=== PATIENT | male | born 1965 | race Caucasian/White ===

== ENCOUNTER 2024-05-24 14:57 | Outpatient (CLI) | payer OTHER, SELFPAY ==
--- NOTE | ~2024-05-24 | XR_ITS ---
XR abdomen/kub 1V Ordering provider: Ivette García PA-C History: . CALCIUM KIDNEY STONE . Comparison: None. FINDINGS: BOWEL: Nonobstructive bowel gas pattern. ORGANOMEGALY: None. SIGNIFICANT PATHOLOGIC CALCIFICATIONS: Calcifications in the right and left kidneys suggestive of sto corine. OTHER: No free air is seen under the diaphragm. Degenerative changes of the spine. IMPRESSION: NO ACUTE ABDOMINAL FINDINGS. Bilateral renal stones. Reviewed, dictated and finalized at location A.
== END 2024-05-24 14:58 | disposition home or self-care (01) ==
LOC: ANHIMG 15:03
PROVIDERS: Visit Provider Physician Assistant
DX: N20.0 Calculus of kidney (principal)
CPT/HCPCS: 74018

== ENCOUNTER 2024-06-28 00:14 | Day surgery (SDC) | payer OTHER, SELFPAY ==
--- NOTE | 2024-06-19 07:42 | PM.HPGS ---
History of Present Illness History of Present Illness Consent: Risks, benefits, and alternatives have been discussed and questions answered. Patient agrees to proceed with procedure. Chief complaint: right kidney stone Narrative: Vazquez Coles is a 59 year old male with a history of multiple recurrent stones. He 1st saw our nurse practitioner, Ivette Woodard, in November [address] scan at [facility] showed 2 stones in his left ureter and a 7 mm 10 mm stone in his right kidney. He opted to try to pass a left ureteral stones and did not return until May. Follow-up KUB showed an absence of identifiable stones in his left ureter but a 10 mm and 7 mm stone in his right kidney. After discussion options he is elected for right ESWL. Patient is aware of the risks including, but not limited to, adverse cardiopulmonary events, need for additional procedures, hematuria and perinephric hematoma Review of Systems Review of Systems: All systems reviewed & are unremarkable except as noted in HPI and below Assessment and Plan Assessment and plan (1) Right renal stone: Code(s): N20.0 - Calculus of kidney Status: Acute Assessment and Plan: Right ESWL
[2024-06-20 10:54] VITALS: BMI 30.8
--- NOTE | 2024-06-20 10:55 | PC.NURSE ---
Report to the Outpatient Waiting Room, entrance under the green pavilion located off [facility], at time _0600_ on date _[id number]_. Planned Procedure Time: _0730_. Time changes happen often and if your time is changed the preop area will call you the afternoon before. - You and your visitor will be asked to self-screen and do not enter if you have any COVID symptoms. - A mask is optional within the hospital at this time. Patients may have clear liquids (water, carbonated beverages, clear teas, apple juice) until 3 hours prior to surgery with a maximum of 20 ounces. - No food from midnight until time of surgery Take the following medications with a SIP of water the morning of surgery: ___Advair and nebulizer or albuterol inhaler if needed. DO NOT STOP ANY OF YOUR OTHER PRESCRIPTION MEDICATIONS PRIOR TO SURGERY ?EXCEPT THE FOLLOWING Medications to discontinue per physician Hold Meloxicam per Dr Figueroa. Date to take last dose Please no make-up, nail tongan, hairspray, perfume, deodorant, or body powder the day of surgery. No jewelry (including any body piercings) or valuables the day of surgery, leave them at home. Please take a shower or bath the night before, or the morning of, surgery with an antibacterial soap. Wear comfortable, loose fitting clothing. - Jewelry must be removed prior to entering the operating room. Rings and piercings that are not removed may be cut off. - The hospital will not accept responsibility for valuables. - Please leave all valuables, including medications, at home the day of surgery. If you are going home after surgery, a licensed set key driver must drive you home. - NO public transportation without another adult if you receive anesthesia. - We recommend that an adult stay with you for 24 hours following discharge. - We also recommend that you do not drive, make important decision, drink alcoholic beverages, or take any drugs that were not prescribed by your health care provider for at least 24 hours after your discharge time. Follow any additional instructions given to you from your surgeon. If you or anyone in your household have experienced Covid symptoms in the past week, please notify your surgeon or the nurse liaison at the phone number below for possible testing. Telephone instructions given to __Lucaroby__and asked if any additional questions and then verbalized understanding. Patient advised to call surgeon office or pre surgery nurse liaison [phone] if any additional questions.
[2024-06-28] VITALS (9 sets, daily range): BP systolic 119–158; BP diastolic 67–92; PULSE 83–94; RESP 14–18; TEMP 36.3–36.7; O2SAT 96–100
--- NOTE | ~2024-06-28 | XR_ITS ---
Supine and upright views of the abdomen Clinical history: Lithotripsy COMPARISON: 05/24/2024 Findings: Bowel gas pattern is nonspecific. No evidence for obstruction or free air. Bilateral nephro lithiasis is similar to prior exam. There are 11 mm and 10 mm stones in the right kidney. There are m ultiple smaller stones in the left kidney. There is a 1 cm ovoid stone projecting over the left L4 tr ansverse process, likely a mid left ureteral stone. Osseous structures are intact. Impression: 1 cm mid left ureteral stone. Additional bilateral nephrolithiasis, as noted above, similar to prior exam. Reviewed, dictated and finalized at location M. Impression: 1 cm mid left ureteral stone. Additional bilateral nephrolithiasis, as noted above, similar to prior exam.
--- NOTE | 2024-06-28 05:54 | ECG_ITS ---
Test Date: 2024-06-28 07:09:44 Measurements Intervals [place] Rate: 82 P: 30 CT: 131 QRS: 59 QRSD: 101 T: 16 QT: 356 QTc: 417 Interpretive Statements SINUS RHYTHM NORMAL ELECTROCARDIOGRAM No previous ECG available for comparison Electronically Signed On 06-28-2024 14:58:40 CDT by Xavier Win M.D.
--- NOTE | 2024-06-28 06:18 | WPDHPUPDATE1 ---
History and Physical Update Update Date/Time: 06/28/24 06:18 History and Physical has been reviewed, including an updated exam of the patient. There are NO changes in the patient's condition. Risks, benefits, and alternatives have been discussed and questions answered. Patient agrees to proceed with procedure.
[2024-06-28 06:36] LABS: Add Urine Microscopic? YES; Appearance Urine Clear (Clear); Bacteria Urine None Seen /hpf; Bilirubin Urine Negative (Negative); Blood Urine 1+ (Negative); Color Urine Yellow (Yellow); Glucose Urine UA Negative (Negative); Ketones Urine Negative (Negative); Leukocyte Esterase Ur Trace LEU/UL (Negative); Nitrate Urine Negative (Negative); Non Pathogenic Casts 0-2; Protein Urine Negative (Negative); Specific Grav Ur 1.013 (1.001-1.035); Squamous Epithelial Cell Urine None Seen /hpf (Few); Urobilinogen Urine 0.2 mg/dL (<2.0); pH Urine 5.5 (5.0-9.0)
[2024-06-28 07:17] LABS: Partial Thromboplastin Time 34.4 Seconds (22.3-36.8)
--- NOTE | 2024-06-28 07:19 | WPDANESEPPF ---
Anes - Initial Pre Proc Eval Procedure: Operation Date: 06/28/24 07:30 Proposed Procedures p Right Extracorporeal Shock Wave Lithotripsy - Holden Figueroa MD Date/Time: 06/28/24 07:19 Surgeon: Holden Figueroa MD Pre Op Diagnosis: right kidney stone Patient Data Age: 59 Gender: M Height: 1.65 m Weight: 83.8 kg Last Vital Signs Temp 36.7 C 06/28/24 07:10 Pulse 90 06/28/24 07:10 Resp 18 06/28/24 07:10 BP 158/92 H 06/28/24 07:10 Pulse Ox 99 06/28/24 07:10 O2 Del Method Room Air 06/28/24 07:10 Allergies Allergy/AdvReac Type Severity Reaction Status Date / Time Iodinated Contrast Media Allergy Severe Anaphylactic Verified 06/28/24 07:08 Shock Sulfa (Sulfonamide Allergy Severe Hives Verified 06/28/24 07:08 Antibiotics) tetanus and diphtheria Allergy Severe Swelling Verified 06/28/24 07:08 toxoids Home Medications Medication Instructions Recorded Confirmed Type albuterol sulfate 90 mcg/actuation 2 inh inhalation [id number] PRN 06/20/24 06/28/24 History aerosol inhaler Dyspnea fluticasone 250 mcg-salmeterol 50 1 inh inhalation BID 06/20/24 06/20/24 History mcg/dose blistr powdr for inhalation hydrocodone 5 mg-acetaminophen 325 1 tablet PO Q4H PRN Pain 06/20/24 06/28/24 History mg tablet levofloxacin 500 mg tablet 500 mg PO DAILY 06/20/24 06/20/24 History meloxicam 7.5 mg tablet 7.5 mg PO DAILY PRN Pain 06/20/24 06/28/24 History montelukast 10 mg tablet 10 mg PO HS 06/20/24 06/20/24 History tamsulosin 0.4 mg capsule 0.4 mg PO HS 06/20/24 06/20/24 History Laboratory Tests 06/28/24 06:22 PT 13.0 Seconds (11.1-14.7) INR 1.0 APTT 34.4 Seconds (22.3-36.8) Urine Color Yellow (Yellow) Urine Appearance Clear (Clear) Urine pH 5.5 (5.0-9.0) Ur Specific Slater 1.013 (1.001-1.035) Urine Protein Negative mg/dL (Negative) Urine Glucose (UA) Negative mg/dL (Negative) Urine Ketones Negative mg/dL (Negative) Ur Blood (Man) 1+ H (Negative) Urine Nitrate Negative (Negative) Urine Bilirubin Negative (Negative) Urine Urobilinogen 0.2 mg/dL (<2.0) Leukocyte Esterase Rfl Trace H BUBBA/UL (Negative) Urine RBC 6-10 H /hpf (0-2) Urine WBC 6-10 H /hpf (0-3) Ur Squamous Epith Cells None seen /hpf (Few) Urine Bacteria None seen /hpf Urine Casts 0-2 Patient hx anesthesia problems: none Family hx anesthesia problems: none Results Review: All pre-operative results and documents have been reviewed as part of the pre-operative evaluation. [facility] Social History Social History Smoking packs per day: 1 Smoking cigarettes per day: 20.0 Years smoked: 40 Smoking pack-years: 40.00 Smoking status: Former smoker Tobacco type: cigarettes Smoking end date: 06/17/24 Alcohol intake: current Living arrangements: with family Spiritual care concerns: No Anes - Eval Final PreProcedure Day of Procedure 06/28/24 07:19 Patient weight: overweight Heart: regular rate and rhythm Lungs: decreased breath sounds Airway: Mallampati scale class II Neurological: alert and oriented Last oral intake: >/= 8 hours ASA classification: III Emergent: no Anesthetic plan: proceed Anesthesia type and monitoring: general GIVS and standard monitoring Results Review: All pre-operative results and documents have been reviewed as part of the pre-operative evaluation. Informed Consent: The patient's anesthetic plan and its attendant risks and benefits were discussed with the patient/family/POA. Questions were solicited and answers provided to the satisfaction of the patient/family/POA.
--- NOTE | 2024-06-28 08:13 | W.PM.PROC2 ---
Procedure Note - Detailed Date of Procedure 06/28/24 Pre-op Diagnosis Left ureteral and kidney stones Post-op Diagnosis Same Procedure Performed Left ESWL Surgeon Holden Figueroa MD Anesthesia General Description of Procedure The patient was brought to the operative suite where he was placed in the supine position on the Dornier lithotripsy table. The focal point of the lithotripter was placed first at a 7-8mm left mid-uretera calculus. A total of 2500 shocks were delivered at a power setting of 4. At that point there was very good fragmentation. We then treated 3 small stones in left kidney -> delivering 500 shocks to each. There appeared to be good fragmentation of the stone. The patient tolerated the procedure well and was taken to the recovery room in good condition. Drains No Packing No Pathology Yes Complications No immediate complications
[2024-06-28] MEDS: LACTATED RINGERS 1,000 ML 30 ML IV CONT ×2 (08:30)
[2024-06-28] MEDS: ceFAZolin 2 GM/D5W 50 ML 2 GM/50 ML BAG IVPB (08:30)
[2024-06-28] MEDS: fentaNYL CITRATE INJ (*CRX) 100 MCG/2 ML VIAL 25 MCG IV PUSH ×3 (09:06→09:11)
[2024-06-28] MEDS: oxyCODONE HCL (*CRX) 5 MG TAB IR PO (09:52)
== END 2024-06-28 10:11 | disposition home or self-care (01) ==
PROVIDERS: Visit Provider Urology
PROC: (CPT 50590; principal; 2024-06-28 07:30)
DX: N20.2 Calculus of kidney with calculus of ureter (principal); Z79.51 Long term (current) use of inhaled steroids; Z87.891 Personal history of nicotine dependence
CPT/HCPCS: 50590; 36415; 74018; 81001; 85610; 85730; 87086; 93005; A9270; J0690; J1100; J2250; J2371; J2405; J2704; J3010; J7120

== ENCOUNTER 2025-08-15 00:58 | Day surgery (SDC) | payer OTHER, SELFPAY ==
[2025-08-08 08:30] VITALS: BMI 29.9
--- NOTE | 2025-08-08 08:33 | PC.NURSE ---
[facility] has started construction of its new state of the art ER which will open Spring 2026. With this, we anticipate parking may be a challenge for some our surgical patients and families. Parking spaces are limited but are available for all Surgical, obstetrics, and ER patients sharing this lot. If you arrive and find you are having a hard time finding a parking space, please note that we understand the challenges, please drive around the hospital and park near Hospital Entrance 1. When you enter this entrance, you can ask a volunteer to direct or take you back to the surgical waiting area to check in. We appreciate everyone?s understanding of these expected challenges while we build for your future. Report to the Outpatient Waiting Room, entrance under the green pavilion located off [address], at time _0830_ on date _[id number]_. Planned Procedure Time: _1030_.? Time changes happen often and if your time is changed the preop area will call you the afternoon before. - You and your visitor will be asked to self-screen and do not enter if you have any COVID symptoms. Please call surgeon if you need to reschedule. - A mask is optional within the hospital at this time. Patients may have clear liquids (water, carbonated beverages, clear teas, apple juice) until 3 hours prior to surgery with a maximum of 20 ounces. - No food from midnight until time of surgery and no smoking, or chewing tobacco (or any form of nicotine). No chewing gum, candy or mints. Take only the following medications with a SIP of water on the morning of surgery: ____Inhalers and if needed nebulizer. DO NOT STOP ANY OF YOUR OTHER PRESCRIPTION MEDICATIONS PRIOR TO SURGERY EXCEPT THE FOLLOWING Hold all vitamins and supplements for 3 days per anesthesiologist. Medications to discontinue per physician ____Patient stopped Meloxicam [id number] Date to take last dose Please no make-up, nail new zealander, hairspray, perfume, deodorant, or body powder the day of surgery.? No jewelry (including any body piercings) or valuables the day of surgery, leave them at home.? Please take a shower or bath the night before, or the morning of, surgery with an antibacterial soap.? Wear comfortable, loose fitting clothing.? - Jewelry must be removed prior to entering the operating room.? Rings and piercings that are not removed may be cut off. - The hospital will not accept responsibility for valuables.? - Please leave all valuables, including medications, at home the day of surgery. If you are going home after surgery, a licensed company tanker truck driver must drive you home.? - NO public transportation without another adult if you receive anesthesia. - We recommend that an adult stay with you for 24 hours following discharge. - We also recommend that you do not drive, make important decision, drink alcoholic beverages, or take any drugs that were not prescribed by your health care provider for at least 24 hours after your discharge time. Follow any additional instructions given to you from your surgeon. Telephone instructions given to __Tim___and asked if any additional questions and then verbalized understanding. Patient advised to call surgeon office or pre surgery nurse liaison [phone] if any additional questions.
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
[2025-08-15] VITALS (8 sets, daily range): BP systolic 138–186; BP diastolic 71–113; PULSE 82–100; RESP 14–18; TEMP 36.4–36.7; O2SAT 97–100
--- NOTE | ~2025-08-15 | XR_ITS ---
Abdominal radiograph(s) INDICATION: ESWL COMPARISON: 06/28/2024 TECHNIQUE: 2 views AP abdomen FINDINGS: 2 right-sided renal stones persist, both roughly 9-10 mm. Several small stones persist left kidney. No ureteral calculi identified. Scattered colonic stool. Small bowel loops not well seen. No acute bony abnormality. IMPRESSION: 1. Bilateral nephrolithiasis as before. 2. No ureteral stones identified. Reviewed, dictated and finalized at location R.
--- OUTSIDE RECORDS SUMMARY | 2025-08-15 01:00 | XMS_ITS | Encounter Summary ---
Author Organization [employer] Address [address] [place] [address] Care Team Providers Care Tv Host Name Role Phone Vazquez Mcleod MD Primary Care Provider [phone] Encounter Details Date Type Department Care Team (Late st Contact Info) Description 03/11/1999 Outpatient Historical [facility] Medicine 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[employer] Gender Identity Not on file Sexual Orientation Not on file documented as of this encounter Plan of Treatment Not on file documented as of this encounter Visit Diagnoses Not on filedocumented in this encounter Additional Health Concerns Infection Onset Date Last Indicated Resolved Time R/O Respiratory 12/18/2023 12/18/2023 12/18/2023 1 0:55 PM MASTER [employer] documented as of this encounter Care Teams Tv Host Relationship Specialty Start [place] [address] [place] [address] PCP - General 07/21/00 03/16/20 documented as of this encounter
--- OUTSIDE RECORDS SUMMARY | 2025-08-15 01:00 | XMS_ITS | Encounter Summary ---
Author Organization [employer] Address 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 Gender Identity Not on file Sexual Orientation Not on file documented as of this encounter Plan of Treatment Not on file documented as of this encounter Visit Diagnoses Diagnosis Chest pain, unspecified- Primary documented in this encounter Additional Health Concerns Infection Onset Date Last Indicated Resolved Time R/O Respiratory 12/18/2023 12/18/2023 12/18/2023 1 0:55 PM SECTION LEADER AND MACHINE SETTER documented as of this encounter Care Teams Police And Fire Dispatcher Relationship Specialty Start [place] [address] [place] [address] PCP - General 07/21/00 03/16/20 documented as of this encounter
--- OUTSIDE RECORDS SUMMARY | 2025-08-15 01:00 | XMS_ITS | Clinical Summary ---
Author Organization [facility] Address [facility] [place] [address] Care Team Providers Care Cyber Instructor Name Role Phone Unavailable Primary Care Provider Unavailabl e Social History Tobacco Use Types Packs/Day Years Used Date Smoking Tobacco: Never Assessed Sex and Gender Information Value Date Recorded Sex Assigned at Not on file Legal Sex Male 4:33 PM CDT Gender Identity Not on file Sexual Orientation Not on file Plan of Treatment Health Maintenance Due Date Last Done Comments Colorectal Cancer Screening Colonoscopy (10 Years) 1966 Annual Physical 1969 Hepatitis C 1984 DTaP, Tdap and Td Vaccines ( 1 - Tdap) 1985 Pneumococcal Vaccine: 50+ Ye ars (1 of 1 - PCV) 2016 Zoster Vaccines (1 of 2) 2016 COVID-19 Vaccine ( - 2023-2 5 season) 2025 Meningococcal B Vaccine Aged Out No l onger eligible based on patient's age to complete this topic Meningococcal Vaccine Aged Out No iesha shmuel eligible based on patient's age to complete this topic RSV Immunizations Under 20 Months Aged Out No longer eligible based on patient's age to complete this topic [place] [address] [place] [address]
--- OUTSIDE RECORDS SUMMARY | 2025-08-15 01:00 | XMS_ITS | Encounter Summary ---
Author Organization Known Address [address] [place] [address] Care Team Providers Care Public Services Assistant Name Role Phone Vazquez Mcleod MD Primary Care Provider [phone] Encounter Details Date Type Department Care Team (Late st Contact Info) Description 03/04/1999 Outpatient Historical [facility] Medicine 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 Gender Identity Not on file Sexual Orientation Not on file documented as of this encounter Plan of Treatment Not on file documented as of this encounter Visit Diagnoses Not on filedocumented in this encounter Additional Health Concerns Infection Onset Date Last Indicated Resolved Time R/O Respiratory 12/18/2023 12/18/2023 12/18/2023 1 0:55 PM PLATING FOREMAN documented as of this encounter Care Teams Public Services Assistant Relationship Specialty Start [place] [address] [place] [address] PCP - General 07/21/00 03/16/20 documented as of this encounter
--- OUTSIDE RECORDS SUMMARY | 2025-08-15 01:00 | XMS_ITS | Clinical Summary ---
Author Organization [facility] Address [address] [place] [address] Phone Care Team Providers Care Chef Passenger Vessel Name Role Phone Unavailable Primary Care Provider Unavailabl e Allergies Active Allergy Reactions Criticality Noted Date Comments Cefaclor Hives,Rash High 04/26/2010 Iodinated Contrast Media Anaphylaxis,Maylin rtness of Breath/Wheezing High 04/26/2010 Sulfa (Sulfonamide Antibiotics) Hives High 04/26/2010 Sulfamethoxazole-Trimethopr im Rash Low 04/27/2014 Tetanus Toxoid Swelling Low 04/27/2014 Tetanus Vaccines And Toxoid Swelling Low 04/26/20 10 Medications albuterol (PROVENTIL,VENT CARMENCITA) 90 mcg/Actuation Inhalation Aero Take by inhalation every 6 hours as needed. Active Albuterol Sulfate 1.25 mg/3 mL Inhalation Nebu Take 1.25 mg by inhalation every 4 hours as needed. 0 Active diphenhydrAMINE (BENADRYL) 25 mg Oral tablet Take 25 mg by mouth every 6 hours as needed. Active albuterol-iprat ropium (COMBIVENT) 103-18 mcg/Actuation Inhalation Aero Take 2 Puffs by inhalation 4 times daily. 1 Inhaler 2 0 Active fluticasone propion-salmete roL (ADVAIR DISKUS,WIXELA INHUB) 500-50 mcg/dose disk inhaler Take 1 Puff by inhalation 2 times daily. Active montelukast (SINGULAIR) 10 mg tablet Take 10 mg by mouth daily at bedtime. Active famotidine (PEPCID) 40 mg tablet Take 40 mg by mouth daily. At bedtime Active tamsulosin (FLOMAX) 0.4 mg capsule Take 0.4 mg by mouth daily. Active Active Problems Problem Noted Date Diagnosed Date Vertigo 12/20/2023 Acute exacerbation of chroni c obstructive pulmonary disease (COPD) 04/27/2010 Hypoxemia 04/27/2010 Asthma 04/27/2010 Tobacco abuse 04/27/2010 Hypokalemia 04/27/2010 Leukocytosis 04/27/2010 Subcutaneous emphysema 04/27/2010 Family History Medical History Relation Name Comments Hypertension Mother Relation Name Status Comments Father Alive Mother Alive Sister Alive Social History Tobacco Use Types Packs/Day Years Used Date Smoking Tobacco: Heavy Smoker Cigarettes 0.5 25 Alcohol Use Standard Drinks/Week Comments Yes 0 (1 standard drink = 0.6 oz pur e alcohol) occ. Feeling Safe Answer Date Recorded Are you in a relationship wi th someone who hurts you emotionally and/or physically? No 12/18/2023 Food Insecurity Answer Date Recorded Social/Environmental Concerns No concerns Transportation Needs Answer Date Record ed Social/Environmental Concerns No concerns Housing Stability Answer Date Recorded Social/Environmental Concerns No concerns Utility Needs Answer Date Recorded Social/Environmental Concerns No concerns Sex and Gender Information Value Date Recorded Sex Assigned at Not on file Legal Sex Male 12:36 AM SYSTEMS COORDINATOR Gender Identity Not on file Sexual Orientation Not on file Last Filed Vital Signs Vital Sign Reading Time Taken Comments Blood Pressure 149/86 12/20/2023 12:07 PM SYSTEMS COORDINATOR Pulse 91 12/20/2023 12:07 PM SYSTEMS COORDINATOR Temperature 36.6 C (97.9 F) 12/20/2023 12:07 PM SYSTEMS COORDINATOR Respiratory Rate 18 12/20/2023 12:07 PM SYSTEMS COORDINATOR Oxygen Saturation 99% 12/20/2023 12:07 PM SYSTEMS COORDINATOR Inhaled Oxygen Concentration - - Weight 83 kg (183 lb) 12/18/2023 8:21 PM SYSTEMS COORDINATOR Height 165.1 cm (5' 5) 12/18/2023 8:21 PM SYSTEMS COORDINATOR Body Mass Index 30.45 12/18/2023 8:21 PM SYSTEMS COORDINATOR Plan of Treatment Health Maintenance Due Date Last Done Comments DTAP/TDAP/TD VACCINES (1 - Tdap) 1985 HEPATITIS B VACCINES (1 of 3 - 19+ 3-dose series) 03/20 COLORECTAL SCREENING 2011 Colorectal Cancer Screening 2011 FIT-DNA Q 3 years 2011 FIT/FOBT Q 1 year 2011 Flex Sig/CT Colonography Q 5 years 2011 ZOSTER VACCINE (1 of 2) 2016 INFLUENZA VACCINE (#1) 2025 09/09/[address] [facility] [place] [id number] [employer] Express Advance Directives For more information, please contact: [phone] * Full Code (Latest Code Status on File) Date Activated Date Inactivated Comments 12/20/2023 8:19 AM 12/20/2023 3:34 PM * Full Code Date Activated Date Inactivated Comments 04/27/2010 3:13 AM 05/03/2010 3:39 PM * Full Code Date Activated Date Inactivated Comments 04/26/2010 11:50 PM 04/27/2010 3:13 AM
--- OUTSIDE RECORDS SUMMARY | 2025-08-15 01:00 | XMS_ITS | Encounter Summary ---
Author Organization [employer] Address [address] [place] [address] Care Team Providers Care Sign Shop Supervisor Name Role Phone Vazquez Mcleod MD Primary Care Provider [phone] Encounter Details Date Type Department Care Team (Late st Contact Info) Description 12/15/[address] [facility] Medicine [address] [place] [phone] Anastacio Gutierrez MD NO ADDRESS ON FILE Social History Tobacco Use Types Packs/Day Years Used Date Smoking Tobacco: Never Assessed Sex and Gender Information Value Date Recorded Sex Assigned at Not on file Legal Sex Male 12:36 AM WORKERS' COMPENSATION MEDIATOR Gender Identity Not on file Sexual Orientation Not on file documented as of this encounter Plan of Treatment Not on file documented as of this encounter Visit Diagnoses Not on filedocumented in this encounter Additional Health Concerns Infection Onset Date Last Indicated Resolved Time R/O Respiratory 12/18/2023 12/18/2023 12/18/2023 1 0:55 PM WORKERS' COMPENSATION MEDIATOR documented as of this encounter Care Teams Sign Shop Supervisor Relationship Specialty [place] [address] [place] [phone] PCP - General 07/21/00 03/16/20 documented as of this encounter
--- OUTSIDE RECORDS SUMMARY | 2025-08-15 01:00 | XMS_ITS | Encounter Summary ---
Author Organization [employer] Address [address] [place] [address] Care Team Providers Care Mold Insert Changer Name Role Phone Vazquez Mcleod MD Primary Care Provider Encounter Details Date Type Department Care Team (Late st Contact Info) Description 10/06/1999 Outpatient Historical [facility] Social History Tobacco Use Types Packs/Day Years Used Date Smoking Tobacco: Never Assessed Sex and Gender Information Value Date Recorded Sex Assigned at Not on file Legal Sex Male 12:36 AM COMMUNITY HEALTH EDUCATION COORDINATOR Gender Identity Not on file Sexual Orientation Not on file documented as of this encounter Plan of Treatment Not on file documented as of this encounter Visit Diagnoses Not on filedocumented in this encounter Additional Health Concerns Infection Onset Date Last Indicated Resolved Time R/O Respiratory 12/18/2023 12/18/2023 12/18/2023 1 0:55 PM COMMUNITY HEALTH EDUCATION COORDINATOR documented as of this encounter Care Teams Mold Insert Changer Relationship Specialty [place] [address] [place] [address] PCP - General 07/21/00 03/16/20 documented as of this encounter
--- OUTSIDE RECORDS SUMMARY | 2025-08-15 01:00 | XMS_ITS | Encounter Summary ---
Author Organization [facility] Address [address] [place] [address] Care Team Providers Care Superintendent Geophysical Laboratory Name Role Phone Ligiaeugenia Tawny KNAPP-PAPER CONE MACHINE OPERATOR Primary Care Provider + Akil Figueroa MD Unavailable Encounter Details Date Type Department Care Team (Late st Contact Info) Description 06/28/2024 Op/Procedure Report External [facility] Health Information [address] [place] [address] Document, Scanned Social History Tobacco Use Types Packs/Day Years Used Date Smoking Tobacco: Every Day Cigarettes 0.3 39.7 Started: 1985 Smokeless Tobacco: Never Alcohol Use Standard Drinks/Week Comments Yes 2 (1 standard drink = 0.6 oz pur e alcohol) rarely AUDIT-C Answer Date Recorded Q1: How often do you have a drink containing alcohol? Never 05/07/2024 Q2: How many drinks containi ng alcohol do you have on a typical day when you are drinking? Patient does not drink Q3: How often do you have si x or more drinks on one occasion? Never 05/07/2024 PHQ-2 Answer Date Recorded Patient Health Questionnaire-2 Score 0 05/17/2024 Sex and Gender Information Value Date Recorded Sex Assigned at Male 10/21/2024 11:57 AM ADVERTISING OPERATIONS MANAGER Legal Sex Male 5:38 AM ADVERTISING OPERATIONS MANAGER Gender Identity Male 10/21/2024 11:57 AM ADVERTISING OPERATIONS MANAGER Sexual Orientation Straight 10/21/2024 11 :57 AM ADVERTISING OPERATIONS MANAGER documented as of this encounter Functional Status * Is person deaf or have serious hearing difficulty? Answer Date of Assessment Author No 04/08/2020 4:06 PM Yamil Kirkland RN * Is person blind or have serious difficulty seeing? Answer Date of Assessment Author No 04/08/2020 4:06 PM Yamil Kirkland RN * Does person have serious difficulty walking/climbing stairs? Answer Date of Assessment Author No 04/08/2020 4:06 PM Yamil Kirkland RN * Does person have difficulty dressing/bathing? Answer Date of Assessment Author No 04/08/2020 4:06 PM Yamil Kirkland RN * Does person have difficulty doing errands alone? Answer Date of Assessment Author No 04/08/2020 4:06 PM Yamil Kirkland RN documented as of this encounter Mental Status * Does person have difficulty concentrating/remembering/making decisions? Answer Entry Date Author No 04/08/2020 4:06 PM Yamil Kirkland RN documented in this encounter Plan of Treatment Upcoming Encounters Date Type Department Care Team (Late st Contact Info) Description 09/19/2025 8:45 AM CDT Office Visit [address] [address] Tawny Cooley APRN-CNP [address] [place] [phone] 01/16/2026 2:45 PM ADVERTISING OPERATIONS MANAGER Office Visit [address] [address] Tawny Cooley APRN-CNP [address] [place] [phone] documented as of this encounter Visit Diagnoses Not on filedocumented in this encounter Additional Health Concerns Infection Onset Date Last Indicated Resolved Time COVID-19 Under Investigation 12/04/2024 12/04/2024 12/04/2024 2:14 PM ADVERTISING OPERATIONS MANAGER documented as of this encounter Care Teams Superintendent Geophysical Laboratory Relationship Specialty Start Date End Date Tawny Cooley APRN-CNP PCP - General Nurse Practitioner Family 04/24/20 Akil Figueroa MD [address] [facility] [address] [facility] [address] [place] [address] Urology 07/23/24 documented as of this encounter
--- OUTSIDE RECORDS SUMMARY | 2025-08-15 01:00 | XMS_ITS | Encounter Summary ---
Author Organization [facility] Address [address] [place] [address] Care Team Providers Care District Court Justice Name Role Phone Unavailable Primary Care Provider Unavailabl e Encounter Details Date Type Department Care Team (Late st Contact Info) Description 04/27/2019 Abstract [facility] CONVERSION [address] [place] [address] , Generic Conversion, Social History Tobacco Use Types Packs/Day Years [...]
--- OUTSIDE RECORDS SUMMARY | 2025-08-15 01:00 | XMS_ITS | Encounter Summary ---
Author Organization [employer] Address [address] [place] [address] Care Team Providers Care Freight And Passenger Agent Name Role Phone Vazquez Mcleod MD Primary Care Provider [phone] Encounter Details Date Type Department Care Team (Late st Contact Info) Description 06/03/1999 Outpatient Historical [facility] Medicine [address] [place] [phone] [place] [address] [place] [address] Social History Tobacco Use Types Packs/Day Years Used Date Smoking Tobacco: Never Assessed Sex and Gender Information Value Date Recorded Sex Assigned at Not on file Legal Sex Male 12:36 AM BONUS CLERK Gender Identity Not on file Sexual Orientation Not on file documented as of this encounter Plan of Treatment Not on file documented as of this encounter Visit Diagnoses Not on filedocumented in this encounter Additional Health Concerns Infection Onset Date Last Indicated Resolved Time R/O Respiratory 12/18/2023 12/18/2023 12/18/2023 1 0:55 PM BONUS CLERK documented as of this encounter Care Teams Freight And Passenger Agent Relationship Specialty [place] [address] [place] [address] PCP - General 07/21/00 03/16/20 documented as of this encounter
--- OUTSIDE RECORDS SUMMARY | 2025-08-15 01:00 | XMS_ITS | Encounter Summary ---
Author Organization [employer] Address [address] [place] [address] Care Team Providers Care Kidney Trimmer Name Role Phone Vazquez Mcleod MD Primary Care Provider Encounter Details Date Type Department Care Team (Late st Contact Info) Description 10/06/1999 Outpatient Historical [facility] Medicine [address] [place] [phone] Anastacio Gutierrez MD NO ADDRESS ON FILE Social History Tobacco Use Types Packs/Day Years Used Date Smoking Tobacco: Never Assessed Sex and Gender Information Value Date Recorded Sex Assigned at Not on file Legal Sex Male 12:36 AM BILINGUAL CUSTOMER SERVICE SPECIALIST Gender Identity Not on file Sexual Orientation Not on file documented as of this encounter Plan of Treatment Not on file documented as of this encounter Visit Diagnoses Not on filedocumented in this encounter Additional Health Concerns Infection Onset Date Last Indicated Resolved Time R/O Respiratory 12/18/2023 12/18/2023 12/18/2023 1 0:55 PM BILINGUAL CUSTOMER SERVICE SPECIALIST documented as of this encounter Care Teams Kidney Trimmer Relationship Specialty [place] [address] [place] [phone] PCP - General 07/21/00 03/16/20 documented as of this encounter
--- OUTSIDE RECORDS SUMMARY | 2025-08-15 01:01 | XMS_ITS | Encounter Summary ---
Author Organization [employer] Address [address] [place] [address] Care Team Providers Care Director Long Term Care Name Role Phone Vazquez Mcleod MD Primary Care Provider [phone] Encounter Details Date Type Department Care Team (Late st Contact Info) Description 04/11/2000 Outpatient Historical [facility] Medicine [address] [place] [phone] [place] [address] [place] [address] Social History Tobacco Use Types Packs/Day Years Used Date Smoking Tobacco: Never Assessed Sex and Gender Information Value Date Recorded Sex Assigned at Not on file Legal Sex Male 12:36 AM OBJECT ORIENTED DEVELOPER Gender Identity Not on file Sexual Orientation Not on file documented as of this encounter Plan of Treatment Not on file documented as of this encounter Visit Diagnoses Not on filedocumented in this encounter Additional Health Concerns Infection Onset Date Last Indicated Resolved Time R/O Respiratory 12/18/2023 12/18/2023 12/18/2023 1 0:55 PM OBJECT ORIENTED DEVELOPER documented as of this encounter Care Teams Director Long Term Care Relationship Specialty [place] [address] [place] [address] PCP - General 07/21/00 03/16/20 documented as of this encounter
--- OUTSIDE RECORDS SUMMARY | 2025-08-15 01:01 | XMS_ITS | Encounter Summary ---
Author Organization [employer] Address [address] [place] [address] Care Team Providers Care Suppression Crew Leader Name Role Phone Vazquez Mcleod MD Primary Care Provider [phone] Encounter Details Date Type Department Care Team (Late st Contact Info) Description 03/21/2000 Outpatient Historical [facility] Medicine [address] [place] [phone] [place] [address] [place] [address] Social History Tobacco Use Types Packs/Day Years Used Date Smoking Tobacco: Never Assessed Sex and Gender Information Value Date Recorded Sex Assigned at Not on file Legal Sex Male 12:36 AM YARN MAN Gender Identity Not on file Sexual Orientation Not on file documented as of this encounter Plan of Treatment Not on file documented as of this encounter Visit Diagnoses Not on filedocumented in this encounter Additional Health Concerns Infection Onset Date Last Indicated Resolved Time R/O Respiratory 12/18/2023 12/18/2023 12/18/2023 1 0:55 PM YARN MAN documented as of this encounter Care Teams Suppression Crew Leader Relationship Specialty [place] [address] [place] [address] PCP - General 07/21/00 03/16/20 documented as of this encounter
--- OUTSIDE RECORDS SUMMARY | 2025-08-15 01:01 | XMS_ITS | Encounter Summary ---
Author Organization [employer] Address [address] [place] [address] Care Team Providers Care Manager Regulatory Name Role Phone Vazquez Mcleod MD Primary Care Provider [phone] Encounter Details Date Type Department Care Team (Late st Contact Info) Description 12/30/1999 Outpatient Historical [facility] Medicine [address] [place] [phone] [place] [address] [place] [address] Social History Tobacco Use Types Packs/Day Years Used Date Smoking Tobacco: Never Assessed Sex and Gender Information Value Date Recorded Sex Assigned at Not on file Legal Sex Male 12:36 AM SENIOR TECHNICAL BUSINESS ANALYST Gender Identity Not on file Sexual Orientation Not on file documented as of this encounter Plan of Treatment Not on file documented as of this encounter Visit Diagnoses Not on filedocumented in this encounter Additional Health Concerns Infection Onset Date Last Indicated Resolved Time R/O Respiratory 12/18/2023 12/18/2023 12/18/2023 1 0:55 PM SENIOR TECHNICAL BUSINESS ANALYST documented as of this encounter Care Teams Manager Regulatory Relationship Specialty Start [place] [address] [place] [address] PCP - General 07/21/00 03/16/20 documented as of this encounter
--- OUTSIDE RECORDS SUMMARY | 2025-08-15 01:01 | XMS_ITS | Encounter Summary ---
Author Organization [employer] Address [address] [place] [address] Care Team Providers Care Promotional Marketing Analyst Name Role Phone Vazquez Mcleod MD Primary Care Provider Encounter Details Date Type Department Care Team (Late st Contact Info) Description 06/13/2001 Emergency [facility] Matti Hernández MD [facility] [place] [address] Er, Authorized P NO ADDRESS ON FILE Urethritis, unspecified (Primary Dx) Social History Tobacco Use Types Packs/Day Years Used Date Smoking Tobacco: Never Assessed Sex and Gender Information Value Date Recorded Sex Assigned at Not on file Legal Sex Male 12:36 AM LEAN MANUFACTURING COORDINATOR Gender Identity Not on file Sexual Orientation Not on file documented as of this encounter Plan of Treatment Not on file documented as of this encounter Visit Diagnoses Diagnosis Urethritis, unspecified- Primary documented in this encounter Additional Health Concerns Infection Onset Date Last Indicated Resolved Time R/O Respiratory 12/18/2023 12/18/2023 12/18/2023 1 0:55 PM LEAN MANUFACTURING COORDINATOR documented as of this encounter Care Teams Promotional Marketing Analyst Relationship Specialty [place] [address] [facility] [address] [place] [phone] PCP - General 07/21/00 03/16/20 documented as of this encounter
--- OUTSIDE RECORDS SUMMARY | 2025-08-15 01:01 | XMS_ITS | Encounter Summary ---
Author Organization [facility] Address [address] [place] [address] Care Team Providers Care Recovery Collector Name Role Phone Ligiaeugenia Tawny KNAPP-HARDNESS INSPECTOR Primary Care Provider + Akil Figueroa MD Unavailable Encounter Details Date Type Department Care Team ([facility] st Contact Info) Description 08/19/2022 Op/Procedure Report External [facility] [address] [place] [phone] Document, Scanned Social History Tobacco Use Types Packs/Day Years Used Date Smoking Tobacco: Every Day Cigarettes 0.5 39.7 Started: 1985 Smokeless Tobacco: Never Alcohol Use Standard Drinks/Week Comments Not Currently 1.7 (1 standard drink = 0.6 oz p ure alcohol) on weekends AUDIT-C Answer Date Recorded Q1: How often do you have a drink containing alc ohol? Never 11/15/2021 Q2: How many drinks containi ng alcohol do you have on a typical day when you are drinking? Patient declined 11/15/2021 Q3: How often do you have si x or more drinks on one occasion? Never 11/15/2021 PHQ-2 Answer Date Recorded PHQ2 TOTAL SCORE 0 08/22/2022 Sex and Gender Information Value Date Recorded Sex Assigned at Male 10/21/2024 11:57 AM SOLAR MANAGER Legal Sex Male 5:38 AM SOLAR MANAGER Gender Identity Male 10/21/2024 11:57 AM SOLAR MANAGER Sexual Orientation Straight 10/21/2024 11 :57 AM SOLAR MANAGER COVID-19 Exposure Response Date Recorded In the last 10 days, have yo u been in contact with someone who was confirmed or suspected to have Coronavirus/COVID-19? No / Unsure 08/22/2022 2:07 PM CDT documented as of this encounter Functional Status * Is person deaf or have serious hearing difficulty? Answer Date of Assessment Author No 04/08/2020 4:06 PM CDT Yamil Franks RN * Is person blind or have serious difficulty seeing? Answer Date of Assessment Author No 04/08/2020 4:06 PM CDT Yamil Franks RN * Does person have serious difficulty walking/climbing stairs? Answer Date of Assessment Author No 04/08/2020 4:06 PM CDT Yamil Franks RN * Does person have difficulty dressing/bathing? Answer Date of Assessment Author No 04/08/2020 4:06 PM SAVANAHT Yamil Franks RN * Does person have difficulty doing [...] Description 09/19/2025 8:45 AM CDT Office Visit [address] [phone] Tawny Cooley APRN-CNP [address] [place] [phone] 01/16/2026 2:45 PM SOLAR MANAGER Office Visit [address] [phone] Tawny Cooley APRN-CNP [address] [place] [phone] documented as of this encounter Visit Diagnoses Not on filedocumented in this encounter Additional Health Concerns Infection Onset Date Last Indicated Resolved Time COVID-19 Under Investigation 12/04/2024 12/04/2024 12/04/2024 2:14 PM SOLAR MANAGER documented as of this encounter Care Teams Recovery Collector Relationship Specialty Start Date End Date Tawny Cooley APRN-NEENA PCP - General Nurse Practitioner Family 04/24/20 Akil Figueroa MD [address] [facility] [address] [facility] [address] [place] [address] Urology 07/23/24 documented as of this encounter
--- OUTSIDE RECORDS SUMMARY | 2025-08-15 01:01 | XMS_ITS | Encounter Summary ---
Author Organization [employer] Address [address] [place] [address] Care Team Providers Care Elevator Adjuster Name Role Phone Vazquez Mcleod MD Primary Care Provider [phone] Encounter Details Date Type Department Care Team (Late st Contact Info) Description 03/16/[address] [facility] Medicine [address] [place] [phone] [place] [address] [place] [address] Social History Tobacco Use Types Packs/Day Years Used Date Smoking Tobacco: Never Assessed Sex and Gender Information Value Date Recorded Sex Assigned at Not on file Legal Sex Male 12:36 AM MATERIAL HANDLER LOADER Gender Identity Not on file Sexual Orientation Not on file documented as of this encounter Plan of Treatment Not on file documented as of this encounter Visit Diagnoses Not on filedocumented in this encounter Additional Health Concerns Infection Onset Date Last Indicated Resolved Time R/O Respiratory 12/18/2023 12/18/2023 12/18/2023 1 0:55 PM MATERIAL HANDLER LOADER documented as of this encounter Care Teams Elevator Adjuster Relationship Specialty [place] [address] [place] [address] PCP - General 07/21/00 03/16/20 documented as of this encounter
--- OUTSIDE RECORDS SUMMARY | 2025-08-15 01:01 | XMS_ITS | Encounter Summary ---
Author Organization [facility] Address [address] [place] [address] Care Team Providers Care Seat Maker Name Role Phone Ligiaeugenia Tawny KNAPP-REGIONAL DIRECTOR OF ADMISSIONS Primary Care Provider + Akil Figueroa MD Unavailable Encounter Details Date Type Department Care Team ([facility] st Contact Info) Description 08/19/2022 Op/Procedure Report External [facility] [address] [place] [phone] Document, Scanned Social History Tobacco Use Types [...] Sex Assigned at Male 10/21/2024 11:57 AM BELLHOP CAPTAIN Legal Sex Male 5:38 AM BELLHOP CAPTAIN Gender Identity Male 10/21/2024 11:57 AM BELLHOP CAPTAIN Sexual Orientation Straight 10/21/2024 11 :57 AM BELLHOP CAPTAIN COVID-19 Exposure Response Date Recorded In the [...] Description 09/19/2025 8:45 AM CDT Office Visit [address] [phone] Tawny Cooley APRN-CNP [address] [place] [phone] 01/16/2026 2:45 PM BELLHOP CAPTAIN Office Visit [address] [phone] Tawny Cooley APRN-CNP [address] [place] [phone] documented as of this encounter Visit Diagnoses Not on filedocumented in this encounter Additional Health Concerns Infection Onset Date Last Indicated Resolved Time COVID-19 Under Investigation 12/04/2024 12/04/2024 12/04/2024 2:14 PM BELLHOP CAPTAIN documented as of this encounter Care Teams Seat Maker Relationship Specialty Start Date End Date Tawny Cooley APRN-NEENA PCP - General Nurse Practitioner Family 04/24/20 Akil Figueroa MD [address] [facility] [address] [facility] [address] [place] [address] Urology 07/23/24 documented as of this encounter
--- OUTSIDE RECORDS SUMMARY | 2025-08-15 01:01 | XMS_ITS | Clinical Summary ---
Author Organization [facility] Address [address] [place] [address] Care Team Providers Care [employer] Rep Name Role Phone Ligiaeugenia Tawny KNAPP-STRIP MILL OPERATOR Primary Care Provider + Akil Figueroa MD Unavailable Source Comments [facility],non-owned Affiliates and Associated Physician Practices is amultiple site organization consisting of ambulatory clinics and hospital sitesin [place], [place], [place] and [place]. This disclosure is being madepursuant to the Care Everywhere program and may not contain all information available regarding this patient. Last updated 18.[facility] Allergies Active Allergy Reactions Criticality Noted Date Comments Cefaclor Rash,Urticaria High 04/26/2010 Contrast-Iodinated Agents For Ct/Other Skin Reactions,Anaphyl axis,Shortness of Breath High 04/26/2010 Sulfa Drugs Rash,Urticaria High 04/26/2010 Sulfamethoxazole W-Trimethoprim Rash Medium 04/27/2014 Tetanus Antitoxin Swelling Low 04/26/2010 Tetanus Toxoid Swelling Low 04/27/2014 Ketorolac Other 05/12/2023 Patient reports heart palpitations Medications * Be aware that medications may not be up to date on this document. Alwaysverify current medications with the patient. NebulizerIndicat ions:Mild intermittent asthma, unspecified whether complicated (HCC) Use as directed Nebulizer and supplies 1 Each 03/18/20 22 Active cetirizine (ZyrTEC) 10 MG tabletIndication s:Congestion of Upper Airway (Inactive) Take 1 (one) tablet by mouth at bedtime Reasons: Congestion of Upper Airway 90 tablet 4 09/04/20 22 Active Additional Information Patient not taking.Reason: Patient adjusted, Reported on 07/18/2025 tamsulosin (Flomax) 0.4 MG capsule Take 1 (one) capsule by mouth once daily At the same time every day after a meal. Active Acetaminophen (TYLENOL PO) Active sildenafil (Viagra) 50 MG tabletIndication s:Erectile Dysfunction Take 1 (one) tablet by mouth once daily as needed (before sex for a better erection) Reasons: Erectile Dysfunction 30 tablet 1 05/17/20 24 Active Additional Information Patient not taking.Reason: Patient adjusted, Reported on 07/18/2025 albuterol HFA (Proventil; Ventolin; Proair) 108 (90 Base) MCG/ACT inhalerIndicatio ns:Mild intermittent asthma, unspecified whether complicated (HCC) Inhale 2 (two) puffs by mouth every 4 hours as needed 54 g 07/18/20 25 Active albuterol-ipratr opium (Duo-Neb) 0.5-2.5 (3) MG/3ML nebulizer solutionIndicati ons:Asthma Inhale 3 mL by mouth every 6 hours as needed for Shortness of Breath or Wheezing Reasons: Asthma 360 mL 2 07/18/20 25 Active EPINEPHrine (Epipen) 0.3 MG/0.3ML auto-injector penIndications:A naphylaxis, initial encounter Inject 0.3 mL into muscle once as needed for Anaphylaxis 0.6 mL 1 07/18/20 25 Active fluticasone-salm eterol (Advair Diskus) 250-50 MCG/ACT inhalerIndicatio ns:Mild intermittent asthma, unspecified whether complicated (HCC) INHALE 1 DOSE BY MOUTH TWICE DAILY - IN THE MORNING AND EVENING APPROXIMATELY 12 HOURS APART 3 Each 2 07/18/20 25 Active meloxicam (Mobic) 7.5 MG tabletIndication s:Osteoarthritis Take 1 (one) tablet by mouth once daily Reasons: Joint Damage causing Pain and Loss of Function 90 tablet 1 07/18/20 25 Active montelukast (Singulair) 10 MG tabletIndication s:Asthma Take 1 (one) tablet by mouth once daily Reasons: Asthma 90 tablet 1 07/18/20 25 Active triamcinolone acetonide (Kenalog) 0.1 % creamIndications :Other eczema Apply to affected area 2 times daily 60 g 5 07/18/20 25 Active ciprofloxacin (Cipro) 500 MG tabletIndication s:Urinary tract infection with hematuria, site unspecified Take 1 (one) tablet by mouth 2 times daily 14 tablet 07/18/20 25 Active Spacer/Aero-Hold ing Chambers JAKE Active EPINEPHrine (Epipen) 0.3 MG/0.3ML auto-injector penIndications:A naphylaxis, initial encounter Inject 0.3 mL into muscle once as needed for Anaphylaxis 0.6 mL 1 04/10/20 23 025 Discontinu ed(Reorder ) IBUPROFEN PO Discontinu ed(List Clean-Up) albuterol-ipratr opium (Duo-Neb) 0.5-2.5 (3) MG/3ML nebulizer solutionIndicati ons:Asthma Inhale 3 mL by mouth every 6 hours as needed for Shortness of Breath or Wheezing Reasons: Asthma 360 mL 2 05/17/20 24 025 Discontinu ed(Reorder ) fluticasone-salm eterol (Advair Diskus) 250-50 MCG/ACT inhalerIndicatio ns:Mild intermittent asthma, unspecified whether complicated (HCC) INHALE 1 DOSE BY MOUTH TWICE DAILY - IN THE MORNING AND EVENING APPROXIMATELY 12 HOURS APART 3 Each 2 05/17/20 24 025 Discontinu ed(Reorder ) meloxicam (Mobic) 7.5 MG tabletIndication s:Osteoarthritis Take 1 (one) tablet by mouth once daily Reasons: Joint Damage causing Pain and Loss of Function 90 tablet 1 05/17/20 24 025 Discontinu ed(Reorder ) triamcinolone acetonide (Kenalog) 0.1 % cream Apply to affected area 2 times daily 60 g 5 05/17/20 24 025 Discontinu ed(Reorder ) ondansetron, disintegrating, (Zofran ODT) 4 MG tablet Take 1 (one) tablet by mouth every 6 hours as needed for Nausea/Vomiting Allow tablet to dissolve on the tongue 12 tablet 06/19/20 24 025 Discontinu ed(Tx Complete) cyclobenzaprine (Flexeril) 10 MG tabletIndication s:Muscle tension pain Take 1 tablet by mouth three times daily as needed for muscle spasm 60 tablet 10/28/20 24 025 Discontinu ed(Tx Complete) methylPREDNISolo ne (Medrol Dosepak) 4 MG tabletIndication s:Lower resp. tract infection Take by mouth as directed Take as directed by mouth per package instructions. 21 tablet 12/04/19 25 025 Discontinu ed(Tx Complete) azithromycin (Zithromax) 250 MG tabletIndication s:Lower resp. tract infection Take 2 tabs today, then 1 tab daily for next 4 days 6 tablet 12/04/19 25 025 Discontinu ed(Tx Complete) benzonatate (Tessalon Perles) 100 MG capsuleIndicatio ns:Lower resp. tract infection Take 1 (one) capsule by mouth 3 times daily as needed for Cough 30 capsule 12/04/19 25 025 Discontinu ed(Tx Complete) famotidine (Pepcid) 40 MG tabletIndication s:Gastroesophage al reflux disease without esophagitis TAKE 1 TABLET BY MOUTH ONCE DAILY AT BEDTIME 90 tablet 02/09/20 25 025 Discontinu ed(Tx Complete) montelukast (Singulair) 10 MG tabletIndication s:Mild intermittent asthma, unspecified whether complicated (HCC) Take 1 tablet by mouth once daily 90 tablet 05/12/20 25 025 Discontinu ed(Reorder ) albuterol HFA (Proventil; Ventolin; Proair) 108 (90 Base) MCG/ACT inhalerIndicatio ns:Mild intermittent asthma, unspecified whether complicated (HCC) Inhale 2 (two) puffs by mouth every 4 hours as needed 54 g 05/19/20 25 025 Discontinu ed(Reorder ) predniSONE (Deltasone) 50 MG tabletIndication s:Right elbow pain,Numbness and tingling Take 1 (one) tablet by mouth once daily for 5 days 5 tablet 07/18/20 25 025 Active Problems Problem Noted Date Diagnosed Date Acute cough 12/04/2024 Right shoulder pain 10/21/2024 Pneumothorax 08/23/2022 Warts, genital 06/23/2022 Overview (06/23/2022): X 6 on penis Essential hypertension 04/06/2020 Chest pain 04/06/2020 Asthma 04/27/2010 Hypokalemia 04/27/2010 Hypoxemia 04/27/2010 Leukocytosis 04/27/2010 Subcutaneous emphysema 04/27/2010 Tobacco abuse 04/27/2010 Preop examination Resolved Problems Problem Noted Date Diagnosed Date Resolved Date Acute exacerbation of chroni c obstructive pulmonary disease (COPD) 04/27/2010 02/10/2023 Encounters Date Type Department Care Team Description 08/09/2025 9:07 AM CDT - 08/09/2025 11:59 PM CDT Hospital Encounter [facility] - Cardiac Rehab [address] [place] [phone] Unknown, Provider Hospitalist Discharge Disposition: Home or Self Care 08/09/2025 9:03 AM CDT - 08/09/2025 9:06 AM CDT Hospital Encounter [facility] - Laboratory [address] [place] [phone] Leonard Mccallum MD Hoffmann, Sandra S, MD Unknown, Provider Discharge Disposition: Home or Self Care 07/30/2025 8:44 AM CDT - 07/30/2025 11:59 PM CDT Hospital Encounter [facility]-MRI [address] [place] [phone] Tawny Cooley APRN-CNP Discharge Disposition: Home or Self Care 07/30/2025 Orders Only [address] [phone] Tawny Cooley APRN-CNP Partial tear of common extensor tendon of right elbow ; Tendinopathy of elbow, right 07/30/2025 Results Follow-Up [address] [phone] Tawny Cooley APRN-CNP Results 07/24/[address] [phone] Tawny Cooley APRN-CNP Durable Medical Equipment 07/21/2025 Results Follow-Up [address] [place] [phone] Tawny Cooley APRN-CNP 07/18/2025 4:46 PM CDT - 07/18/2025 11:59 PM CDT Hospital Encounter [facility] - Laboratory [address] [place] [phone] Tawny Cooley APRN-CNP Discharge Disposition: Home or Self Care 07/18/2025 3:15 PM CDT Office Visit [address] [phone] Tawny Cooley APRN-CNP Mild intermittent asthma, unspecified whether complicated (HCC) (Primary Dx); Anaphylaxis, initial encounter; Osteoarthritis of sacroiliac joint; Osteoarthritis of both hips, unspecified osteoarthritis type; Essential hypertension; Right elbow pain; Numbness and tingling; Other eczema; Dysuria; Class 1 obesity without serious comorbidity with body mass index (BMI) of 30.0 to 30.9 in adult, unspecified obesity type; Screening for diabetes mellitus; Pain and swelling of right elbow; Recurrent kidney stones; Urinary tract infection with hematuria, site unspecified 05/19/[address] [phone] Tawny Cooley APRN-CNP Refill Request from Last 3 Months Immunizations Immunization Administration Dates Next Due Glyde primary monoval ent 12+ yr 0.3mL Purple cap 11/28/2021,05/29/2021,05/08/2021 INFLUENZA VACCINE, QUADR. (F LUZONE; FLULAVAL; FLUARIX; AFLURIA QUADRIVALENT; 6MO+), 0.5 ML (IIV4) 09/09/2021 Tetanus 05/07/2024 Family History Medical History Relation Name Comments Alzheimer's Disease Maternal Grandfather Parkinson's Disease Maternal Grandfather Alcohol abuse Maternal Grandmother Diabetes; unknown type Maternal Grandmother Asthma Mother Alcohol abuse Paternal Grandmother Relation Name Status Comments Maternal Grandfather Maternal Grandmother Mother Paternal Grandmother Social History Tobacco Use Types Packs/Day Years Used Date Smoking Tobacco: Every Day Cigarettes 0.3 39.7 Started: 1985 Smokeless Tobacco: Never Tobacco Cessation:Ready to Q uit: No; Counseling Given: No Comments:Smoke and vape very little Alcohol Use Standard Drinks/Week Comments Yes 2 [...] Date Recorded Patient Health Questionnaire-2 Score 0 07/18/2025 Sex and Gender Information Value Date Recorded Sex Assigned at Male 10/21/2024 11:57 AM SYSTEM SUPPORT ANALYST Legal Sex Male 5:38 AM SYSTEM SUPPORT ANALYST Gender Identity Male 10/21/2024 11:57 AM SYSTEM SUPPORT ANALYST Sexual Orientation Straight 10/21/2024 11 :57 AM SYSTEM SUPPORT ANALYST Last Filed Vital Signs Vital Sign Reading Time Taken Comments Blood Pressure 130/88 07/18/2025 3:27 PM CDT Pulse 89 07/18/2025 3:27 PM CDT Temperature 36.4 C (97.5 F) 07/18/2025 3:27 PM CDT Respiratory Rate 18 07/18/2025 3:27 PM CDT Oxygen Saturation 98% 07/18/2025 3:27 PM CDT Inhaled Oxygen Concentration 21% 08/13/2016 9 :35 PM CDT Weight 83.7 kg (184 lb 9.6 oz) 07/18/2025 3:27 P M CDT Height 165.1 cm (5' 5) 07/18/2025 3:27 PM CDT Body Mass Index 30.72 07/18/2025 3:27 PM CDT Plan of Treatment Upcoming Encounters Date Type Department Care Team ([facility] st Contact Info) Description 09/19/2025 8:45 AM CDT Office Visit [facility] [address] [place] [phone] Tawny Cooley APRN-NEENA [address] [place] [phone] 01/16/2026 2:45 PM SYSTEM SUPPORT ANALYST Office Visit [facility]- Family Medicine [address] [place] [phone] Tawny Cooley APRN-STRIP MILL OPERATOR [address] [place] [phone] Health Maintenance Due Date Last Done Comments COLOGUARD (AGES 45-75) - COLON CA SCREENING 1966 CT COLONOGRAPHY - COLON CA SCREENING 1966 FIT - COLON CA SCREENING 1966 FLEX SIG - COLON CA SCREENING 1966 PNEUMOCOCCAL VACCINE 50+ (1 of 2 - PCV) 1985 COVID-19 VACCINE (4 - 2024- season) 2025 11/28/2021, 05/29/2021, 05/08/2021 INFLUENZA VACCINE (#1) 2025 09/09/2021 ZOSTER VACCINE (1 of 2) 05/15/2026 Post poned from 2016 (Insurance Coverage) SCREENING FOR DIABETES 08/09/2028 , 08/09/2025, 06/19/2024, Additional history exists COLON MONITORING 04/03/2030 04/03/2020 COLONOSCOPY - COLON CA SCREENING 04/03/2030 04/03/2020 Colorectal Cancer Screening 04/03/2030 LIPID TESTING 08/09/2030 08/09/2025, 04/20, 03/31/2020, Additional history exists DTAP/TDAP/TD VACCINES Discontinued 05/07/2024 DEPRESSION SCREENING Completed 12/04/2024, 05/07/2024, 02/10/2023, Additional history exists HEPATITIS B VACCINE Discontinued HEPATITIS C SCREENING Discontinued HIB VACCINE Aged Out No longer eligi ble based on patient's age to complete this topic HIV SCREENING Discontinued HPV VACCINE Aged Out No longer eligi ble based on patient's age to complete this topic MENINGOCOCCAL (Group B) VACCINE SHARED DECISION-MAKING Aged Out No longer eligible based on patient's age to complete this topic MENINGOCOCCAL GROUPS A/C/Y/W VACCINE Aged Out No longer eligible based on patient's age to complete this topic Procedures Procedure Name Priority Date/Time Associated Diagnosis Comments LIPID PROFILE Routine 08/09/2025 10:11 AM CDT Essential hypertension VITAMIN B12 Routine 08/09/2025 10:11 AM CDT Numbness and tingling TSH Routine 08/09/2025 10:11 AM CDT Essential hypertension VITAMIN D 25-HYDROXY Routine 08/09/2025 10:11 AM CDT Class 1 obesity without serious comorbidity with body mass index (BMI) of 30.0 to 30.9 in adult, unspecified obesity type HEMOGLOBIN A1C Routine 08/09/2025 10:11 AM CDT Screening for diabetes mellitus COMPREHENSIVE METABOLIC PANEL Routine 08/09/2025 10:11 AM CDT Mild intermittent asthma, unspecified whether complicated (HCC) Anaphylaxis, initial encounter Osteoarthritis of sacroiliac joint Osteoarthritis of both hips, unspecified osteoarthritis type Essential hypertension Right elbow pain Numbness and tingling Other eczema Dysuria CBC W AUTO DIFFERENTIAL Routine 08/09/2025 10:11 AM CDT Mild intermittent asthma, unspecified whether complicated (HCC) Anaphylaxis, initial encounter Osteoarthritis of sacroiliac joint Osteoarthritis of both hips, unspecified osteoarthritis type Essential hypertension Right elbow pain Numbness and tingling Other eczema Dysuria URINE CULT RST RFLXED Routine 08/09/2025 10:11 AM CDT Uric acid nephrolithiasis CULTURE URINE Routine 08/09/2025 10:11 AM CDT Uric acid nephrolithiasis PT PTT PANEL Routine 08/09/2025 10:08 AM CDT Uric acid nephrolithiasis EKG 12-LEAD Routine 08/09/2025 9:24 AM CDT Preop examination Smoker MRI ELBOW RIGHT WO CONTRAST Routine 07/30/2025 9:26 AM CDT Right elbow pain Numbness and tingling Pain and swelling of right elbow URINALYSIS DIPSTICK - POINT OF CARE (AMB) [facility] Routine 07/18/2025 4:30 PM CDT Dysuria URINE CULT RST RFLXED Routine 07/18/2025 4:15 PM CDT Urinary tract infection with hematuria, site unspecified CULTURE URINE Routine 07/18/2025 4:15 PM CDT Urinary tract infection with hematuria, site unspecified from Last 3 Months Results * URINE CULT RST RFLXED (08/09/2025 10:11 AM CDT) Only the most recent of2 resultswithin the time period is included. Pathologist [facility] Result 1 No growth 08/12/2025 4:06 AM CDT [facility] ([facility]) Urine URINE SPECIMEN OBTAINED BY CLEAN CATCH PROCEDURE / Unknown Collection / Unknown 08/09/2025 10:11 AM CDT 08/09/2025 10:11 AM CDT Narrative [facility] ([facility]) - 08/12/2025 4:06 AM CDT Performed at: [address] [place] [id number] Shoe Cementer: Geovany Johnston PhD, Phone: [phone] us Akil Figueroa MD LAB - MICROBIOLOGY ORDERABLES Fi nal Result [facility] [address] [place] [address] * (ABNORMAL) HEMOGLOBIN A1C (08/09/2025 10:11 AM CDT) Hemoglobin A1c 5.9(H) 0.0 - 5.7 % 08/09/2025 11:38 AM CDT [facility] Estimated Average Glucose 122.63 mg/dL 08/09/2025 11:38 AM CDT [facility] Blood BLOOD SPECIMEN / Unknown Lab Venipuncture / Unknown 08/09/2025 10:11 AM CDT 08/09/2025 10:11 AM CDT Narrative [facility]) - 08/09/2025 11:38 AM CDT [employer] Suggested Interpretation: 5.7-6.4% Hemoglobin A1c = Prediabetes >6.5% Hemoglobin A1c = Consistent with Diabetes [employer] TAKE AWAY WORKER-STRIP MILL OPERATOR LAB - CHEMISTRY ORDERABL ES Final Result Performing Organization Address [facility]/ZIP Co de Phone Number [facility]) [address] [place] [address] * (ABNORMAL) VITAMIN D 25-HYDROXY (08/09/2025 10:11 AM CDT) Vitamin D, 25 Hydroxy 28(L) 30 - 100 ng/mL 08/09/2025 12:19 PM CDT [facility]) Blood BLOOD SPECIMEN / Unknown Lab Venipuncture / Unknown 08/09/2025 10:11 AM CDT 08/09/2025 10:11 AM CDT [employer] TAKE AWAY WORKER-[facility] LAB - CHEMISTRY ORDERABL ES Final Result Performing Organization Address [facility]/ZIP Co de Phone Number [facility]) [address] [place] [phone] * CULTURE URINE (08/09/2025 10:11 AM CDT) Only the most recent of2 resultswithin the time period is included. Urine Culture Routine Final report 08/12/2025 4:06 AM CDT [facility] ([facility]) Urine URINE SPECIMEN OBTAINED BY CLEAN CATCH PROCEDURE / Unknown Collection / Unknown 08/09/2025 10:11 AM CDT 08/09/2025 10:11 AM CDT Narrative [facility] ([facility]) - 08/12/2025 4:06 AM CDT Performed at: [address] [id number] Shoe Cementer: Geovany Johnston PhD, Phone: [phone] Akil Figueroa MD LAB - MICROBIOLOGY ORDERABLES Fi nal Result [facility] ([facility]) [address] [place] [address] * (ABNORMAL) CBC WITH DIFFERENTIAL (08/09/2025 10:[address] [facility]) WBC 7.5 4.0 - 10.0 K/uL 08/09/2025 11:17 AM T [facility] RBC 5.8(H) 4.2 - 5.7 M/ul 08/09/2025 11:17 AM T [facility] Hemoglobin 16.1 13.0 - 18.0 g/dL 08/09/2025 11:17 AM T [facility] Hematocrit 49.2 38.0 - 51.0 % 08/09/2025 11:17 AM T [facility]) MCV 84.5 82.0 - 98.0 fL 08/09/2025 11:17 AM T [facility] MCH 27.7 27.0 - 34.0 pg 08/09/2025 11:17 AM T [facility] MCHC 32.7 32.0 - 35.0 g/dL 08/09/2025 11:17 AM T [facility] RDW-CV 14.4 11.4 - 14.6 % 08/09/2025 11:17 AM T [facility] Platelet Count 353 120 - 410 K/uL 08/09/2025 11:17 AM T [facility] MPV 9.0 5.2 - 12.8 fL 08/09/2025 11:17 AM T [facility] Neutrophils % 60.5 25.0 - 78.0 % 08/09/2025 11:17 AM T [facility] Lymphocytes % 27.1 10.0 - 50.0 % 08/09/2025 11:17 AM T [facility] Monocytes % 7.8 0.0 - 11.0 % 08/09/2025 11:17 AM CDT [facility] Eosinophils % 4.0(H) 0.0 - 3.0 % 08/09/2025 11:17 AM CDT [facility] Basophils % 0.5 0.0 - 1.5 % 08/09/2025 11:17 AM CDT [facility] Neutrophil Absolute 4.5 2.0 - 6.9 K/uL 08/09/2025 11:17 AM CDT [facility] Lymphocyte Absolute 2.0 0.6 - 4.6 K/uL 08/09/2025 11:17 AM CDT [facility] Monocyte Absolute 0.6 0.0 - 0.9 K/uL 08/09/2025 11:17 AM CDT [facility] Eosinophil Absolute 0.3 0.0 - 0.7 K/uL 08/09/2025 11:17 AM T [facility] Basophil Absolute 0.0 0.0 - 0.2 K/uL 08/09/2025 11:17 AM T [facility] Immature Granulocytes % 0.1 0.0 - 0.5 % 08/09/2025 11:17 AM T [facility] Immature Granulocytes Absolute 0.01 0.00 - 0.03 K/UL 08/09/2025 11:17 AM T [facility] Blood BLOOD SPECIMEN / Unknown Lab Venipuncture / Unknown 08/09/2025 10:11 AM CDT 08/09/2025 10:11 AM CDT Tawny Cooley TAKE AWAY WORKER-STRIP MILL OPERATOR LAB - HEMATOLOGY ORDERAB LES Final Result [facility] [address] [place] [address] * (ABNORMAL) COMPREHENSIVE METABOLIC PANEL (08/09/2025 10:11 AM CDT) Sodium 141 137 - 145 mmol/L 08/09/2025 12:20 PM [facility] Potassium 4.2 3.6 - 5.0 mmol/L 08/09/2025 12:20 PM [facility] Chloride 106 98 - 107 mmol/L 08/09/2025 12:20 PM [facility] Carbon Dioxide 26 21 - 31 mmol/L 08/09/2025 12:20 PM [facility] Glucose 105(H) 75 - 100 mg/dL 08/09/2025 12:20 PM [facility] BUN 15 7 - 17 mg/dL 08/09/2025 12:20 PM [facility] Creatinine 1.00 0.66 - 1.25 mg/dL 08/09/2025 12:20 PM [facility] eGFR 76 >=60 ml/min/1.7 3*2 08/09/2025 12:20 PM [facility] Comment: Chronic kidney disease is defined as either the presence of kidney disease or a GFR of less than 60 ml/min/1.732 for 3 or more months and can be diagnosed without knowledge of its cause (NKF). Reference range in ml/min/1.732 For healthy adults > 60 Chronic Kidney Disease 15-60. GFR is not recommended for patients greater than 70 years. Reference ranges not available for patients under 18 yrs. Test will not be performed. BUN/Creatinine Ratio 15.2 6.0 - 26.0 08/09/2025 12:20 PM [facility] Calcium 9.8 8.4 - 10.7 mg/dL 08/09/2025 12:20 PM [facility] Protein Total 7.7 6.3 - 8.2 g/dL 08/09/2025 12:20 PM [facility] Albumin 4.4 3.9 - 5.0 g/dL 08/09/2025 12:20 PM [facility] Albumin/Globulin Ratio 1.3 1.1 - 2.2 g/dL 08/09/2025 12:20 PM CDT [facility] Bilirubin Total 0.5 0.2 - 1.3 mg/dL 08/09/2025 12:20 PM CDT [facility] Alkaline Phosphatase 107 38 - 126 U/L 08/09/2025 12:20 PM CDT [facility] AST 25 14 - 50 U/L 08/09/2025 12:20 PM CDT [facility] ALT 39 9 - 52 U/L 08/09/2025 12:20 PM CDT [facility] Blood BLOOD SPECIMEN / Unknown Lab Venipuncture / Unknown 08/09/2025 10:11 AM CDT 08/09/2025 10:11 AM CDT [employer] LAB - CHEMISTRY ORDERABL ES Final Result Performing Organization Address City/[facility]/ZIP Co de Phone Number [facility] [address] [place] [address] * VITAMIN B12 (08/09/2025 10:11 AM CDT) Pathologist [facility] Vitamin B12 396 232 - 1245 pg/mL 08/11/2025 12:07 PM CDT [facility] ([facility]) Blood BLOOD SPECIMEN / Unknown Lab Venipuncture / Unknown 08/09/2025 10:11 AM CDT 08/09/2025 10:11 AM CDT Narrative [facility] ([facility]) - 08/11/2025 12:07 PM CDT Performed at: - [facility] [id number] Shoe Cementer: Geovany Johnston PhD, Phone: [phone] [employer]-STRIP MILL OPERATOR LAB - CHEMISTRY ORDERABL ES Final Result [facility] ([facility]) [address] [place] [address] * TSH (08/09/2025 10:11 AM CDT) Pathologist [facility] TSH 0.989 0.465 - 4.680 mIU/mL 08/09/2025 12:20 PM CDT [facility] ([facility]) Blood BLOOD SPECIMEN / Unknown Lab Venipuncture / Unknown 08/09/2025 10:11 AM CDT 08/09/2025 10:11 AM CDT [employer] TAKE AWAY WORKER-STRIP MILL OPERATOR LAB - CHEMISTRY ORDERABL ES Final Result Performing Organization Address [facility] Co de Phone Number [facility] ([facility]) [address] [place] [address] * (ABNORMAL) LIPID PROFILE (08/09/2025 10:11 AM CDT) [facility] Cholesterol 215(H) 110 - 200 mg/dL 08/09/2025 12:20 PM CDT [facility] ([facility]) Triglycerides 144 40 - 150 mg/dL 08/09/2025 12:20 PM CDT [facility] ([facility]) HDL 39(L) 40 - 60 mg/dL 08/09/2025 12:20 PM CDT [facility] ([facility]) LDL Direct 135(H) 0 - 99 mg/dL 08/09/2025 12:20 PM CDT [facility] ([facility]) VLDL 29 0 - 40 mg/dL 08/09/2025 12:20 PM CDT [facility] ([facility]) CHOL/HDL RATIO 6.00(H) 0.00 - 4.98 08/09/2025 12:20 PM CDT [facility] ([facility]) Blood BLOOD SPECIMEN / Unknown Lab Venipuncture / Unknown 08/09/2025 10:11 AM CDT 08/09/2025 10:11 AM CDT [employer] TAKE AWAY WORKER-STRIP MILL OPERATOR LAB - CHEMISTRY ORDERABL ES Final Result Performing Organization Address [facility]/ZIP Co de Phone Number [facility] ([facility]) [address] [place] [address] * (ABNORMAL) PT PTT PANEL (08/09/2025 10:08 AM CDT) PT 10.1 9.2 - 11.0 sec 08/09/2025 11:39 AM CDT [facility] ([facility]) INR 0.97(L) 2 - 4 08/09/2025 11:39 AM CDT [facility] ([facility]) PTT 28.7 20.6 - 31.1 sec 08/09/2025 11:39 AM CDT [facility] ([facility]) Blood BLOOD SPECIMEN / Unknown Lab Venipuncture / Unknown 08/09/2025 10:08 AM CDT 08/09/2025 10:11 AM CDT [facility] ([facility]) - 08/09/2025 11:39 AM CDT Therapeutic Ranges: Prophylaxis, treatment of DVT, PE......... 2.0-3.0 Tissue Heart Valves ..................................... 2.0-3.0 Acute NV ...................................... 2.5-3.5 Valvular Heart Disease ..........................2.5-3.5 Atrial Fibrillation ............................2.5-3.5 Mechanical Heart Vlave .............2.5-3.5 For more Informations see CHEST Vol 119/1 Supp (2000) us Akil Figueroa MD LAB - COAGULATION ORDERABLES Fin al Result [facility] ([facility]) [address] [place] [address] * EKG 12-Lead (08/09/2025 9:24 AM CDT) us Ashu Brihgt MD ECG ORDERABLES Final Result [facility] * MRI Elbow Right Wo Contrast (07/30/2025 9:26 AM CDT) Anatomical Region Laterality Modality Upper Extremity Magnetic Resonan ce 07/30/2025 2:18 PM CDT Impressions 07/30/2025 2:38 PM CDT IMPRESSION: 1.Moderate right common extensor origin tendinopathy with a high-grade partial-thickness tear. 2.Mild right common flexor origin tendinopathy with a low-grade partial-thickness tear. > Interpreting Provider: Jude Lopez DO on 07/30/2025 2:38 PM Narrative 07/30/2025 2:38 PM CDT PROCEDURE: MRI ELBOW RIGHT WO CONTRAST, DATE/TIME OF EXAM: 07/30/2025 9:27 AM, LOCATION [facility] INDICATION: M25.521: Right elbow pain COMPARISON: None. TECHNIQUE: Multiplanar, multisequence MR examination of the right elbow was obtained without contrast. FINDINGS: The ulnar collateral, lateral ulnar collateral, annular, and radial collateral ligaments are normal. There is moderate common extensor origin tendinopathy with a low-grade partial-thickness tear. There is mild common flexor origin tendinopathy with a low-grade partial-thickness tear.. There is mild tricompartmental chondrosis. There is a physiologic amount of fluid within the elbow joint. No loose bodies are identified. The bone marrow signal is normal. The biceps and brachialis tendons and musculature are normal. There is no bicipitoradial bursitis. The muscular and tendinous insertions of the triceps are normal. There is no olecranon bursitis. The ulnar nerve is normal in course and morphology. The median and radial nerves are normal in course and morphology. Procedure Note Jude Lopez DO - 07/30/2025 PROCEDURE: MRI ELBOW RIGHT WO CONTRAST, DATE/TIME OF EXAM: 59:27 AM, LOCATION [facility] INDICATION: M25.521: Right elbow pain COMPARISON: None. TECHNIQUE: Multiplanar, multisequence MR examination of the right elbow was obtained without contrast. FINDINGS: The ulnar collateral, lateral ulnar collateral, annular, and radial collateral ligaments are normal. There is moderate common extensor origin tendinopathy with a low-grade partial-thickness tear. There is mild common flexor origin tendinopathy with a low-grade partial-thickness tear.. There is mild tricompartmental chondrosis. There is a physiologic amountof fluid within the elbow joint. No loose bodies are identified. The bone marrow signal is normal. The biceps and brachialis tendons and musculature are normal. There isno bicipitoradial bursitis. The muscular and tendinous insertions of the triceps are normal. There is no olecranon bursitis. The ulnar nerve is normal in course and morphology. The median andradial nerves are normal in course and morphology. IMPRESSION: 1.Moderate right common extensor origin tendinopathy with a high-grade partial-thickness tear. 2.Mild right common flexor origin tendinopathy with a low-grade partial-thickness tear. > Interpreting Provider: Jude Lopez DO on 07/30/2025 2:38 PM Tawny Cooley TAKE AWAY WORKER-STRIP MILL OPERATOR MR ORDERABLES Final Re sult * (ABNORMAL) URINALYSIS DIPSTICK - POINT OF CARE (AMB) [facility] (07/18/2025 4:30 PM CDT) Color UA Yellow Yellow, Natalia [facility] Clarity UA Clear Clear, Hazy [facility] Specific [place] UA 1.020 1.000, 1.005, 1.010, 1.015, 1.020, 1.025 [facility] pH UA 7.0 5.0, 5.5, 6.0, 6.5, 7.0, 7.5, 8.0, 8.5, 9.0 [facility] Protein UA Trace Negative, Trace [facility] Glucose UA Negative Negative [facility] Ketone UA Negative Negative [facility] Bilirubin UA Small(A) Negative [facility] Blood UA Moderate(A) Negative [facility] Leukocyte Esterase UA Small(A) Negative [facility] Nitrite UA Negative Negative [facility] Urobilinogen UA Negative 0.2 EU/dL, 1.0 EU/dL, Negative [facility] Urine URINE / Unknown 07/18/2025 4 :30 PM CDT Tawny Cooley TAKE AWAY WORKER-STRIP MILL OPERATOR LAB - POINT OF CARE TRACY JENOMAYRA Final Result [facility] [address] [place] [address], [facility] from Last 3 Months Insurance [facility] [facility] [employer] Advance Directives * Full Code (Latest Code Status on File) Date Activated Date Inactivated Comments 04/06/2020 9:13 PM 04/08/2020 5:33 PM Care Teams University Partnership Rep Relationship Specialty Start Date End Date Tawny Cooley APRN-STRIP MILL OPERATOR PCP - General Nurse Practitioner Family 04/24/20 Akil Figueroa MD [address] [facility] [address] [facility] [address] [place] [address] Urology 07/23/24
--- OUTSIDE RECORDS SUMMARY | 2025-08-15 01:01 | XMS_ITS | Encounter Summary ---
Author Organization [employer] Address [address] [place] [address] Care Team Providers Care Clinical Services Manager Name Role Phone Vazquez Mcleod MD Primary Care Provider [phone] Encounter Details Date Type Department Care Team (Late st Contact Info) Description 03/07/2000 Outpatient Historical [facility] Medicine [address] [place] [phone] [place] [address] [place] [address] Social History Tobacco Use Types Packs/Day Years Used Date Smoking Tobacco: Never Assessed Sex and Gender Information Value Date Recorded Sex Assigned at Not on file Legal Sex Male 12:36 AM COMMISSARY ASSISTANT Gender Identity Not on file Sexual Orientation Not on file documented as of this encounter Plan of Treatment Not on file documented as of this encounter Visit Diagnoses Not on filedocumented in this encounter Additional Health Concerns Infection Onset Date Last Indicated Resolved Time R/O Respiratory 12/18/2023 12/18/2023 12/18/2023 1 0:55 PM COMMISSARY ASSISTANT documented as of this encounter Care Teams Clinical Services Manager Relationship Specialty Start [place] [address] [place] [address] PCP - General 07/21/00 03/16/20 documented as of this encounter
--- OUTSIDE RECORDS SUMMARY | 2025-08-15 01:01 | XMS_ITS | Encounter Summary ---
Author Organization [employer] Address [address] [place] [address] Care Team Providers Care Automatic Pattern Edger Name Role Phone Vazquez Mcleod MD Primary Care Provider [phone] Encounter Details Date Type Department Care Team (Late st Contact Info) Description 07/18/2000 Outpatient Historical [facility] Medicine [address] [place] [phone] [place] [address] [place] [address] Social History Tobacco Use Types Packs/Day Years Used Date Smoking Tobacco: Never Assessed Sex and Gender Information Value Date Recorded Sex Assigned at Not on file Legal Sex Male 12:36 AM CD TECHNICIAN Gender Identity Not on file Sexual Orientation Not on file documented as of this encounter Plan of Treatment Not on file documented as of this encounter Visit Diagnoses Not on filedocumented in this encounter Additional Health Concerns Infection Onset Date Last Indicated Resolved Time R/O Respiratory 12/18/2023 12/18/2023 12/18/2023 1 0:55 PM CD TECHNICIAN documented as of this encounter Care Teams Automatic Pattern Edger Relationship Specialty Start [place] [address] [place] [address] PCP - General 07/21/00 03/16/20 documented as of this encounter
--- OUTSIDE RECORDS SUMMARY | 2025-08-15 01:01 | XMS_ITS | Encounter Summary ---
Author Organization [employer] Address [address] [place] [address] Care Team Providers Care Director Of Retail Merchandising Name Role Phone Vazquez Mcleod MD Primary Care Provider [phone] Encounter Details Date Type Department Care Team (Late st Contact Info) Description 05/16/2000 Outpatient Historical [facility] Medicine [address] [place] [phone] [place] [address] [place] [address] Social History Tobacco Use Types Packs/Day Years Used Date Smoking Tobacco: Never Assessed Sex and Gender Information Value Date Recorded Sex Assigned at Not on file Legal Sex Male 12:36 AM MENHADEN VESSEL PILOT Gender Identity Not on file Sexual Orientation Not on file documented as of this encounter Plan of Treatment Not on file documented as of this encounter Visit Diagnoses Not on filedocumented in this encounter Additional Health Concerns Infection Onset Date Last Indicated Resolved Time R/O Respiratory 12/18/2023 12/18/2023 12/18/2023 1 0:55 PM MENHADEN VESSEL PILOT documented as of this encounter Care Teams Director Of Retail Merchandising Relationship Specialty [place] [address] [place] [address] PCP - General 07/21/00 03/16/20 documented as of this encounter
--- OUTSIDE RECORDS SUMMARY | 2025-08-15 01:01 | XMS_ITS | Encounter Summary ---
Author Organization [facility] Address [address] [place] [address] Care Team Providers Care Center Machine Operator Name Role Phone Vazquez Mcleod MD Primary Care Provider Encounter Details Date Type Department Care Team (Latest Contact Info) Description 04/12/2001 Outpatient Historical [facility]A Hauser, Xavier Fall MD [address] [place] [address] Calculus of kidney (Primary Dx) Social History Tobacco Use Types Packs/Day Years Used Date Smoking Tobacco: Never Assessed Sex and Gender Information Value Date Recorded Sex Assigned at Not on file Legal Sex Male 12:36 AM DIRECTOR GOVERNMENT Gender Identity Not on file Sexual Orientation Not on file documented as of this encounter Plan of Treatment Not on file documented as of this encounter Visit Diagnoses Diagnosis Calculus of kidney- Primary documented in this encounter Additional Health Concerns Infection Onset Date Last Indicated Resolved Time R/O Respiratory 12/18/2023 12/18/2023 12/18/2023 1 0:55 PM DIRECTOR GOVERNMENT documented as of this encounter Care Teams Center Machine Operator Relationship Specialty Start [place] [address] [facility] [address] [place] [address] PCP - General 07/21/00 03/16/20 documented as of this encounter
--- OUTSIDE RECORDS SUMMARY | 2025-08-15 01:01 | XMS_ITS | Encounter Summary ---
Author Organization [email or web address] Address [address] [place] [address] Care Team Providers Care Floor Scraper Name Role Phone Vazquez Mcleod MD Primary Care Provider [phone] Encounter Details Date Type Department Care Team (Late st Contact Info) Description 02/10/2000 Outpatient Historical [facility] Medicine [address] [place] [phone] [place] [address] [place] [address] Social History Tobacco Use Types Packs/Day Years Used Date Smoking Tobacco: Never Assessed Sex and Gender Information Value Date Recorded Sex Assigned at Not on file Legal Sex Male 12:36 AM ORNAMENTAL IRON WORKER APPRENTICE Gender Identity Not on file Sexual Orientation Not on file documented as of this encounter Plan of Treatment Not on file documented as of this encounter Visit Diagnoses Not on filedocumented in this encounter Additional Health Concerns Infection Onset Date Last Indicated Resolved Time R/O Respiratory 12/18/2023 12/18/2023 12/18/2023 1 0:55 PM ORNAMENTAL IRON WORKER APPRENTICE documented as of this encounter Care Teams Floor Scraper Relationship Specialty Start [place] [address] [place] [address] PCP - General 07/21/00 03/16/20 documented as of this encounter
--- OUTSIDE RECORDS SUMMARY | 2025-08-15 01:01 | XMS_ITS | Encounter Summary ---
Author Organization [employer] Address [address] [place] [address] Care Team Providers Care Power Transformer Inspector Name Role Phone Vazquez Mcleod MD Primary Care Provider [phone] Encounter Details Date Type Department Care Team (Late st Contact Info) Description 05/31/2000 Outpatient Historical [facility] Medicine [address] [place] [phone] [place] [address] [place] [address] Social History Tobacco Use Types Packs/Day Years Used Date Smoking Tobacco: Never Assessed Sex and Gender Information Value Date Recorded Sex Assigned at Not on file Legal Sex Male 12:36 AM TECHNOLOGY DEVELOPMENT INTERN Gender Identity Not on file Sexual Orientation Not on file documented as of this encounter Plan of Treatment Not on file documented as of this encounter Visit Diagnoses Not on filedocumented in this encounter Additional Health Concerns Infection Onset Date Last Indicated Resolved Time R/O Respiratory 12/18/2023 12/18/2023 12/18/2023 1 0:55 PM TECHNOLOGY DEVELOPMENT INTERN documented as of this encounter Care Teams Power Transformer Inspector Relationship Specialty [place] [address] [place] [address] PCP - General 07/21/00 03/16/20 documented as of this encounter
--- OUTSIDE RECORDS SUMMARY | 2025-08-15 01:01 | XMS_ITS | Encounter Summary ---
Author Organization [facility] Address [address] [place] [address] Care Team Providers Care Manager Financial Name Role Phone Tawny Cooley Primary Care Provider + Akil Figueroa MD Unavailable Reason for Visit * Reason Onset Date Comments Results 07/30/2025 Encounter Details Date Type Department Care Team ([facility] Contact Info) Description 07/30/2025 Results Follow-Up [facility] Medicine [address] [place] [address] Tawny Cooley APRN-CNP [address] [place] [address] Results Social History Tobacco Use Types Packs/Day Years Used Date Smoking Tobacco: Every Day Cigarettes 0.3 39.7 Started: 1984 Smokeless Tobacco: Never Comments:Smoke and vape very little Alcohol Use [...] Sex Assigned at Male 10/21/2024 11:57 AM INSPECTOR EXPERIMENTAL ASSEMBLY Legal Sex Male 5:38 AM INSPECTOR EXPERIMENTAL ASSEMBLY Gender Identity Male 10/21/2024 11:57 AM INSPECTOR EXPERIMENTAL ASSEMBLY Sexual Orientation Straight 10/21/2024 11 :57 AM INSPECTOR EXPERIMENTAL ASSEMBLY documented as of this encounter Functional Status [...] Yamil Kirkland RN documented in this encounter Progress Notes * Tawny Cooley APRN-CNP - 07/31/2025 10:33 PM CDT May take him off work this week. Ok to wrie note. He can use a standard compression brace to see ifthis helps. If he would like a steroid injection the will be with ortho as it will likely be to thejoint. documented in this encounter Miscellaneous Notes * Telephone Encounter - Ilana Robles - 07/30/2025 4:23 PM CDT Luca has called the clinic today. He is calling in regards to the my chart message from Tawny today. Luca is asking if Tawny could take him off work the rest of this week. Luca would like to know why type of brace he should get. Luca would like to discuss the possibility of the steroid injection. # [phone] for Luca documented in this encounter Plan of Treatment Upcoming Encounters Date Type Department Care Team (Late st Contact Info) Description 09/19/2025 8:45 AM CDT Office Visit [address] [phone] Tawny Cooley OFFSET PLATEMAKER-ELECTRICAL INSTALLATION SUPERVISOR [address] [place] [address] 01/16/2026 2:45 PM INSPECTOR EXPERIMENTAL ASSEMBLY Office Visit [address] [address] Tawny Cooley APRN-ELECTRICAL INSTALLATION SUPERVISOR [address] [place] [phone] documented as of this encounter Visit Diagnoses Not on filedocumented in this encounter Care Teams Manager Financial Relationship Specialty Start Date End Date Tawny Cooley APRN-ELECTRICAL INSTALLATION SUPERVISOR PCP - General Nurse Practitioner Family 04/24/20 Akil Figueroa MD [address] [facility] [address] [facility] [address] [place] [address] Urology 07/23/24 documented as of this encounter
--- OUTSIDE RECORDS SUMMARY | 2025-08-15 01:01 | XMS_ITS | Encounter Summary ---
Author Organization [facility] Address [address] [place] [address] Care Team Providers Care Manager Travel Name Role Phone Tawny Cooley APRN-STUD SETTER Primary Care Provider + Akil Figueroa MD Unavailable Encounter Details Date Type Department Care Team ([facility] st Contact Info) Description 07/21/2025 Results Follow-Up [facility] Medicine [address] [place] [address] Tawny Cooley APRN-CNP [address] [place] [address] Social History Tobacco Use Types Packs/Day Years [...] Sex Assigned at Male 10/21/2024 11:57 AM EXECUTIVE ADMIN Legal Sex Male 5:38 AM EXECUTIVE ADMIN Gender Identity Male 10/21/2024 11:57 AM EXECUTIVE ADMIN Sexual Orientation Straight 10/21/2024 11 :57 AM EXECUTIVE ADMIN documented as of this encounter Functional Status * Is person deaf or have serious hearing difficulty? Answer Date of Assessment Author No 04/08/2020 4:06 PM Yamil Kirkland RN * Is person blind or have serious difficulty seeing? Answer Date of Assessment Author No 04/08/2020 4:06 PM Chasity Kirkland RN * Does person have serious [...] Description 09/19/2025 8:45 AM CDT Office Visit [address] [phone] Tawny Cooley APRN-CNP [address] [place] [phone] 01/16/2026 2:45 PM EXECUTIVE ADMIN Office Visit [address] [phone] Tawny Cooley APRN-CNP [address] [place] [phone] documented as of this encounter Visit Diagnoses Not on filedocumented in this encounter Care Teams Manager Travel Relationship Specialty Start Date End Date Tawny Cooley APRN-CNP PCP - General Nurse Practitioner Family 04/24/20 Akil Figueroa MD [address] [facility] [address] [facility] 200 [place] [address] Urology 07/23/24 documented as of this encounter
--- OUTSIDE RECORDS SUMMARY | 2025-08-15 01:01 | XMS_ITS | Encounter Summary ---
Author Organization [facility] Address [address] [place] [address] Care Team Providers Care Hanger Off Name Role Phone Tawny Cooley APRN-BROKE BEATER MACHINE OPERATOR Primary Care Provider + Akil Figueroa MD Unavailable Reason for Visit * Reason Onset Date Comments Durable Medical Equipment 07/24/2025 Encounter Details Date Type Department Care Team ([facility] st Contact Info) Description 07/24/2025 Telephone [facility] [address] [place] [address] Tawny Cooley APRN-CNP [address] [place] [address] Durable Medical Equipment Social History Tobacco Use Types Packs/Day Years [...] Sex Assigned at Male 10/21/2024 11:57 AM FURNITURE SHAMPOOER Legal Sex Male 5:38 AM FURNITURE SHAMPOOER Gender Identity Male 10/21/2024 11:57 AM FURNITURE SHAMPOOER Sexual Orientation Straight 10/21/2024 11 :57 AM FURNITURE SHAMPOOER documented as of this encounter Functional Status [...] 04/08/2020 4:06 PM SAVANAHT Yamil Franks RN documented as of this encounter Mental Status * Does person have difficulty concentrating/remembering/making decisions? Answer Entry Date Author No 04/08/2020 4:06 PM Yamil Kirkland RN documented in this encounter Miscellaneous Notes * Telephone Encounter - Delores Andres RN - 07/25/2025 5:10 PM CDT See previous message, please advise * Telephone Encounter - Gerri Martins - 07/24/2025 3:58 PM CDT Patient was told by his pharmacy that his PCP needs to place an order for a inhaler spacer. The onehe has has a crack in it. He would like to get this from [facility] in [place] or [facility] in [place] if unable to get from [facility]. documented in this encounter Plan of Treatment Upcoming Encounters Date Type Department Care Team (Late st Contact Info) Description 09/19/2025 8:45 AM CDT Office Visit [place] [address] [place] [phone] Tawny Cooley APRN-BROKE BEATER MACHINE OPERATOR [address] [place] [phone] 01/16/2026 2:45 PM FURNITURE SHAMPOOER Office Visit [address] [phone] Tawny Cooley APRN-NEENA [address] [place] [address] documented as of this encounter Visit Diagnoses Not on filedocumented in this encounter Care Teams Hanger Off Relationship Specialty Start Date End Date Tawny Cooley APRN-CNP PCP - General Nurse Practitioner Family 04/24/20 Akil Figueroa MD [address] [facility] [address] [place] [address] Urology 07/23/24 documented as of this encounter
--- OUTSIDE RECORDS SUMMARY | 2025-08-15 01:01 | XMS_ITS | Encounter Summary ---
Author Organization [employer] Address [address] [place] [address] Care Team Providers Care Deliverer Food Name Role Phone Vazquez Mcleod MD Primary Care Provider [phone] Encounter Details Date Type Department Care Team (Late st Contact Info) Description 02/17/2000 Outpatient Historical [facility] Medicine [address] [place] [phone] [place] [address] [place] [address] Social History Tobacco Use Types Packs/Day Years Used Date Smoking Tobacco: Never Assessed Sex and Gender Information Value Date Recorded Sex Assigned at Not on file Legal Sex Male 12:36 AM OPTICAL DESIGN ENGINEER Gender Identity Not on file Sexual Orientation Not on file documented as of this encounter Plan of Treatment Not on file documented as of this encounter Visit Diagnoses Not on filedocumented in this encounter Additional Health Concerns Infection Onset Date Last Indicated Resolved Time R/O Respiratory 12/18/2023 12/18/2023 12/18/2023 1 0:55 PM OPTICAL DESIGN ENGINEER documented as of this encounter Care Teams Deliverer Food Relationship Specialty [place] [address] [place] [address] PCP - General 07/21/00 03/16/20 documented as of this encounter
--- OUTSIDE RECORDS SUMMARY | 2025-08-15 01:01 | XMS_ITS | Encounter Summary ---
Author Organization [facility] Address [address] [place] [address] Care Team Providers Care Resident Director Name Role Phone Vazquez Mcleod MD Primary Care Provider [phone] Encounter Details Date Type Department Care Team (Late st Contact Info) Description 05/25/2000 Outpatient Historical [facility] Medicine [address] [place] [phone] [place] [address] [place] [address] Social History Tobacco Use Types Packs/Day Years Used Date Smoking Tobacco: Never Assessed Sex and Gender Information Value Date Recorded Sex Assigned at Not on file Legal Sex Male 12:36 AM APPRAISER PERSONAL PROPERTY Gender Identity Not on file Sexual Orientation Not on file documented as of this encounter Plan of Treatment Not on file documented as of this encounter Visit Diagnoses Not on filedocumented in this encounter Additional Health Concerns Infection Onset Date Last Indicated Resolved Time R/O Respiratory 12/18/2023 12/18/2023 12/18/2023 1 0:55 PM APPRAISER PERSONAL PROPERTY documented as of this encounter Care Teams Resident Director Relationship Specialty Start [place] [address] [place] [address] PCP - General 07/21/00 03/16/20 documented as of this encounter
--- OUTSIDE RECORDS SUMMARY | 2025-08-15 01:01 | XMS_ITS | Encounter Summary ---
Author Organization [facility] Address [address] [place] [address] Care Team Providers Care Line Maintenance Supervisor Name Role Phone Vazquez Mcleod MD Primary Care Provider Encounter Details Date Type Department Care Team (Latest Contact Info) Description 03/08/2000 Outpatient Historical [facility],[place] [address] [place] [address] Calculus of kidney (Primary Dx) Social History Tobacco Use Types Packs/Day Years Used Date Smoking Tobacco: Never Assessed Sex and Gender Information Value Date Recorded Sex Assigned at Not on file Legal Sex Male 12:36 AM UNIVERSITY RELATIONS RECRUITER Gender Identity Not on file Sexual Orientation Not on file documented as of this encounter Plan of Treatment Not on file documented as of this encounter Visit Diagnoses Diagnosis Calculus of kidney- Primary documented in this encounter Additional Health Concerns Infection Onset Date Last Indicated Resolved Time R/O Respiratory 12/18/2023 12/18/2023 12/18/2023 1 0:55 PM UNIVERSITY RELATIONS RECRUITER documented as of this encounter Care Teams Line Maintenance Supervisor Relationship Specialty Start [place] [address] [place] [address] PCP - General 07/21/00 03/16/20 documented as of this encounter
--- OUTSIDE RECORDS SUMMARY | 2025-08-15 01:01 | XMS_ITS | Encounter Summary ---
Author Organization [employer] Address [address] [place] [address] Care Team Providers Care Legal Aid Name Role Phone Vazquez Mcleod MD Primary Care Provider Encounter Details Date Type Department Care Team (Late st Contact Info) Description 03/17/2000 Outpatient Historical [facility] [place] [address] [place] [address] Abdominal pain, unspecified site (Primary Dx) Social History Tobacco Use Types Packs/Day Years Used Date Smoking Tobacco: Never Assessed Sex and Gender Information Value Date Recorded Sex Assigned at Not on file Legal Sex Male 12:36 AM EMPLOYMENT RECRUITER Gender Identity Not on file Sexual Orientation Not on file documented as of this encounter Plan of Treatment Not on file documented as of this encounter Visit Diagnoses Diagnosis Abdominal pain, unspecified site- Primary documented in this encounter Additional Health Concerns Infection Onset Date Last Indicated Resolved Time R/O Respiratory 12/18/2023 12/18/2023 12/18/2023 1 0:55 PM EMPLOYMENT RECRUITER documented as of this encounter Care Teams Legal Aid Relationship Specialty [place] [address] [place] [address] PCP - General 07/21/00 03/16/20 documented as of this encounter
--- OUTSIDE RECORDS SUMMARY | 2025-08-15 01:01 | XMS_ITS | Encounter Summary ---
Author Organization [facility] Address [address] [place] [address] Care Team Providers Care Recreation Therapy Director Name Role Phone Vazquez Mcleod MD Primary Care Provider [phone] Encounter Details Date Type Department Care Team (Late st Contact Info) Description 02/09/2000 Emergency [facility] Joe Castro MD NO ADDRESS ON FILE Er, Authorized P NO ADDRESS ON FILE Unspecified asthma(493.90) (Primary Dx) Social History Tobacco Use Types Packs/Day Years Used Date Smoking Tobacco: Never Assessed Sex and Gender Information Value Date Recorded Sex Assigned at Not on file Legal Sex Male 12:36 AM METAL CLEANER Gender Identity Not on file Sexual Orientation Not on file documented as of this encounter Plan of Treatment Not on file documented as of this encounter Visit Diagnoses Diagnosis Unspecified asthma(493.90)- Primary Unspecified asthma documented in this encounter Additional Health Concerns Infection Onset Date Last Indicated Resolved Time R/O Respiratory 12/18/2023 12/18/2023 12/18/2023 1 0:55 PM METAL CLEANER documented as of this encounter Care Teams Recreation Therapy Director Relationship Specialty [place] [address] [facility] [address] [place] [phone] PCP - General 07/21/00 03/16/20 documented as of this encounter
--- OUTSIDE RECORDS SUMMARY | 2025-08-15 01:01 | XMS_ITS | Encounter Summary ---
Author Organization [employer] Address [address] [place] [address] Care Team Providers Care Director Loan Name Role Phone Vazquez Mcleod MD Primary Care Provider [phone] Encounter Details Date Type Department Care Team (Late st Contact Info) Description 04/06/2001 Outpatient Historical [facility] Medicine [address] [place] [phone] [place] [address] [place] [address] Social History Tobacco Use Types Packs/Day Years Used Date Smoking Tobacco: Never Assessed Sex and Gender Information Value Date Recorded Sex Assigned at Not on file Legal Sex Male 12:36 AM RN BARIATRIC Gender Identity Not on file Sexual Orientation Not on file documented as of this encounter Plan of Treatment Not on file documented as of this encounter Visit Diagnoses Not on filedocumented in this encounter Additional Health Concerns Infection Onset Date Last Indicated Resolved Time R/O Respiratory 12/18/2023 12/18/2023 12/18/2023 1 0:55 PM RN BARIATRIC documented as of this encounter Care Teams Director Loan Relationship Specialty [place] [address] [place] [address] PCP - General 07/21/00 03/16/20 documented as of this encounter
--- OUTSIDE RECORDS SUMMARY | 2025-08-15 01:01 | XMS_ITS | Encounter Summary ---
Author Organization [employer] Address [address] [place] [address] Care Team Providers Care Assistant Food Service Manager Name Role Phone Vazquez Mcleod MD Primary Care Provider Encounter Details Date Type Department Care Team (Late st Contact Info) Description 09/26/2000 Emergency [facility] Monica Arana MD [address] [place] [address] [place] [address] Er, Authorized P NO ADDRESS ON FILE Renal colic (Primary Dx) Social History Tobacco Use Types Packs/Day Years Used Date Smoking Tobacco: Never Assessed Sex and Gender Information Value Date Recorded Sex Assigned at Not on file Legal Sex Male 12:36 AM UTILITY LINEMAN Gender Identity Not on file Sexual Orientation Not on file documented as of this encounter Plan of Treatment Not on file documented as of this encounter Visit Diagnoses Diagnosis Renal colic- Primary documented in this encounter Additional Health Concerns Infection Onset Date Last Indicated Resolved Time R/O Respiratory 12/18/2023 12/18/2023 12/18/2023 1 0:55 PM UTILITY LINEMAN documented as of this encounter Care Teams Assistant Food Service Manager Relationship Specialty [place] [address] [place] [address] PCP - General 07/21/00 03/16/20 documented as of this encounter
--- OUTSIDE RECORDS SUMMARY | 2025-08-15 01:01 | XMS_ITS | Encounter Summary ---
Author Organization [employer] Address [address] [place] [address] Care Team Providers Care Veterinary Practice Manager Name Role Phone Vazquez Mcleod MD Primary Care Provider Encounter Details Date Type Department Care Team (Late st Contact Info) Description 07/21/2000 Outpatient Historical [facility] MRI DEPT Helio Lopez MD [address] PED ALLERGY/IMMUNO/PULM O [place], [place] [id number] Unspecified sinusitis (chronic) (Primary Dx) Social History Tobacco Use Types Packs/Day Years Used Date Smoking Tobacco: Never Assessed Sex and Gender Information Value Date Recorded Sex Assigned at Not on file Legal Sex Male 12:36 AM NAVY AIRSPACE OFFICER Gender Identity Not on file Sexual Orientation Not on file documented as of this encounter Plan of Treatment Not on file documented as of this encounter Visit Diagnoses Diagnosis Unspecified sinusitis (chronic)- Primary documented in this encounter Additional Health Concerns Infection Onset Date Last Indicated Resolved Time R/O Respiratory 12/18/2023 12/18/2023 12/18/2023 1 0:55 PM NAVY AIRSPACE OFFICER documented as of this encounter Care Teams Veterinary Practice Manager Relationship Specialty Start [place] [address] [facility] [address] [place] [phone] PCP - General 07/21/00 03/16/20 documented as of this encounter
--- OUTSIDE RECORDS SUMMARY | 2025-08-15 01:01 | XMS_ITS | Encounter Summary ---
Author Organization [facility] Address [address] [place] [address] Care Team Providers Care Rehabilitation Services Aide Name Role Phone Ligiaeugenia Tawny KNAPP-BLADE OPERATOR Primary Care Provider + Akil Figueroa MD Unavailable Encounter Details Date Type Department Care Team ([facility] st Contact Info) Description 08/19/2022 Op/Procedure Report External [facility] [address] [place] [phone] Document, Scanned Social History Tobacco Use Types [...] Sex Assigned at Male 10/21/2024 11:57 AM AIR DEFENCE OFFICER Legal Sex Male 5:38 AM AIR DEFENCE OFFICER Gender Identity Male 10/21/2024 11:57 AM AIR DEFENCE OFFICER Sexual Orientation Straight 10/21/2024 11 :57 AM AIR DEFENCE OFFICER COVID-19 Exposure Response Date Recorded In the [...] Description 09/19/2025 8:45 AM CDT Office Visit [address] [phone] Tawny Cooley APRN-CNP [address] [place] [phone] 01/16/2026 2:45 PM AIR DEFENCE OFFICER Office Visit [address] [phone] Tawny Cooley APRN-CNP [address] [place] [phone] documented as of this encounter Visit Diagnoses Not on filedocumented in this encounter Additional Health Concerns Infection Onset Date Last Indicated Resolved Time COVID-19 Under Investigation 12/04/2024 12/04/2024 12/04/2024 2:14 PM AIR DEFENCE OFFICER documented as of this encounter Care Teams Rehabilitation Services Aide Relationship Specialty Start Date End Date Tawny Cooley APRN-NEENA PCP - General Nurse Practitioner Family 04/24/20 Akil Figueroa MD [address] [facility] [address] [facility] [address] [place] [address] Urology 07/23/24 documented as of this encounter
--- OUTSIDE RECORDS SUMMARY | 2025-08-15 01:01 | XMS_ITS | Encounter Summary ---
Author Organization [employer] Address [address] [place] [address] Care Team Providers Care Identification And Records Commander Name Role Phone Vazquez Mcleod MD Primary Care Provider [phone] Encounter Details Date Type Department Care Team (Late st Contact Info) Description 05/29/2000 Outpatient Historical [facility] Medicine [address] [place] [phone] [place] [address] [place] [address] Social History Tobacco Use Types Packs/Day Years Used Date Smoking Tobacco: Never Assessed Sex and Gender Information Value Date Recorded Sex Assigned at Not on file Legal Sex Male 12:36 AM GRADUATE STUDENT INSTRUCTOR Gender Identity Not on file Sexual Orientation Not on file documented as of this encounter Plan of Treatment Not on file documented as of this encounter Visit Diagnoses Not on filedocumented in this encounter Additional Health Concerns Infection Onset Date Last Indicated Resolved Time R/O Respiratory 12/18/2023 12/18/2023 12/18/2023 1 0:55 PM GRADUATE STUDENT INSTRUCTOR documented as of this encounter Care Teams Identification And Records Commander Relationship Specialty Start [place] [address] [place] [address] PCP - General 07/21/00 03/16/20 documented as of this encounter
--- NOTE | 2025-08-15 06:33 | WPDHPUPDATE1 ---
History and Physical Update Update Date/Time: 08/15/25 06:33 History and Physical has been reviewed, including an updated exam of the patient. There are NO changes in the patient's condition. Risks, benefits, and alternatives have been discussed and questions answered. Patient agrees to proceed with procedure.
--- NOTE | 2025-08-15 08:53 | WPDANESEPPF ---
Anes - Initial Pre Proc Eval Procedure: Operation Date: 08/15/25 10:30 Proposed Procedures p Right Extracorporeal Shock Wave Lithotripsy - Holden Figueroa MD s Cystoscopy with Right Ureteral Stent Placement - Holden Figueroa MD Date/Time: 08/15/25 08:53 Surgeon: Holden Figueroa MD Pre Op Diagnosis: Right renal stone Patient Data Age: 60 Gender: M Height: 1.65 m Weight: 81.8 kg Allergies Allergy/AdvReac Type Severity Reaction Status Date / Time Iodinated Contrast Media Allergy Severe Anaphylactic Verified 08/08/25 08:16 Shock Sulfa (Sulfonamide Allergy Severe Hives Verified 08/08/25 08:16 Antibiotics) tetanus and diphtheria Allergy Severe Swelling Verified 08/08/25 08:16 toxoids Home Medications ?Medication ?Instructions ?Recorded ?Confirmed ?Type albuterol sulfate 90 mcg/actuation 2 inh inhalation [id number] PRN 06/20/24 08/08/25 History aerosol inhaler Dyspnea fluticasone 250 mcg-salmeterol 50 1 inh inhalation BID 06/20/24 08/08/25 History mcg/dose blistr powdr for inhalation meloxicam 7.5 mg tablet 7.5 mg PO DAILY PRN Pain 06/20/24 08/08/25 History montelukast 10 mg tablet 10 mg PO HS 06/20/24 08/08/25 History tamsulosin 0.4 mg capsule 0.4 mg PO HS 06/20/24 08/08/25 History Patient hx anesthesia problems: none Family hx anesthesia problems: none Results Review: All pre-operative results and documents have been reviewed as part of the pre-operative evaluation. [facility] Past Medical History Medical History (Updated 08/15/25 @ 08:54 by Ashu Bright MD) COPD (chronic obstructive pulmonary disease) Obesity History of renal stone Surgical History Surgical History (Updated 08/15/25 @ 08:59 by Ashu Bright MD) H/O nasal septoplasty H/O lithotripsy Social History Social History Smoking packs per day: 1.5 Smoking cigarettes per day: 30.0 Years smoked: 40 Smoking pack-years: 60.00 Smoking status: Current every day smoker Tobacco type: cigarettes Smoking end date: 06/17/24 Additional smoking assessment comments: Down to 1/2 pack a day, trying to quit. Alcohol intake: current Living arrangements: with family Spiritual care concerns: No Anes - Eval Final PreProcedure Day of Procedure 08/15/25 08:53 Patient weight: obese Heart: regular rate and rhythm Lungs: clear to auscultation Airway: Mallampati scale class II Neurological: alert and oriented Last oral intake: >/= 8 hours ASA classification: III Emergent: no Anesthetic plan: proceed Anesthesia type and monitoring: general LMA and standard monitoring Results Review: All pre-operative results and documents have been reviewed as part of the pre-operative evaluation. Informed Consent: The patient's anesthetic plan and its attendant risks and benefits were discussed with the patient/family/POA. Questions were solicited and answers provided to the satisfaction of the patient/family/POA.
[2025-08-15] MEDS: LACTATED RINGERS 1,000 ML 30 ML IV CONT (09:15)
[2025-08-15] MEDS: ceFAZolin 2 GM in SODIUM CHLORIDE 0.9% IV 50 ML 100 ML IVPB (10:21)
--- NOTE | 2025-08-15 11:15 | W.PM.PROC2 ---
Procedure Note - Detailed Date of Procedure 08/15/25 Pre-op Diagnosis Right renal stones Post-op Diagnosis Same Procedure Performed cystoscopy, right ureteral stent placement, right ESWL Surgeon Holden Figueroa MD Anesthesia General Description of Procedure Patient brought the operative suite was prepped draped in routine sterile fashion while supine position after the uneventful induction of a general LMA anesthetic. Cystoscopy was undertaken with a 16 F flexible cystoscope. There was no urethral stricture with a 1.5 cm prostatic urethra. The bladder was endoscopically normal. A 0.035 in glidewire was advanced to his right renal pelvis and a 4.8 F which stent is appropriately position. Lithotripsy was 1st undertaken to his larger stone in the right upper pole. It is quite hard and we opted to using an entire 2500 shocks on that larger upper pole stone. There was a smaller 6-7 mm stone in the mid pole which we did not treat. Patient tolerated the procedure well was taken to the recovery room good condition.
[2025-08-15] MEDS: fentaNYL CITRATE INJ (*CRX) 100 MCG/2 ML VIAL 25 MCG IV PUSH ×2 (11:43→11:45)
[2025-08-15] MEDS: oxyCODONE HCL (*CRX) 5 MG TAB IR PO (12:39)
--- NOTE | 2025-08-15 12:56 | SUR.PHASEII ---
1250 DR[address] LOVE CALLED RE: PATIENT'S ELEVATED BP 170-186/101-113. HYDRALAZINE ORDERED AND GIVEN. WILL MONITOR X 20 MIN.
--- NOTE | 2025-08-15 13:09 | SUR.PHASEII ---
PATIENT IS URINATING FREQUENTLY SMALL AMOUNTS. C/O'S BURNING; URINE PINK; NO CLOTS.
--- NOTE | 2025-08-15 13:30 | SUR.PHASEII ---
BP 20 MINUTES AFTER HYDRALAZINE IS 156/89. DISCHARGED HOME AND ENCOURAGED TO CHECK IN WITH HIS PMD RE: BP.
== END 2025-08-15 13:30 | disposition home or self-care (01) ==
PROVIDERS: Visit Provider Urology
PROC: (CPT 50590; principal; 2025-08-15 10:30)
PROC: (CPT 52352; 2025-08-15 10:30)
DX: N20.0 Calculus of kidney (principal); J44.9 Chronic obstructive pulmonary disease, unspecified; F17.210 Nicotine dependence, cigarettes, uncomplicated; E66.9 Obesity, unspecified; Z68.30 Body mass index [BMI] 30.0-30.9, adult; Z79.51 Long term (current) use of inhaled steroids; Z98.890 Other specified postprocedural states
CPT/HCPCS: 52332; 50590; 74018; J0690; A9270; C1758; C1769; C2617; J0360; J1100; J2003; J2250; J2405; J2704; J3010; J7120

== ENCOUNTER 2025-08-18 10:46 | Emergency (ER) | payer OTHER, SELFPAY ==
--- NOTE | ~2025-08-18 | CT_ITS ---
CT ABDOMEN AND PELVIS WITHOUT CONTRAST Clinical History: flank pain, abd pain, dysuria Comparison: Recent x-rays Technique: Unenhanced axial images lung bases to symphysis pubis Coronal, sagittal reformats CT images acquired with automatic exposure control for dose reduction DLP: 265 mGy-cm Findings: Without intravenous contrast, sensitivity for detecting visceral parenchymal abnormalities decreased. Lung bases: Clear. Visualized heart and pericardium: Unremarkable. Liver: Unremarkable. Gallbladder: Unremarkable. Spleen: Unremarkable. Pancreas: Unremarkable. Adrenal glands: Unremarkable. Kidneys: Right [id number]-[id number]-S ureteral stent in place. Mild periureteral stranding. No hydronephrosis. A few stones, largest 13 mm. Partially exophytic hyperdense cyst. Left kidney- No hydronephrosis. Several stones. Partially exophytic cortical cyst. Distal esophagus/stomach: Unremarkable. Small bowel loops: Normal caliber and wall thickness. Colon: Diverticula. Normal caliber and wall thickness. Normal RLQ appendix. Nodes: No enlarged nodes. Peritoneum: No ascites. No free intraperitoneal air. Urinary bladder: Unremarkable. Prostate: Unremarkable. Bones: No acute bony abnormality. Soft tissues: Unremarkable. Unopacified abdominal aorta: No aneurysmal dilatation. IMPRESSION: 1. Right kidney double-J ureteral stent in place. No hydronephrosis. 2. Bilateral nephrolithiasis. Reviewed, dictated and finalized at location R.
--- NOTE | ~2025-08-18 | XR_ITS ---
Abdominal radiograph(s) INDICATION: Kidney stone COMPARISON: X-rays 3 days prior TECHNIQUE: 3 views supine AP abdomen FINDINGS: Right double-J ureteral stent in place. Bilateral renal stones remain. No ureteral stones identified. Scattered colonic stool. Small scattered small bowel gas. No acute bony abnormality. Lung bases clear. IMPRESSION: 1. Right double-J ureteral stent in place. 2. Bilateral renal stones persist. Reviewed, dictated and finalized at location R.
[2025-08-18 10:52] VITALS: BP 163/89; PULSE 88; RESP 20; TEMP 36.4; O2SAT 95
--- OUTSIDE RECORDS SUMMARY | 2025-08-18 11:25 | XMS_ITS | Encounter Summary ---
Author Organization [employer] Address [address] [place] [address] Care Team Providers Care High Lighter Name Role Phone Vazquez Mcleod MD Primary Care Provider [phone] Encounter Details Date Type Department Care Team (Late st Contact Info) Description 07/18/2000 Outpatient Historical [facility] Medicine [address] [place] [phone] [place] [address] [place] [address] Social History Tobacco Use Types Packs/Day Years Used Date Smoking Tobacco: Never Assessed Sex and Gender Information Value Date Recorded Sex Assigned at Not on file Legal Sex Male 12:36 AM BUTADIENE CONVERTOR OPERATOR Gender Identity Not on file Sexual Orientation Not on file documented as of this encounter Plan of Treatment Not on file documented as of this encounter Visit Diagnoses Not on filedocumented in this encounter Additional Health Concerns Infection Onset Date Last Indicated Resolved Time R/O Respiratory 12/18/2023 12/18/2023 12/18/2023 1 0:55 PM BUTADIENE CONVERTOR OPERATOR documented as of this encounter Care Teams High Lighter Relationship Specialty Start [place] [address] [place] [address] PCP - General 07/21/00 03/16/20 documented as of this encounter
--- OUTSIDE RECORDS SUMMARY | 2025-08-18 11:25 | XMS_ITS | Encounter Summary ---
Author Organization [employer] Address [address] [place] [address] Care Team Providers Care Heeler Machine Name Role Phone Vazquez Mcleod MD Primary Care Provider Encounter Details Date Type Department Care Team (Late st Contact Info) Description 07/21/2000 Outpatient Historical [facility] MRI DEPT Helio Lopez MD [address] DIV PED ALLERGY/IMMUNO/PULM O [place], [place] [id number] Unspecified sinusitis (chronic) (Primary Dx) Social History Tobacco Use Types Packs/Day Years Used Date Smoking Tobacco: Never Assessed Sex and Gender Information Value Date Recorded Sex Assigned at Not on file Legal Sex Male 12:36 AM LICENSED VOCATIONAL NURSE Gender Identity Not on file Sexual Orientation Not on file documented as of this encounter Plan of Treatment Not on file documented as of this encounter Visit Diagnoses Diagnosis Unspecified sinusitis (chronic)- Primary documented in this encounter Additional Health Concerns Infection Onset Date Last Indicated Resolved Time R/O Respiratory 12/18/2023 12/18/2023 12/18/2023 1 0:55 PM LICENSED VOCATIONAL NURSE documented as of this encounter Care Teams Heeler Machine Relationship Specialty [place] [address] [facility] [address] [place] [phone] PCP - General 07/21/00 03/16/20 documented as of this encounter
--- OUTSIDE RECORDS SUMMARY | 2025-08-18 11:25 | XMS_ITS | Encounter Summary ---
Author Organization [employer] Address [address] [place] [address] Care Team Providers Care Meals On Wheels Driver Name Role Phone Vazquez Mcleod MD Primary Care Provider [phone] Encounter Details Date Type Department Care Team (Late st Contact Info) Description 04/06/2001 Outpatient Historical [facility] Medicine [address] [place] [phone] [place] [address] [place] [address] Social History Tobacco Use Types Packs/Day Years Used Date Smoking Tobacco: Never Assessed Sex and Gender Information Value Date Recorded Sex Assigned at Not on file Legal Sex Male 12:36 AM PUNCH FINISHER Gender Identity Not on file Sexual Orientation Not on file documented as of this encounter Plan of Treatment Not on file documented as of this encounter Visit Diagnoses Not on filedocumented in this encounter Additional Health Concerns Infection Onset Date Last Indicated Resolved Time R/O Respiratory 12/18/2023 12/18/2023 12/18/2023 1 0:55 PM PUNCH FINISHER documented as of this encounter Care Teams Meals On Wheels Driver Relationship Specialty Start [place] [address] [place] [address] PCP - General 07/21/00 03/16/20 documented as of this encounter
--- OUTSIDE RECORDS SUMMARY | 2025-08-18 11:25 | XMS_ITS | Encounter Summary ---
Author Organization [employer] Address [address] [place] [address] Care Team Providers Care Case Manager Name Role Phone Vazquez Mcleod MD Primary Care Provider [phone] Encounter Details Date Type Department Care Team (Late st Contact Info) Description 06/03/1999 Outpatient Historical [facility] Medicine [address] [place] [phone] [place] [address] [place] [address] Social History Tobacco Use Types Packs/Day Years Used Date Smoking Tobacco: Never Assessed Sex and Gender Information Value Date Recorded Sex Assigned at Not on file Legal Sex Male 12:36 AM TAX ADVISOR Gender Identity Not on file Sexual Orientation Not on file documented as of this encounter Plan of Treatment Not on file documented as of this encounter Visit Diagnoses Not on filedocumented in this encounter Additional Health Concerns Infection Onset Date Last Indicated Resolved Time R/O Respiratory 12/18/2023 12/18/2023 12/18/2023 1 0:55 PM TAX ADVISOR documented as of this encounter Care Teams Case Manager Relationship Specialty Start [place] [address] [place] [address] PCP - General 07/21/00 03/16/20 documented as of this encounter
--- OUTSIDE RECORDS SUMMARY | 2025-08-18 11:25 | XMS_ITS | Encounter Summary ---
Author Organization [employer] Address [address] [place] [address] Care Team Providers Care Deposit Refund Clerk Name Role Phone Vazquez Mcleod MD Primary Care Provider Encounter Details Date Type Department Care Team (Late st Contact Info) Description 06/13/2001 Emergency [facility] Matti Hernández MD [facility] [place] [address] Er, Authorized P NO ADDRESS ON FILE Urethritis, unspecified (Primary Dx) Social History Tobacco Use Types Packs/Day Years Used Date Smoking Tobacco: Never Assessed Sex and Gender Information Value Date Recorded Sex Assigned at Not on file Legal Sex Male 12:36 AM INJECTION WAX MOLDER Gender Identity Not on file Sexual Orientation Not on file documented as of this encounter Plan of Treatment Not on file documented as of this encounter Visit Diagnoses Diagnosis Urethritis, unspecified- Primary documented in this encounter Additional Health Concerns Infection Onset Date Last Indicated Resolved Time R/O Respiratory 12/18/2023 12/18/2023 12/18/2023 1 0:55 PM INJECTION WAX MOLDER documented as of this encounter Care Teams Deposit Refund Clerk Relationship Specialty [place] [address] [place] [address] PCP - General 07/21/00 03/16/20 documented as of this encounter
--- OUTSIDE RECORDS SUMMARY | 2025-08-18 11:25 | XMS_ITS | Encounter Summary ---
Author Organization [employer] Address [address] [place] [address] Care Team Providers Care Photography Teacher Name Role Phone Vazquez Mcleod MD Primary Care Provider [phone] Encounter Details Date Type Department Care Team (Late st Contact Info) Description 12/15/[address] [facility] Medicine [address] [place] [address] Anastacio Gutierrez MD NO ADDRESS ON FILE Social History Tobacco Use Types Packs/Day Years Used Date Smoking Tobacco: Never Assessed Sex and Gender Information Value Date Recorded Sex Assigned at Not on file Legal Sex Male 12:36 AM ONCOLOGY NURSE NAVIGATOR Gender Identity Not on file Sexual Orientation Not on file documented as of this encounter Plan of Treatment Not on file documented as of this encounter Visit Diagnoses Not on filedocumented in this encounter Additional Health Concerns Infection Onset Date Last Indicated Resolved Time R/O Respiratory 12/18/2023 12/18/2023 12/18/2023 1 0:55 PM ONCOLOGY NURSE NAVIGATOR documented as of this encounter Care Teams Photography Teacher Relationship Specialty Start [place] [address] [place] [phone] PCP - General 07/21/00 03/16/20 documented as of this encounter
--- OUTSIDE RECORDS SUMMARY | 2025-08-18 11:25 | XMS_ITS | Encounter Summary ---
Author Organization [employer] Address [address] [place] [address] Care Team Providers Care Home Health Rn Name Role Phone Vazquez Mcleod MD Primary Care Provider [phone] Encounter Details Date Type Department Care Team (Late st Contact Info) Description 02/10/[address] [facility] Medicine [address] [place] [phone] [place] [address] [place] [address] Social History Tobacco Use Types Packs/Day Years Used Date Smoking Tobacco: Never Assessed Sex and Gender Information Value Date Recorded Sex Assigned at Not on file Legal Sex Male 12:36 AM HEART DOCTOR Gender Identity Not on file Sexual Orientation Not on file documented as of this encounter Plan of Treatment Not on file documented as of this encounter Visit Diagnoses Not on filedocumented in this encounter Additional Health Concerns Infection Onset Date Last Indicated Resolved Time R/O Respiratory 12/18/2023 12/18/2023 12/18/2023 1 0:55 PM HEART DOCTOR documented as of this encounter Care Teams Home Health Rn Relationship Specialty Start [place] [address] [place] [address] PCP - General 07/21/00 03/16/20 documented as of this encounter
--- OUTSIDE RECORDS SUMMARY | 2025-08-18 11:25 | XMS_ITS | Encounter Summary ---
Author Organization [employer] Address [address] [place] [address] Care Team Providers Care Real Estate Investor Name Role Phone Vazquez Mcleod MD Primary Care Provider [phone] Encounter Details Date Type Department Care Team (Late st Contact Info) Description 10/06/1999 Outpatient Historical [facility] Medicine [address] [place] [phone] Anastacio Gutierrez MD NO ADDRESS ON FILE Social History Tobacco Use Types Packs/Day Years Used Date Smoking Tobacco: Never Assessed Sex and Gender Information Value Date Recorded Sex Assigned at Not on file Legal Sex Male 12:36 AM BUSINESS SYSTEM CONSULTANT Gender Identity Not on file Sexual Orientation Not on file documented as of this encounter Plan of Treatment Not on file documented as of this encounter Visit Diagnoses Not on filedocumented in this encounter Additional Health Concerns Infection Onset Date Last Indicated Resolved Time R/O Respiratory 12/18/2023 12/18/2023 12/18/2023 1 0:55 PM BUSINESS SYSTEM CONSULTANT documented as of this encounter Care Teams Real Estate Investor Relationship Specialty Start [place] [address] [place] [phone] PCP - General 07/21/00 03/16/20 documented as of this encounter
--- OUTSIDE RECORDS SUMMARY | 2025-08-18 11:25 | XMS_ITS | Clinical Summary ---
Author Organization [facility] Address [address] [place] [address] Phone Care Team Providers Care Commodity Director Name Role Phone Unavailable Primary Care Provider [...] file Legal Sex Male 12:36 AM BUSINESS EXECUTIVE Gender Identity Not on file Sexual Orientation Not on file Last Filed Vital Signs Vital Sign Reading Time Taken Comments Blood Pressure 149/86 12/20/2023 12:07 PM BUSINESS EXECUTIVE Pulse 91 12/20/2023 12:07 PM BUSINESS EXECUTIVE Temperature 36.6 C (97.9 F) 12/20/2023 12:07 PM BUSINESS EXECUTIVE Respiratory Rate 18 12/20/2023 12:07 PM BUSINESS EXECUTIVE Oxygen Saturation 99% 12/20/2023 12:07 PM BUSINESS EXECUTIVE Inhaled Oxygen Concentration - - Weight 83 kg (183 lb) 12/18/2023 8:21 PM BUSINESS EXECUTIVE Height 165.1 cm (5' 5) 12/18/2023 8:21 PM BUSINESS EXECUTIVE Body Mass Index 30.45 12/18/2023 8:21 PM BUSINESS EXECUTIVE Plan of Treatment Health Maintenance Due Date Last Done Comments DTAP/TDAP/TD VACCINES (1 - Tdap) 1985 HEPATITIS B VACCINES (1 of 3 - 19+ 3-dose series) 03/20 COLORECTAL SCREENING 2011 Colorectal Cancer Screening 2011 FIT-DNA Q 3 years 2011 FIT/FOBT Q 1 year 2011 Flex Sig/CT Colonography Q 5 years 2011 ZOSTER VACCINE (1 of 2) 2016 INFLUENZA VACCINE (#1) 2025 09/09/2021 Insurance [employer] [facility] [employer] [address] [address] [employer] Express Advance Directives For more information, please contact: [phone] * Full Code (Latest Code Status on File) Date Activated Date Inactivated Comments 12/20/2023 8:19 AM 12/20/2023 3:34 PM * Full Code Date Activated Date Inactivated Comments 04/27/2010 3:13 AM 05/03/2010 3:39 PM * Full Code Date Activated Date Inactivated Comments 04/26/2010 11:50 PM 04/27/2010 3:13 AM
--- OUTSIDE RECORDS SUMMARY | 2025-08-18 11:25 | XMS_ITS | Encounter Summary ---
Author Organization [employer] Address [address] [place] [address] Care Team Providers Care Medication Aid Name Role Phone Vazquez Mcleod MD Primary Care Provider [phone] Encounter Details Date Type Department Care Team (Late st Contact Info) Description 05/31/2000 Outpatient Historical [facility] Medicine 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
--- OUTSIDE RECORDS SUMMARY | 2025-08-18 11:25 | XMS_ITS | Encounter Summary ---
Author Organization [employer] Address 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 Gender Identity Not on file Sexual Orientation Not on file documented as of this encounter Plan of Treatment Not on file documented as of this encounter Visit Diagnoses Diagnosis Chest pain, unspecified- Primary documented in this encounter Additional Health Concerns Infection Onset Date Last Indicated Resolved Time R/O Respiratory 12/18/2023 12/18/2023 12/18/2023 1 0:55 PM METER ATTENDANT documented as of this encounter Care Teams Beamer Operator Relationship Specialty Start [place] [address] [place] [address] PCP - General 07/21/00 03/16/20 documented as of this encounter
--- OUTSIDE RECORDS SUMMARY | 2025-08-18 11:25 | XMS_ITS | Encounter Summary ---
Author Organization [facility] Address [address] [place] [address] Care Team Providers Care Belt Sewer Name Role Phone Unavailable Primary Care Provider Unavailabl e Encounter Details Date Type Department Care Team (Late st Contact Info) Description 04/27/2019 Abstract [facility] CONVERSION [address] [place] [address] , Generic Conversion, Social History Tobacco Use [...]
--- OUTSIDE RECORDS SUMMARY | 2025-08-18 11:25 | XMS_ITS | Clinical Summary ---
Author Organization [facility] Address [facility] [place] [address] Care Team Providers Care General Counselor Name Role Phone Unavailable Primary Care Provider [...] patient's age to complete this topic Insurance [place] [address]
--- OUTSIDE RECORDS SUMMARY | 2025-08-18 11:25 | XMS_ITS | Encounter Summary ---
Author Organization [facility] Address 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 Gender Identity Not on file Sexual Orientation Not on file documented as of this encounter Plan of Treatment Not on file documented as of this encounter Visit Diagnoses Diagnosis Calculus of kidney- Primary documented in this encounter Additional Health Concerns Infection Onset Date Last Indicated Resolved Time R/O Respiratory 12/18/2023 12/18/2023 12/18/2023 1 0:55 PM ELECTRIC PILE DRIVER OPERATOR documented as of this encounter Care Teams Market Intelligence Consultant Relationship Specialty [place] [address] [facility] [address] [place] [address] PCP - General 07/21/00 03/16/20 documented as of this encounter
--- OUTSIDE RECORDS SUMMARY | 2025-08-18 11:25 | XMS_ITS | Encounter Summary ---
Author Organization [employer] Address [address] [place] [address] Care Team Providers Care Day Treatment Clinician/Art Therapist Name Role Phone Vazquez Mcleod MD Primary Care Provider [phone] Encounter Details Date Type Department Care Team (Late st Contact Info) Description 03/04/1999 Outpatient Historical [facility] Medicine 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 Gender Identity Not on file Sexual Orientation Not on file documented as of this encounter Plan of Treatment Not on file documented as of this encounter Visit Diagnoses Not on filedocumented in this encounter Additional Health Concerns Infection Onset Date Last Indicated Resolved Time R/O Respiratory 12/18/2023 12/18/2023 12/18/2023 1 0:55 PM WIRE DRAWING MACHINE TENDER documented as of this encounter Care Teams Day Treatment Clinician/Art Therapist Relationship Specialty [place] [address] [place] [address] PCP - General 07/21/00 03/16/20 documented as of this encounter
--- OUTSIDE RECORDS SUMMARY | 2025-08-18 11:25 | XMS_ITS | Encounter Summary ---
Author Organization [employer] Address [address] [place] [address] Care Team Providers Care Rn Transitional Name Role Phone Vazquez Mcleod MD Primary Care Provider [phone] Encounter Details Date Type Department Care Team [...] on file Legal Sex Male 12:36 AM DELIVERY RN Gender Identity Not on file Sexual Orientation Not on file documented as of this encounter Plan of Treatment Not on file documented as of this encounter Visit Diagnoses Diagnosis Unspecified asthma(493.90)- Primary Unspecified asthma documented in this encounter Additional Health Concerns Infection Onset Date Last Indicated Resolved Time R/O Respiratory 12/18/2023 12/18/2023 12/18/2023 1 0:55 PM DELIVERY RN documented as of this encounter Care Teams Rn Transitional Relationship Specialty [place] [address] [facility] [address] [place] [address] PCP - General 07/21/00 03/16/20 documented as of this encounter
--- OUTSIDE RECORDS SUMMARY | 2025-08-18 11:25 | XMS_ITS | Encounter Summary ---
Author Organization [employer] Address [address] [place] [address] Care Team Providers Care Lace Roller Name Role Phone Vazquez Mcleod MD Primary Care Provider Encounter Details Date Type Department Care Team (Late st Contact Info) Description 03/11/1999 Outpatient Historical [facility] Medicine [address] [place] [address] [place] [address] [place] [address] Social History Tobacco Use Types Packs/Day Years Used Date Smoking Tobacco: Never Assessed Sex and Gender Information Value Date Recorded Sex Assigned at Not on file Legal Sex Male 12:36 AM DIRECTOR TELEMETRY Gender Identity Not on file Sexual Orientation Not on file documented as of this encounter Plan of Treatment Not on file documented as of this encounter Visit Diagnoses Not on filedocumented in this encounter Additional Health Concerns Infection Onset Date Last Indicated Resolved Time R/O Respiratory 12/18/2023 12/18/2023 12/18/2023 1 0:55 PM DIRECTOR TELEMETRY documented as of this encounter Care Teams Lace Roller Relationship Specialty Start [place] [address] [place] [address] PCP - General 07/21/00 03/16/20 documented as of this encounter
--- OUTSIDE RECORDS SUMMARY | 2025-08-18 11:25 | XMS_ITS | Encounter Summary ---
Author Organization [employer] Address [address] [place] [address] Care Team Providers Care Bottle Capper Name Role Phone Vazquez Mcleod MD Primary Care Provider [phone] Encounter Details Date Type Department Care Team (Late st Contact Info) Description 10/06/1999 Outpatient Historical [facility],NON-PATIENT Social History Tobacco Use Types Packs/Day Years Used Date Smoking Tobacco: Never Assessed Sex and Gender Information Value Date Recorded Sex Assigned at Not on file Legal Sex Male 12:36 AM DIE SETTER Gender Identity Not on file Sexual Orientation Not on file documented as of this encounter Plan of Treatment Not on file documented as of this encounter Visit Diagnoses Not on filedocumented in this encounter Additional Health Concerns Infection Onset Date Last Indicated Resolved Time R/O Respiratory 12/18/2023 12/18/2023 12/18/2023 1 0:55 PM DIE SETTER documented as of this encounter Care Teams Bottle Capper Relationship Specialty Start [place] [address] [place] [address] PCP - General 07/21/00 03/16/20 documented as of this encounter
--- OUTSIDE RECORDS SUMMARY | 2025-08-18 11:25 | XMS_ITS | Encounter Summary ---
Author Organization [employer] Address [address] [place] [address] Care Team Providers Care Display And Banner Designer Name Role Phone Vazquez Mcleod MD Primary Care Provider [phone] Encounter Details Date Type Department Care Team (Late st Contact Info) Description 12/30/1999 Outpatient Historical [facility] Medicine 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 TECHNICIAN Gender Identity Not on file Sexual Orientation Not on file documented as of this encounter Plan of Treatment Not on file documented as of this encounter Visit Diagnoses Not on filedocumented in this encounter Additional Health Concerns Infection Onset Date Last Indicated Resolved Time R/O Respiratory 12/18/2023 12/18/2023 12/18/2023 1 0:55 PM SURVEILLANCE TECHNICIAN documented as of this encounter Care Teams Display And Banner Designer Relationship Specialty Start [place] [address] [place] [address] PCP - General 07/21/00 03/16/20 documented as of this encounter
--- OUTSIDE RECORDS SUMMARY | 2025-08-18 11:25 | XMS_ITS | Encounter Summary ---
Author Organization [employer] Address [address] [place] [address] Care Team Providers Care Sap Business Intelligence Consultant Name Role Phone Vazquez Mcleod MD Primary Care Provider [phone] Encounter Details Date Type Department Care Team (Late st Contact Info) Description 09/26/2000 Emergency [facility] Monica Arana MD [address] [place] [address] [place] [address] Er, Authorized P NO ADDRESS ON FILE Renal colic (Primary Dx) Social History Tobacco Use Types Packs/Day Years Used Date Smoking Tobacco: Never Assessed Sex and Gender Information Value Date Recorded Sex Assigned at Not on file 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 Sex Male 12:36 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 Gender Identity Not on file Sexual Orientation Not on file documented as of this encounter Plan of Treatment Not on file documented as of this encounter Visit Diagnoses Diagnosis Renal colic- Primary documented in this encounter Additional Health Concerns Infection Onset Date Last Indicated Resolved Time R/O Respiratory 12/18/2023 12/18/2023 12/18/2023 1 0:55 PM MUFFLE OPERATOR documented as of this encounter Care Teams Sap Business Intelligence Consultant Relationship Specialty Start [place] [address] [place] [address] PCP - General 07/21/00 03/16/20 documented as of this encounter
--- OUTSIDE RECORDS SUMMARY | 2025-08-18 11:25 | XMS_ITS | Encounter Summary ---
Author Organization [facility] Address [address] [place] [address] Care Team Providers Care Web Content & Social Media Manager Name Role Phone Ligiaeugenia Tawny KNAPP-MANAGER RETENTION Primary Care Provider + Akil Figueroa MD Unavailable Encounter Details Date Type Department Care Team (Late st Contact Info) Description 06/28/2024 Op/Procedure Report External [facility] Health Information [address] [place] [phone] Document, Scanned Social History Tobacco Use Types Packs/Day Years Used Date Smoking Tobacco: Every Day Cigarettes 0.2 39.7 Started: 1984 Smokeless Tobacco: Never Alcohol [...] Sex Assigned at Male 10/21/2024 11:57 AM SUPERVISOR CEMETERY WORKERS Legal Sex Male 5:38 AM SUPERVISOR CEMETERY WORKERS Gender Identity Male 10/21/2024 11:57 AM SUPERVISOR CEMETERY WORKERS Sexual Orientation Straight 10/21/2024 11 :57 AM SUPERVISOR CEMETERY WORKERS documented as of this encounter Functional Status [...] Description 09/19/2025 8:45 AM CDT Office Visit [address] [address] Tawny Cooley APRN-CNP [address] [place] [phone] 01/16/2026 2:45 PM SUPERVISOR CEMETERY WORKERS Office Visit [address] [address] Tawny Cooley APRN-CNP [address] [place] [phone] documented as of this encounter Visit Diagnoses Not on filedocumented in this encounter Additional Health Concerns Infection Onset Date Last Indicated Resolved Time COVID-19 Under Investigation 12/04/2024 12/04/2024 12/04/2024 2:14 PM SUPERVISOR CEMETERY WORKERS documented as of this encounter Care Teams Web Content & Social Media Manager Relationship Specialty Start Date End Date Tawny Cooley APRN-CNP PCP - General Nurse Practitioner Family 04/24/20 Akil Figueroa MD [address] [facility] [address] [facility] [address] [place] [address] Urology 07/23/24 documented as of this encounter
--- OUTSIDE RECORDS SUMMARY | 2025-08-18 11:26 | XMS_ITS | Encounter Summary ---
Author Organization [facility] Address [address] [place] [address] Care Team Providers Care Supervisor Livestock Yard Name Role Phone Vazquez Mcleod MD Primary Care Provider [phone] Encounter Details Date Type Department Care Team (Late st Contact Info) Description 05/29/2000 Outpatient Historical [facility] Medicine [address] [place] [phone] [place] [address] [place] [address] Social History Tobacco Use Types Packs/Day Years Used Date Smoking Tobacco: Never Assessed Sex and Gender Information Value Date Recorded Sex Assigned at Not on file Legal Sex Male 12:36 AM GAGE DESIGNER Gender Identity Not on file Sexual Orientation Not on file documented as of this encounter Plan of Treatment Not on file documented as of this encounter Visit Diagnoses Not on filedocumented in this encounter Additional Health Concerns Infection Onset Date Last Indicated Resolved Time R/O Respiratory 12/18/2023 12/18/2023 12/18/2023 1 0:55 PM GAGE DESIGNER documented as of this encounter Care Teams Supervisor Livestock Yard Relationship Specialty Start [place] [address] [place] [address] PCP - General 07/21/00 03/16/20 documented as of this encounter
--- OUTSIDE RECORDS SUMMARY | 2025-08-18 11:26 | XMS_ITS | Clinical Summary ---
Author Organization [facility] Address [address] [place] [address] Care Team Providers Care Chin Strap Maker Name Role Phone Ligiaeugenia Tawny KNAPP-SURGICAL ASSISTANT Primary Care Provider + Akil Figueroa MD Unavailable Source Comments [facility],non-owned Affiliates and Associated Physician Practices is amultiple site organization consisting of ambulatory clinics and hospital sitesin [place], [place]. This disclosure is being madepursuant to the Care Everywhere program and may not contain all information available regarding this patient. Last updated 18.[facility] Allergies Active Allergy Reactions Criticality Noted Date [...] 25 Active Spacer/Aero-Hold ing Chambers JAKE Active predniSONE (Deltasone) 50 MG tabletIndication s:Right elbow [...] - 08/09/2025 11:59 PM CDT Hospital Encounter [facility] - Cardiac Rehab [address] [place] [address] Unknown, Provider Hospitalist Discharge Disposition: Home or Self Care 08/09/2025 9:03 AM CDT - 08/09/2025 9:06 AM CDT Hospital Encounter [facility] - Laboratory [address] [place] [address] Leonard Mccallum MD Hoffmann, Sandra S, MD Unknown, Provider Discharge Disposition: Home or Self Care 07/30/2025 8:44 AM CDT - 07/30/2025 11:59 PM CDT Hospital Encounter [facility]-MRI [address] [place] [address] Tawny Cooley, INSURANCE SALES PROFESSIONAL-SURGICAL ASSISTANT Discharge Disposition: Home or Self Care 07/30/2025 Orders Only [address] [phone] Tawny Cooley APRN-CNP Partial tear of common extensor tendon of right elbow ; Tendinopathy of elbow, right 07/30/2025 Results Follow-Up [address] [phone] Tawny Cooley APRN-CNP Results 07/24/[address] [phone] Tawny Cooley APRN-CNP Durable Medical Equipment 07/21/2025 Results Follow-Up [address] [phone] Tawny Cooley APRN-CNP 07/18/2025 4:46 PM CDT - 07/18/2025 11:59 PM CDT Hospital Encounter [facility] - Laboratory [address] [place] [phone] Tawny Cooley APRN-CNP Discharge Disposition: Home or Self Care 07/18/2025 3:15 PM CDT Office Visit [address] [phone] Tawny Cooley APRN-CNP Mild intermittent asthma, unspecified [...] infection with hematuria, site unspecified 05/19/[address] [phone] Tawny Cooley APRN-CNP Refill Request from Last 3 Months Immunizations Immunization Administration Dates Next Due Oyster primary monoval ent 12+ yr 0.3mL Purple [...] 0.2 39.7 Started: 1985 Smokeless Tobacco: Never Tobacco [...] Sex Assigned at Male 10/21/2024 11:57 AM PATROL SERGEANT SHERIFF'S OFFICE Legal Sex Male 5:38 AM PATROL SERGEANT SHERIFF'S OFFICE Gender Identity Male 10/21/2024 11:57 AM PATROL SERGEANT SHERIFF'S OFFICE Sexual Orientation Straight 10/21/2024 11 :57 AM PATROL SERGEANT SHERIFF'S OFFICE Last Filed Vital Signs Vital Sign Reading [...] Upcoming Encounters Date Type Department Care Team ([facility] st Contact Info) Description 09/19/2025 8:45 AM CDT Office Visit [address] [phone] Tawny Cooley, INSURANCE SALES PROFESSIONAL-SURGICAL ASSISTANT [address] [place] [phone] 01/16/2026 2:45 PM PATROL SERGEANT SHERIFF'S OFFICE Office Visit [address] [phone] Tawny Cooley, INSURANCE SALES PROFESSIONAL-SURGICAL ASSISTANT [address] [place] [phone] Health Maintenance Due Date Last Done Comments COLOGUARD (AGES 45-75) - COLON CA SCREENING 1966 CT COLONOGRAPHY - COLON CA SCREENING 1966 FIT - COLON CA SCREENING 1966 FLEX SIG - COLON CA SCREENING 1966 PNEUMOCOCCAL VACCINE 50+ (1 of 2 - PCV) 1985 COVID-19 VACCINE ( - season) 2025 11/28/2021, 05/29/2021, 05/08/2021 INFLUENZA VACCINE [...] URINALYSIS DIPSTICK - POINT OF CARE (AMB) [facility] Routine 07/18/2025 4:30 PM CDT Dysuria URINE CULT RST RFLXED Routine 07/18/2025 4:15 PM CDT Urinary tract infection with hematuria, site unspecified CULTURE URINE Routine 07/18/2025 4:15 PM CDT Urinary tract infection with hematuria, site unspecified from Last 3 Months Results * URINE CULT RST RFLXED (08/09/2025 10:11 AM CDT) Only the most recent of2 resultswithin the time period is included. Result 1 No growth 08/12/2025 4:06 AM CDT [facility] ([facility]) Urine URINE SPECIMEN OBTAINED BY CLEAN CATCH PROCEDURE / Unknown Collection / Unknown 08/09/2025 10:11 AM CDT 08/09/2025 10:11 AM CDT Narrative [facility] ([facility]) - 08/12/2025 4:06 AM CDT Performed at: [facility] [address] [id number] Molding Press Operator: Geovany Johnston PhD, Phone: [phone] us Akil Figueroa MD LAB - MICROBIOLOGY ORDERABLES Fi nal Result [facility] ([facility]) [address] [place] [address] * (ABNORMAL) HEMOGLOBIN A1C (08/09/2025 10:11 AM CDT) Hemoglobin A1c 5.9(H) 0.0 - 5.7 % 08/09/2025 11:38 AM CDT [facility] ([facility]) Estimated Average Glucose 122.63 mg/dL 08/09/2025 11:38 AM CDT [facility] ([facility]) Blood BLOOD SPECIMEN / Unknown Lab Venipuncture / Unknown 08/09/2025 10:11 AM CDT 08/09/2025 10:11 AM CDT Narrative [facility] ([facility]) - 08/09/2025 11:38 AM CDT [place] [employer] Suggested Interpretation: 5.7-6.4% Hemoglobin A1c = Prediabetes >6.5% Hemoglobin A1c = Consistent with Diabetes [employer] LAB - CHEMISTRY ORDERABL ES Final Result Performing Organization Address [facility] Co de Phone Number [facility] ([facility]) [address] [place] [address] * (ABNORMAL) VITAMIN D 25-HYDROXY (08/09/2025 10:11 AM CDT) Vitamin D, 25 Hydroxy 28(L) 30 - 100 ng/mL 08/09/2025 12:19 PM CDT [facility] ([facility]) Blood BLOOD SPECIMEN / Unknown Lab Venipuncture / Unknown 08/09/2025 10:11 AM CDT 08/09/2025 10:11 AM CDT [employer] INSURANCE SALES PROFESSIONAL-SURGICAL ASSISTANT LAB - CHEMISTRY ORDERABL ES Final Result Performing Organization Address [facility]/ZIP Co de Phone Number [facility] ([facility]) [address] [place] [address] * CULTURE URINE (08/09/2025 10:11 AM CDT) Only the most recent of2 resultswithin the time period is included. Pathologist [facility] Urine Culture Routine Final report 08/12/2025 4:06 AM CDT [facility] ([facility]) Urine URINE SPECIMEN OBTAINED BY CLEAN CATCH PROCEDURE / Unknown Collection / Unknown 08/09/2025 10:11 AM CDT 08/09/2025 10:11 AM CDT Narrative [facility] ([facility]) - 08/12/2025 4:06 AM CDT Performed at: 01 - [address] [id number] Molding Press Operator: Geovany Johnston PhD, Phone: [phone] Akil Figueroa MD LAB - MICROBIOLOGY ORDERABLES Fi nal Result [facility] [address] [place] [address] * (ABNORMAL) CBC WITH DIFFERENTIAL (08/09/2025 10:11 AM CDT) [facility] WBC 7.5 4.0 - 10.0 K/uL 08/09/2025 11:17 AM CDT [facility] ([facility]) RBC 5.8(H) 4.2 - 5.7 M/ul 08/09/2025 11:17 AM CDT [facility] ([facility]) Hemoglobin 16.1 13.0 - 18.0 g/dL 08/09/2025 11:17 AM CDT [facility] ([facility]) Hematocrit 49.2 38.0 - 51.0 % 08/09/2025 11:17 AM CDT [facility] ([facility]) MCV 84.5 82.0 - 98.0 fL 08/09/2025 11:17 AM CDT [facility] ([facility]) MCH 27.7 27.0 - 34.0 pg 08/09/2025 11:17 AM CDT [facility] ([facility]) MCHC 32.7 32.0 - 35.0 g/dL 08/09/2025 11:17 AM CDT [facility] ([facility]) RDW-CV 14.4 11.4 - 14.6 % 08/09/2025 11:17 AM T [facility] ([facility]) Platelet Count 353 120 - 410 K/uL 08/09/2025 11:17 AM T [facility] ([facility]) MPV 9.0 5.2 - 12.8 fL 08/09/2025 11:17 AM [facility] ([facility]) Neutrophils % 60.5 25.0 - 78.0 % 08/09/2025 11:17 AM T [facility] ([facility]) Lymphocytes % 27.1 10.0 - 50.0 % 08/09/2025 11:17 AM T [facility] ([facility]) Monocytes % 7.8 0.0 - 11.0 % 08/09/2025 11:17 AM [facility] ([facility]) Eosinophils % 4.0(H) 0.0 - 3.0 % 08/09/2025 11:17 AM [facility] ([facility]) Basophils % 0.5 0.0 - 1.5 % 08/09/2025 11:17 AM [facility] ([facility]) Neutrophil Absolute 4.5 2.0 - 6.9 K/uL 08/09/2025 11:17 AM T [facility] ([facility]) Lymphocyte Absolute 2.0 0.6 - 4.6 K/uL 08/09/2025 11:17 AM [facility] ([facility]) Monocyte Absolute 0.6 0.0 - 0.9 K/uL 08/09/2025 11:17 AM [facility] ([facility]) Eosinophil Absolute 0.3 0.0 - 0.7 K/uL 08/09/2025 11:17 AM [facility] ([facility]) Basophil Absolute 0.0 0.0 - 0.2 K/uL 08/09/2025 11:17 AM [facility] ([facility]) Immature Granulocytes % 0.1 0.0 - 0.5 % 08/09/2025 11:17 AM T [facility] ([facility]) Immature Granulocytes Absolute 0.01 0.00 - 0.03 K/UL 08/09/2025 11:17 AM CDT [facility] ([facility]) Blood BLOOD SPECIMEN / Unknown Lab Venipuncture / Unknown 08/09/2025 10:11 AM CDT 08/09/2025 10:11 AM CDT Tawny Cooley INSURANCE SALES PROFESSIONAL-SURGICAL ASSISTANT LAB - HEMATOLOGY ORDERAB LES Final Result [facility] ([facility]) [address] [place] [address] * (ABNORMAL) COMPREHENSIVE METABOLIC PANEL (08/09/2025 10:11 AM CDT) Sodium 141 137 - 145 mmol/L 08/09/2025 12:20 PM CDT [facility] ([facility]) Potassium 4.2 3.6 - 5.0 mmol/L 08/09/2025 12:20 PM T [facility] ([facility]) Chloride 106 98 - 107 mmol/L 08/09/2025 12:20 PM T [facility] ([facility]) Carbon Dioxide 26 21 - 31 mmol/L 08/09/2025 12:20 PM T [facility] ([facility]) Glucose 105(H) 75 - 100 mg/dL 08/09/2025 12:20 PM T [facility] ([facility]) BUN 15 7 - 17 mg/dL 08/09/2025 12:20 PM T [facility] ([facility]) Creatinine 1.00 0.66 - 1.25 mg/dL 08/09/2025 12:20 PM T [facility] ([facility]) eGFR 76 >=60 ml/min/1.7 3*2 08/09/2025 12:20 PM [facility] ([facility]) Comment: Chronic kidney disease is defined as [...] 15.2 6.0 - 26.0 08/09/2025 12:20 PM CDT [facility] ([facility]) Calcium 9.8 8.4 - 10.7 mg/dL 08/09/2025 12:20 PM CDT [facility] ([facility]) Protein Total 7.7 6.3 - 8.2 g/dL 08/09/2025 12:20 PM CDT [facility] ([facility]) Albumin 4.4 3.9 - 5.0 g/dL 08/09/2025 12:20 PM CDT [facility] ([facility]) Albumin/Globulin Ratio 1.3 1.1 - 2.2 g/dL 08/09/2025 12:20 PM CDT [facility] ([facility]) Bilirubin Total 0.5 0.2 - 1.3 mg/dL 08/09/2025 12:20 PM CDT [facility] ([facility]) Alkaline Phosphatase 107 38 - 126 U/L 08/09/2025 12:20 PM CDT [facility] ([facility]) AST 25 14 - 50 U/L 08/09/2025 12:20 PM CDT [facility] ([facility]) ALT 39 9 - 52 U/L 08/09/2025 12:20 PM CDT [facility] ([facility]) Blood BLOOD SPECIMEN / Unknown Lab Venipuncture / Unknown 08/09/2025 10:11 AM CDT 08/09/2025 10:11 AM CDT [facility] INSURANCE SALES PROFESSIONAL-SURGICAL ASSISTANT LAB - CHEMISTRY ORDERABL ES Final Result [facility] ([facility]) [address] [place] [address] * VITAMIN B12 (08/09/2025 10:11 AM CDT) Vitamin B12 396 232 - 1245 pg/mL 08/11/2025 12:07 PM CDT [facility] ([facility]) Blood BLOOD SPECIMEN / Unknown Lab Venipuncture / Unknown 08/09/2025 10:11 AM CDT 08/09/2025 10:11 AM CDT Narrative [facility] ([facility]) - 08/11/2025 12:07 PM CDT Performed at: 01 - [facility] [address] [place], [place] [id number] Molding Press Operator: Geovany Johnston PhD, Phone: [phone] [employer]-SURGICAL ASSISTANT LAB - CHEMISTRY ORDERABL ES Final Result Performing Organization Address City/[facility]/ZIP Co de Phone Number [facility] ([facility]) [address] [place] [address] * TSH (08/09/2025 10:11 AM CDT) [facility] TSH 0.989 0.465 - 4.680 mIU/mL 08/09/2025 12:20 PM CDT [facility] ([facility]) Blood BLOOD SPECIMEN / Unknown Lab Venipuncture / Unknown 08/09/2025 10:11 AM CDT 08/09/2025 10:11 AM CDT [employer] INSURANCE SALES PROFESSIONAL-SURGICAL ASSISTANT LAB - CHEMISTRY ORDERABL ES Final Result Performing Organization Address City/[facility]/ZIP Co de Phone Number [facility] ([facility]) [address] [place] [address] * (ABNORMAL) LIPID PROFILE (08/09/2025 10:11 AM CDT) Pathologist [facility] Cholesterol 215(H) 110 - 200 mg/dL 08/09/2025 12:20 PM CDT [facility] ([facility]) Triglycerides 144 40 - 150 mg/dL 08/09/2025 12:20 PM CDT [facility] ([facility]) HDL 39(L) 40 - 60 mg/dL 08/09/2025 12:20 PM CDT [facility] ([facility]) LDL Direct 135(H) 0 - 99 mg/dL 08/09/2025 12:20 PM CDT [facility] ([facility]) VLDL 29 0 - 40 mg/dL 08/09/2025 12:20 PM CDT [facility] ([facility]) CHOL/HDL RATIO 6.00(H) 0.00 - 4.98 08/09/2025 12:20 PM CDT [facility] ([facility]) Blood BLOOD SPECIMEN / Unknown Lab Venipuncture / Unknown 08/09/2025 10:11 AM CDT 08/09/2025 10:11 AM CDT Tawny Ligiaeugenia INSURANCE SALES PROFESSIONAL-SURGICAL ASSISTANT LAB - CHEMISTRY ORDERABL ES Final Result [facility] ([facility]) [address] [place] [address] * (ABNORMAL) PT PTT PANEL (08/09/2025 10:08 AM CDT) PT 10.1 9.2 - 11.0 sec 08/09/2025 11:39 AM CDT [facility] ([facility]) INR 0.97(L) 2 - 4 08/09/2025 11:39 AM CDT [facility] ([facility]) PTT 28.7 20.6 - 31.1 sec 08/09/2025 11:39 AM CDT [facility] ([facility]) Blood BLOOD SPECIMEN / Unknown Lab Venipuncture / Unknown 08/09/2025 10:08 AM CDT 08/09/2025 10:11 AM CDT [facility] ([facility]) - 08/09/2025 11:39 AM CDT Therapeutic Ranges: Prophylaxis, treatment of DVT, PE......... 2.0-3.0 Tissue Heart Valves ..................................... 2.0-3.0 Acute AK ...................................... 2.5-3.5 Valvular Heart Disease ..........................2.5-3.5 Atrial Fibrillation ............................2.5-3.5 Mechanical Heart Vlave .............2.5-3.5 For more Informations see CHEST Vol 119/1 Supp (2000) Akil Figueroa MD LAB - COAGULATION ORDERABLES Fin al Result [facility] ([facility]) [address] [place] [address] * EKG 12-Lead (08/09/2025 9:24 AM CDT) us Ashu Bright MD ECG ORDERABLES Final Result Performing Organization Address [facility]/ZIP Co de Phone Number [facility] * MRI Elbow Right Wo Contrast [...] DATE/TIME OF EXAM: 07/30/2025 9:27 AM, LOCATION [facility] INDICATION: M25.521: Right elbow pain COMPARISON: None. [...] ELBOW RIGHT WO CONTRAST, DATE/TIME OF EXAM: :27 AM, LOCATION [facility] INDICATION: M25.521: Right elbow pain COMPARISON: None. [...] DO on 07/30/2025 2:38 PM Tawny Cooley INSURANCE SALES PROFESSIONAL-SURGICAL ASSISTANT MR ORDERABLES Final Re sult * (ABNORMAL) URINALYSIS DIPSTICK - POINT OF CARE (AMB) [facility] (07/18/2025 4:30 PM CDT) Color UA Yellow Yellow, Natalia AFF [facility] Clarity UA Clear Clear, Hazy AFF [facility] Specific [place] UA 1.020 1.000, 1.005, 1.010, 1.015, 1.020, 1.025 [facility] pH UA 7.0 5.0, 5.5, 6.0, 6.5, 7.0, 7.5, 8.0, 8.5, 9.0 [facility] Protein UA Trace Negative, Trace AFF [facility] Glucose UA Negative Negative [facility] Ketone UA Negative Negative [facility]FF [facility] Bilirubin UA Small(A) Negative [facility] Blood UA Moderate(A) Negative [facility] Leukocyte Esterase UA Small(A) Negative [facility] Nitrite UA Negative Negative [facility] Urobilinogen UA Negative 0.2 EU/dL, 1.0 EU/dL, Negative [facility] Urine URINE / Unknown 07/18/2025 4 :30 PM CDT Tawny Ligiaeugenia INSURANCE SALES PROFESSIONAL-SURGICAL ASSISTANT LAB - POINT OF CARE TRACY NINO Final Result [facility] [address] [place] [address], [facility] from Last 3 Months Insurance [employer] Member Subscriber Plan / Payer (Ef fective for All Dates) Name:Vazquez Coles Relation to Subscriber:Self Name:Vazquez Coles Payer ID:Not on file Group ID:Not on file Type:Worker's Comp Address: [address] [employer] Advance Directives * Full Code (Latest Code Status on File) Date Activated Date Inactivated Comments 04/06/2020 9:13 PM 04/08/2020 5:33 PM Care Teams Chin Strap Maker Relationship Specialty Start Date End Date Tawny Cooley, INSURANCE SALES PROFESSIONAL-SURGICAL ASSISTANT PCP - General Nurse Practitioner Family 04/24/20 Akil Figueroa MD [address] [facility] [address] [facility] [address] [place] [address] Urology 07/23/24
--- OUTSIDE RECORDS SUMMARY | 2025-08-18 11:26 | XMS_ITS | Encounter Summary ---
Author Organization [address] Address [address] [place] [address] Care Team Providers Care Bottom Wheeler Name Role Phone Vazquez Mcleod MD Primary Care Provider [phone] Encounter Details Date Type Department Care Team (Late st Contact Info) Description 03/07/2000 Outpatient Historical [facility] Medicine [address] [place] [phone] [place] [address] [place] [address] Social History Tobacco Use Types Packs/Day Years Used Date Smoking Tobacco: Never Assessed Sex and Gender Information Value Date Recorded Sex Assigned at Not on file Legal Sex Male 12:36 AM RICE MILLING SUPERVISOR Gender Identity Not on file Sexual Orientation Not on file documented as of this encounter Plan of Treatment Not on file documented as of this encounter Visit Diagnoses Not on filedocumented in this encounter Additional Health Concerns Infection Onset Date Last Indicated Resolved Time R/O Respiratory 12/18/2023 12/18/2023 12/18/2023 1 0:55 PM RICE MILLING SUPERVISOR documented as of this encounter Care Teams Bottom Wheeler Relationship Specialty Start [place] [address] [place] [address] PCP - General 07/21/00 03/16/20 documented as of this encounter
--- OUTSIDE RECORDS SUMMARY | 2025-08-18 11:26 | XMS_ITS | Encounter Summary ---
Author Organization [facility] Address [address] [place] [address] Care Team Providers Care Engraved Roller Inspector Name Role Phone Ligiaeugenia Tawny KNAPP-CLIENT SUCCESS MANAGER Primary Care Provider + Akil Figueroa MD Unavailable Encounter Details Date Type Department Care Team ([facility] st Contact Info) Description 08/19/2022 Op/Procedure Report External [facility] [address] [place] [id number] Document, Scanned Social History Tobacco Use Types [...] Sex Assigned at Male 10/21/2024 11:57 AM COMPUTER TAPE LIBRARIAN Legal Sex Male 5:38 AM COMPUTER TAPE LIBRARIAN Gender Identity Male 10/21/2024 11:57 AM COMPUTER TAPE LIBRARIAN Sexual Orientation Straight 10/21/2024 11 :57 AM COMPUTER TAPE LIBRARIAN COVID-19 Exposure Response Date Recorded In the [...] Description 09/19/2025 8:45 AM CDT Office Visit [address] [phone] Tawny Cooley APRN-CNP [address] [place] [phone] 01/16/2026 2:45 PM COMPUTER TAPE LIBRARIAN Office Visit [address] [phone] Tawny Cooley APRN-CNP [address] [place] [phone] documented as of this encounter Visit Diagnoses Not on filedocumented in this encounter Additional Health Concerns Infection Onset Date Last Indicated Resolved Time COVID-19 Under Investigation 12/04/2024 12/04/2024 12/04/2024 2:14 PM COMPUTER TAPE LIBRARIAN documented as of this encounter Care Teams Engraved Roller Inspector Relationship Specialty Start Date End Date Tawny Cooley APRN-NEENA PCP - General Nurse Practitioner Family 04/24/20 Akil Figueroa MD [address] [facility] [address] [facility] [address] [place] [address] Urology 07/23/24 documented as of this encounter
--- OUTSIDE RECORDS SUMMARY | 2025-08-18 11:26 | XMS_ITS | Encounter Summary ---
Author Organization [facility] Address [address] [place] [address] Care Team Providers Care Electric Vehicle Electrician Name Role Phone Ligiaeugenia Tawny KNAPP-WAISTLINE JOINER Primary Care Provider + Akil Figueroa MD Unavailable Encounter Details Date Type Department Care Team ([facility] st Contact Info) Description 08/19/2022 Op/Procedure Report External [facility] [address] [place] [id number] Document, Scanned Social History Tobacco Use Types [...] Sex Assigned at Male 10/21/2024 11:57 AM CHAIR INSPECTOR AND LEVELER Legal Sex Male 5:38 AM CHAIR INSPECTOR AND LEVELER Gender Identity Male 10/21/2024 11:57 AM CHAIR INSPECTOR AND LEVELER Sexual Orientation Straight 10/21/2024 11 :57 AM CHAIR INSPECTOR AND LEVELER COVID-19 Exposure Response Date Recorded In the [...] Description 09/19/2025 8:45 AM CDT Office Visit [address] [phone] Tawny Cooley APRN-CNP [address] [place] [phone] 01/16/2026 2:45 PM CHAIR INSPECTOR AND LEVELER Office Visit [address] [phone] Tawny Cooley APRN-CNP [address] [place] [phone] documented as of this encounter Visit Diagnoses Not on filedocumented in this encounter Additional Health Concerns Infection Onset Date Last Indicated Resolved Time COVID-19 Under Investigation 12/04/2024 12/04/2024 12/04/2024 2:14 PM CHAIR INSPECTOR AND LEVELER documented as of this encounter Care Teams Electric Vehicle Electrician Relationship Specialty Start Date End Date Tawny Cooley APRN-NEENA PCP - General Nurse Practitioner Family 04/24/20 Akil Figueroa MD [address] [facility] [address] [facility] 200 [place] [address] Urology 07/23/24 documented as of this encounter
--- OUTSIDE RECORDS SUMMARY | 2025-08-18 11:26 | XMS_ITS | Encounter Summary ---
Author Organization [facility] Address [address] [place] [address] Care Team Providers Care Director University Name Role Phone Ligiaeugenia Tawny KNAPP-STREET LIGHT SERVICER Primary Care Provider + Akil Figueroa MD Unavailable Encounter Details Date Type Department Care Team ([facility] st Contact Info) Description 08/19/2022 Op/Procedure Report External [facility] [address] [place] [phone] Document, Scanned Social History Tobacco Use Types [...] Sex Assigned at Male 10/21/2024 11:57 AM MEAL GRINDER TENDER Legal Sex Male 5:38 AM MEAL GRINDER TENDER Gender Identity Male 10/21/2024 11:57 AM MEAL GRINDER TENDER Sexual Orientation Straight 10/21/2024 11 :57 AM MEAL GRINDER TENDER COVID-19 Exposure Response Date Recorded In the [...] Description 09/19/2025 8:45 AM CDT Office Visit [address] [phone] Tawny Cooley APRN-CNP [address] [place] [phone] 01/16/2026 2:45 PM MEAL GRINDER TENDER Office Visit [address] [phone] Tawny Cooley APRN-CNP [address] [place] [address] [phone] documented as of this encounter Visit Diagnoses Not on filedocumented in this encounter Additional Health Concerns Infection Onset Date Last Indicated Resolved Time COVID-19 Under Investigation 12/04/2024 12/04/2024 12/04/2024 2:14 PM MEAL GRINDER TENDER documented as of this encounter Care Teams Director University Relationship Specialty Start Date End Date Tawny Cooley APRN-NEENA PCP - General Nurse Practitioner Family 04/24/20 Akil [address] [facility] [address] [place] [address] Urology 07/23/24 documented as of this encounter
--- OUTSIDE RECORDS SUMMARY | 2025-08-18 11:26 | XMS_ITS | Encounter Summary ---
Author Organization [email or web address] Address [address] [place] [address] Care Team Providers Care Improvement Nurse Name Role Phone Vazquez Mcleod MD Primary Care Provider [phone] Encounter Details Date Type Department Care Team (Late st Contact Info) Description 03/21/2000 Outpatient Historical [facility] Medicine [address] [place] [phone] [place] [address] [place] [address] Social History Tobacco Use Types Packs/Day Years Used Date Smoking Tobacco: Never Assessed Sex and Gender Information Value Date Recorded Sex Assigned at Not on file Legal Sex Male 12:36 AM RN ACCESS Gender Identity Not on file Sexual Orientation Not on file documented as of this encounter Plan of Treatment Not on file documented as of this encounter Visit Diagnoses Not on filedocumented in this encounter Additional Health Concerns Infection Onset Date Last Indicated Resolved Time R/O Respiratory 12/18/2023 12/18/2023 12/18/2023 1 0:55 PM RN ACCESS documented as of this encounter Care Teams Improvement Nurse Relationship Specialty [place] [address] [place] [address] PCP - General 07/21/00 03/16/20 documented as of this encounter
--- OUTSIDE RECORDS SUMMARY | 2025-08-18 11:26 | XMS_ITS | Encounter Summary ---
Author Organization [employer] Address [address] [place] [address] Care Team Providers Care Judicial Reporter Name Role Phone Vazquez Mcleod MD Primary Care Provider [phone] Encounter Details Date Type Department Care Team (Late st Contact Info) Description 05/16/2000 Outpatient Historical [facility] Medicine [address] [place] [phone] [place] [address] [place] [address] Social History Tobacco Use Types Packs/Day Years Used Date Smoking Tobacco: Never Assessed Sex and Gender Information Value Date Recorded Sex Assigned at Not on file Legal Sex Male 12:36 AM SERVICE ATTENDANT Gender Identity Not on file Sexual Orientation Not on file documented as of this encounter Plan of Treatment Not on file documented as of this encounter Visit Diagnoses Not on filedocumented in this encounter Additional Health Concerns Infection Onset Date Last Indicated Resolved Time R/O Respiratory 12/18/2023 12/18/2023 12/18/2023 1 0:55 PM SERVICE ATTENDANT documented as of this encounter Care Teams Judicial Reporter Relationship Specialty Start [place] [address] [place] [address] PCP - General 07/21/00 03/16/20 documented as of this encounter
--- OUTSIDE RECORDS SUMMARY | 2025-08-18 11:26 | XMS_ITS | Encounter Summary ---
Author Organization [employer] Address [address] [place] [address] Care Team Providers Care Crab Picker Name Role Phone Vazquez Mcleod MD Primary Care Provider Encounter Details Date Type Department Care Team (Late st Contact Info) Description 03/17/2000 Outpatient Historical [facility] [place] [address] [place] [address] Abdominal pain, unspecified site (Primary Dx) Social History Tobacco Use Types Packs/Day Years Used Date Smoking Tobacco: Never Assessed Sex and Gender Information Value Date Recorded Sex Assigned at Not on file Legal Sex Male 12:36 AM YARN REWINDER Gender Identity Not on file Sexual Orientation Not on file documented as of this encounter Plan of Treatment Not on file documented as of this encounter Visit Diagnoses Diagnosis Abdominal pain, unspecified site- Primary documented in this encounter Additional Health Concerns Infection Onset Date Last Indicated Resolved Time R/O Respiratory 12/18/2023 12/18/2023 12/18/2023 1 0:55 PM YARN REWINDER documented as of this encounter Care Teams Crab Picker Relationship Specialty [place] [address] [place] [address] PCP - General 07/21/00 03/16/20 documented as of this encounter
--- OUTSIDE RECORDS SUMMARY | 2025-08-18 11:26 | XMS_ITS | Encounter Summary ---
Author Organization [employer] Address [address] [place] [address] Care Team Providers Care Spool Salvager Name Role Phone Vazquez Mcleod MD Primary Care Provider [phone] Encounter Details Date Type Department Care Team (Late st Contact Info) Description 04/11/2000 Outpatient Historical [facility] Medicine [address] [place] [phone] [place] [address] [place] [address] Social History Tobacco Use Types Packs/Day Years Used Date Smoking Tobacco: Never Assessed Sex and Gender Information Value Date Recorded Sex Assigned at Not on file Legal Sex Male 12:36 AM CASING FINISHER AND STUFFER Gender Identity Not on file Sexual Orientation Not on file documented as of this encounter Plan of Treatment Not on file documented as of this encounter Visit Diagnoses Not on filedocumented in this encounter Additional Health Concerns Infection Onset Date Last Indicated Resolved Time R/O Respiratory 12/18/2023 12/18/2023 12/18/2023 1 0:55 PM CASING FINISHER AND STUFFER documented as of this encounter Care Teams Spool Salvager Relationship Specialty [place] [address] [place] [address] PCP - General 07/21/00 03/16/20 documented as of this encounter
--- OUTSIDE RECORDS SUMMARY | 2025-08-18 11:26 | XMS_ITS | Encounter Summary ---
Author Organization [facility] Address [address] [place] [address] Care Team Providers Care Rigging And Controls Aircraft Mechanic Name Role Phone Tawny Cooley Primary Care Provider + Akil Figueroa MD Unavailable Reason for Visit * Reason Onset Date Comments Results 07/30/2025 Encounter Details Date Type Department Care Team ([facility] Contact Info) Description 07/30/2025 [facility] [address] [place] [address] Tawny Cooley APRN-CNP [address] [place] [phone] Results Social History Tobacco Use Types Packs/Day Years Used Date Smoking Tobacco: Every Day Cigarettes 0.2 39.7 Started: 1984 Smokeless Tobacco: Never Comments:Smoke [...] Sex Assigned at Male 10/21/2024 11:57 AM CLINICAL NURSE Legal Sex Male 5:38 AM CLINICAL NURSE Gender Identity Male 10/21/2024 11:57 AM CLINICAL NURSE Sexual Orientation Straight 10/21/2024 11 :57 AM CLINICAL NURSE documented as of this encounter Functional Status * Is person deaf or have serious hearing difficulty? Answer Date of Assessment Author No 04/08/2020 4:06 PM Yamil Kirkland RN * Is person blind or have serious difficulty seeing? Answer Date of Assessment Author No 04/08/2020 4:06 PM Yamil Krikland RN * Does person have serious difficulty [...] the possibility of the steroid injection. # [phone] for Luca documented in this encounter Plan of Treatment Upcoming Encounters Date Type Department Care Team (Late st Contact Info) Description 09/19/2025 8:45 AM CDT Office Visit [address] [phone] Tawny Cooley ACCOUNT MANAGER B2B-CHAR HOUSE SUPERVISOR [address] [place] [phone] 01/16/2026 2:45 PM CLINICAL NURSE Office Visit [address] [phone] Tawny Cooley APRN-CHAR HOUSE SUPERVISOR [address] [place] [phone] documented as of this encounter Visit Diagnoses Not on filedocumented in this encounter Care Teams Rigging And Controls Aircraft Mechanic Relationship Specialty Start Date End Date Tawny Cooley APRN-CHAR HOUSE SUPERVISOR PCP - General Nurse Practitioner Family 04/24/20 Akil Figueroa MD [address] [facility] 162 [facility] 200 [place] [address] Urology 07/23/24 documented as of this encounter
--- OUTSIDE RECORDS SUMMARY | 2025-08-18 11:26 | XMS_ITS | Encounter Summary ---
Author Organization [employer] Address [address] [place] [address] Care Team Providers Care Shear Setter Name Role Phone Vazquez Mcleod MD Primary Care Provider [phone] Encounter Details Date Type Department Care Team (Late st Contact Info) Description 03/16/2000 Outpatient Historical [facility] Medicine [address] [place] [phone] [place] [address] [place] [address] Social History Tobacco Use Types Packs/Day Years Used Date Smoking Tobacco: Never Assessed Sex and Gender Information Value Date Recorded Sex Assigned at Not on file Legal Sex Male 12:36 AM MANUFACTURING PRODUCTION MANAGER Gender Identity Not on file Sexual Orientation Not on file documented as of this encounter Plan of Treatment Not on file documented as of this encounter Visit Diagnoses Not on filedocumented in this encounter Additional Health Concerns Infection Onset Date Last Indicated Resolved Time R/O Respiratory 12/18/2023 12/18/2023 12/18/2023 1 0:55 PM MANUFACTURING PRODUCTION MANAGER documented as of this encounter Care Teams Shear Setter Relationship Specialty [place] [address] [place] [address] PCP - General 07/21/00 03/16/20 documented as of this encounter
--- OUTSIDE RECORDS SUMMARY | 2025-08-18 11:26 | XMS_ITS | Encounter Summary ---
Author Organization [employer] Address [address] [place] [address] Care Team Providers Care Sprinkler Inspector Name Role Phone Vazquez Mcleod MD Primary Care Provider [phone] Encounter Details Date Type Department Care Team (Late st Contact Info) Description 02/17/2000 Outpatient Historical [facility] Medicine [address] [place] [phone] [place] [address] [place] [address] Social History Tobacco Use Types Packs/Day Years Used Date Smoking Tobacco: Never Assessed Sex and Gender Information Value Date Recorded Sex Assigned at Not on file Legal Sex Male 12:36 AM MEMS INTEGRATION ENGINEER Gender Identity Not on file Sexual Orientation Not on file documented as of this encounter Plan of Treatment Not on file documented as of this encounter Visit Diagnoses Not on filedocumented in this encounter Additional Health Concerns Infection Onset Date Last Indicated Resolved Time R/O Respiratory 12/18/2023 12/18/2023 12/18/2023 1 0:55 PM MEMS INTEGRATION ENGINEER documented as of this encounter Care Teams Sprinkler Inspector Relationship Specialty Start [place] [address] [place] [address] PCP - General 07/21/00 03/16/20 documented as of this encounter
--- OUTSIDE RECORDS SUMMARY | 2025-08-18 11:26 | XMS_ITS | Encounter Summary ---
Author Organization [employer] Address [address] [place] [address] Care Team Providers Care Billing Control Clerk Name Role Phone Vazquez Mcleod MD Primary Care Provider Encounter Details Date Type Department Care Team (Latest Contact Info) Description 03/08/2000 Outpatient Historical [facility],[place] [address] [place] [address] Calculus of kidney (Primary Dx) Social History Tobacco Use Types Packs/Day Years Used Date Smoking Tobacco: Never Assessed Sex and Gender Information Value Date Recorded Sex Assigned at Not on file Legal Sex Male 12:36 AM VOCATIONAL EDUCATION PROFESSIONAL Gender Identity Not on file Sexual Orientation Not on file documented as of this encounter Plan of Treatment Not on file documented as of this encounter Visit Diagnoses Diagnosis Calculus of kidney- Primary documented in this encounter Additional Health Concerns Infection Onset Date Last Indicated Resolved Time R/O Respiratory 12/18/2023 12/18/2023 12/18/2023 1 0:55 PM VOCATIONAL EDUCATION PROFESSIONAL documented as of this encounter Care Teams Billing Control Clerk Relationship Specialty [place] [address] [place] [address] PCP - General 07/21/00 03/16/20 documented as of this encounter
--- OUTSIDE RECORDS SUMMARY | 2025-08-18 11:26 | XMS_ITS | Encounter Summary ---
Author Organization [employer] Address [address] [place] [address] Care Team Providers Care Stone Decorator Name Role Phone Vazquez Mcleod MD Primary Care Provider [phone] Encounter Details Date Type Department Care Team (Late st Contact Info) Description 05/25/2000 Outpatient Historical [facility] Medicine [address] [place] [phone] [place] [address] [place] [address] Social History Tobacco Use Types Packs/Day Years Used Date Smoking Tobacco: Never Assessed Sex and Gender Information Value Date Recorded Sex Assigned at Not on file Legal Sex Male 12:36 AM CORN DETASSELER MACHINE OPERATOR Gender Identity Not on file Sexual Orientation Not on file documented as of this encounter Plan of Treatment Not on file documented as of this encounter Visit Diagnoses Not on filedocumented in this encounter Additional Health Concerns Infection Onset Date Last Indicated Resolved Time R/O Respiratory 12/18/2023 12/18/2023 12/18/2023 1 0:55 PM CORN DETASSELER MACHINE OPERATOR documented as of this encounter Care Teams Stone Decorator Relationship Specialty [place] [address] [place] [address] PCP - General 07/21/00 03/16/20 documented as of this encounter
--- OUTSIDE RECORDS SUMMARY | 2025-08-18 11:26 | XMS_ITS | Encounter Summary ---
Author Organization [facility] Address [address] [place] [address] Care Team Providers Care Electrician Aircraft Name Role Phone Tawny Cooley APRN-WAITER/WAITRESS ECONOMY CLASS Primary Care Provider + Akil Figueroa MD Unavailable Reason for Visit * Reason Onset Date Comments Durable Medical Equipment 07/24/2025 Encounter Details Date Type Department Care Team ([facility] st Contact Info) Description 07/24/2025 Telephone [facility] [address] [place] [address] Tawny Cooley APRN-CNP [address] [place] [address] Durable Medical Equipment Social History [...] Sex Assigned at Male 10/21/2024 11:57 AM DRYWALL FINISHER FOREMAN Legal Sex Male 5:38 AM DRYWALL FINISHER FOREMAN Gender Identity Male 10/21/2024 11:57 AM DRYWALL FINISHER FOREMAN Sexual Orientation Straight 10/21/2024 11 :57 AM DRYWALL FINISHER FOREMAN documented as of this encounter Functional Status [...] like to get this from [facility] in [place] or Yoni Blum in [place] if unable to get from [facility]. documented in this encounter Plan of Treatment Upcoming Encounters Date Type Department Care Team (Late st Contact Info) Description 09/19/2025 8:45 AM CDT Office Visit [address] [place] [place] [phone] Tawny Cooley APRN-WAITER/WAITRESS ECONOMY CLASS [address] [place] [phone] 01/16/2026 2:45 PM DRYWALL FINISHER FOREMAN Office Visit [address] [phone] Tawny Cooley APRN-NEENA [address] [place] [address] documented as of this encounter Visit Diagnoses Not on filedocumented in this encounter Care Teams Electrician Aircraft Relationship Specialty Start Date End Date Tawny Cooley APRN-CNP PCP - General Nurse Practitioner Family 04/24/20 Akil Figueroa MD 68[address] [facility] [address] [place] [address] Urology 07/23/24 documented as of this encounter
--- OUTSIDE RECORDS SUMMARY | 2025-08-18 11:26 | XMS_ITS | Encounter Summary ---
Author Organization [facility] Address [address] [place] [address] Care Team Providers Care Chief Gauger Name Role Phone Tawny Cooley APRN-LINE PRODUCER Primary Care Provider + Akil Figueroa MD Unavailable Encounter Details Date Type Department Care Team ([facility] st Contact Info) Description 07/21/2025 Results Follow-Up [facility] Medicine [address] [place] [address] Tawny Cooley APRN-CNP [address] [place] [address] Social History Tobacco Use Types [...] Sex Assigned at Male 10/21/2024 11:57 AM CLOTH BLEACHING RANGE BACK TENDER Legal Sex Male 5:38 AM CLOTH BLEACHING RANGE BACK TENDER Gender Identity Male 10/21/2024 11:57 AM CLOTH BLEACHING RANGE BACK TENDER Sexual Orientation Straight 10/21/2024 11 :57 AM CLOTH BLEACHING RANGE BACK TENDER documented as of this encounter Functional Status [...] Description 09/19/2025 8:45 AM CDT Office Visit [address] [phone] Tawny Cooley APRN-CNP [address] [place] [phone] 01/16/2026 2:45 PM CLOTH BLEACHING RANGE BACK TENDER Office Visit [address] [phone] Tawny Cooley APRN-CNP [address] [place] [phone] documented as of this encounter Visit Diagnoses Not on filedocumented in this encounter Care Teams Chief Gauger Relationship Specialty Start Date End Date Tawny Cooley APRN-CNP PCP - General Nurse Practitioner Family 04/24/20 Akil Figueroa MD 6812 [facility] [address] [facility] 200 [place] [address] Urology 07/23/24 documented as of this encounter
[2025-08-18 11:35] LABS: Hematocrit 43.4 % (42.0-52.0); Hemoglobin 14.5 g/dL (14.0-18.0); Immature Granulocyte Percent A 0.5 % (0-0.5); Lymphocytes Absolute Auto 2.16 K/mm3 (0.9-3.2); Mean Corpuscular HGB Conc 33.4 g/dl (32-36); Mean Corpuscular Hemoglobin 28.0 pg (26-34); Mean Corpuscular Volume 83.9 fl (80-100); Nucleated Red Blood Cells Absolute Auto 0.000 K/mm3 (0.0-0.012); Nucleated Red Blood Cells Perc 0.0 % (0.0-0.2); Platelet Count Result 331 k/mm3 (150-375); Red Blood Count 5.17 M/mm3 (4.6-6.20); White Blood Count 8.3 K/mm3 (4.5-10.0)
[2025-08-18 11:42] LABS: Add Urine Microscopic? YES; Appearance Urine Cloudy (Clear); Glucose Urine UA Negative (Negative); Leukocyte Esterase Ur 3+ LEU/UL (Negative); Nitrate Urine Negative (Negative); Specific Grav Ur 1.012 (1.001-1.035)
[2025-08-18 11:59] LABS: Alanine Aminotransferase 32 U/L (6-50); Albumin Level 3.7 g/dL (3.5-5.1); Alkaline Phosphatase 97 U/L (38-126); Anion Gap 6 mmol/L (4-12); Aspartate Amino Transferase 38 U/L (17-59); Bilirubin,Total 0.2 mg/dL (0.2-1.3); Blood Urea Nitrogen 15 mg/dL (9-20); Calcium 8.7 mg/dL (8.4-10.2); Carbon Dioxide 26 mmol/L (22-30); Chloride 103 mmol/L (98-107); Estimated CRCL calculation 84 ml/min; Estimated Glomerular Filt Rate > 60; Glucose 103 mg/dL (65-110); Lipase 63 U/L (23-300); Potassium 3.8 mmol/L (3.4-5.0); Sodium 135 mmol/L (137-145); Total Protein 6.5 g/dL (6.3-8.2)
--- NOTE | 2025-08-18 12:30 | ED.ABDPAIN ---
HPI - Abdominal Pain General Chief Complaint: Back Pain/Injury Stated Complaint: back pain, recent kidney surg Time Seen by Provider: 08/18/25 11:34 Source: patient Mode of arrival: ambulatory Limitations: no limitations History of Present Illness HPI narrative: This is a 60 year old male that presents to the ER for abdominal pain. Ongoing since his lithotripsy on Monday. Reports abdominal pain, flank pain, dysuria. Denies fevers. Related Data Home Medications ?Medication ?Instructions ?Recorded ?Confirmed ?Last Taken ?Type albuterol sulfate 90 mcg/actuation 2 inh inhalation [id number] PRN 06/20/24 08/08/25 06/28/24 05:00 History aerosol inhaler Dyspnea fluticasone 250 mcg-salmeterol 50 1 inh inhalation BID 06/20/24 08/08/25 Unknown History mcg/dose blistr powdr for inhalation meloxicam 7.5 mg tablet 7.5 mg PO DAILY PRN Pain 06/20/24 08/08/25 08/01/25 History montelukast 10 mg tablet 10 mg PO HS 06/20/24 08/15/25 08/14/25 History tamsulosin 0.4 mg capsule 0.4 mg PO HS 06/20/24 08/15/25 08/14/25 History Allergies Allergy/AdvReac Type Severity Reaction Status Date / Time Iodinated Contrast Media Allergy Severe Anaphylactic Verified 08/18/25 10:55 Shock Sulfa (Sulfonamide Allergy Severe Hives Verified 08/18/25 10:55 Antibiotics) tetanus and diphtheria Allergy Severe Swelling Verified 08/18/25 10:55 toxoids Review of Systems Review of Systems: All systems reviewed & are unremarkable except as noted in HPI and below PMFSH Past Medical History Medical History (Updated 08/18/25 @ 15:35 by Dayana Vanegas PA-C) COPD (chronic obstructive pulmonary disease) Obesity History of renal stone Surgical History Surgical History (Updated 08/18/25 @ 15:35 by Dayana Vanegas PA-C) H/O nasal septoplasty H/O lithotripsy Social History Social History Smoking packs per day: 1.5 Smoking cigarettes per day: 30.0 Years smoked: 40 Smoking pack-years: 60.00 Smoking status: Current every day smoker Tobacco type: cigarettes Smoking end date: 06/17/24 Additional smoking assessment comments: Down to 1/2 pack a day, trying to quit. Alcohol intake: current Living arrangements: with family Spiritual care concerns: No Exam Narrative: GENERAL: Uncomfortable, well-nourished, and in no acute distress. HEAD: Normocephalic, atraumatic. EYES: EOMI. CHEST: Clear to auscultation. No respiratory distress. No wheezes rales or rhonchi HEART: Regular rate and rhythm. No murmur heard. Normal peripheral pulses. ABDOMEN: Soft, nondistended, normal active bowel sounds. Tender to palpation throughout the right side of the abdomen, without guarding. No CVA tenderness EXTREMITIES: Normal range of motion. No edema. SKIN: Warm, dry, no rash. NEURO: No focal deficits. Alert and oriented x3. PSYCH: Normal mood and affect Course Consultations Consultation #1: Urology consulted. Recommend Toradol 30 mg IV. Continue oral antibiotics. Prescribed pain medication. Solifenacin 5 mg daily for 10 days Date: 08/18/25 Vital Signs Vital signs: Vital Signs Temperature 97.6 F 08/18/25 10:52 Pulse Rate 88 08/18/25 10:52 Respiratory Rate 20 08/18/25 10:52 Blood Pressure 163/89 H 08/18/25 10:52 Pulse Oximetry 95 08/18/25 10:52 Oxygen Delivery Room Air 08/18/25 10:52 Temperature 97.6 F 08/18/25 10:52 Pulse Rate 87 08/18/25 13:57 Respiratory Rate 14 08/18/25 13:57 Blood Pressure 122/78 08/18/25 13:57 Pulse Oximetry 97 08/18/25 13:57 Oxygen Delivery Room Air 08/18/25 10:52 MDM - Abdominal Pain MDM Narrative Medical decision making narrative: Patient presents to the emergency department for abdominal pain, flank pain, dysuria. Recent ureteral stent placement, lithotripsy. Patient is afebrile and nontoxic appearing. His vitals are stable. Cbc without leukocytosis. Metabolic panel with normal appearing kidney function. Urine with evidence of infection, this was sent for culture. CT abdomen and pelvis with ureteral stent in place. No hydronephrosis. Given 1st dose of antibiotics IV in the ER. Urology consulted. Recommend Toradol 30 mg IV. Continue oral antibiotics. Prescribed pain medication. Solifenacin 5 mg daily for 10 days. He was given warnings to return to the ER Differential Diagnosis Differential diagnosis: Likely abdominal pain, calculus of kidney, constipation, diverticulitis and other (UTI, ureterolithiasis) Lab Data Attestation: I reviewed the patient's lab results. 08/18/25 11:27 08/18/25 11:27 Labs: Lab Results 08/18/25 Range/Units 11:27 WBC 8.3 (4.5-10.0) K/mm3 RBC 5.17 (4.6-6.20) M/mm3 Hgb 14.5 (14.0-18.0) g/dL Hct 43.4 (42.0-52.0) % MCV 83.9 (80-100) fl MCH 28.0 (26-34) pg MCHC 33.4 (32-36) g/dl RDW 14.6 H (11.5-14.5) % Plt Count 331 (150-375) k/mm3 MPV 8.7 (7.4-10.4) fl Immature Gran % (Auto) 0.5 (0-0.5) % Neut % (Auto) 59.2 (45.5-73.1) % Lymph % (Auto) 25.9 (18.3-44.2) % [place] % (Auto) 10.9 H (2.6-8.5) % Eos % (Auto) 2.9 (0-4.4) % Baso % (Auto) 0.6 (0.2-1.2) % Lymph # (Auto) 2.16 (0.9-3.2) K/mm3 [place] # (Auto) 0.9 H (0.1-0.6) K/mm3 Eos # (Auto) 0.2 (0-0.3) K/mm3 Baso # (Auto) 0.1 (0.0-0.1) K/mm3 Abs Immat Gran (auto) 0.04 H (0.00-0.031) K/mm3 Absolute Neuts (auto) 4.9 (1.3-6.7) K/mm3 Absolute Nucleated RBC 0.000 (0.0-0.012) K/mm3 Nucleated RBC % 0.0 (0.0-0.2) % Sodium 135 L (137-145) mmol/L Potassium 3.8 (3.4-5.0) mmol/L Chloride 103 (98-107) mmol/L Carbon Dioxide 26 (22-30) mmol/L Anion Gap 6 (4-12) mmol/L BUN 15 (9-20) mg/dL Creatinine 0.88 (0.7-1.3) mg/dL Estim Creat Clear Calc 84 ml/min Estimated GFR > 60 (59 - ) Glucose 103 (65-110) mg/dL Calcium 8.7 (8.4-10.2) mg/dL Total Bilirubin 0.2 (0.2-1.3) mg/dL AST 38 (17-59) U/L ALT 32 (6-50) U/L Alkaline Phosphatase 97 (38-126) U/L Total Protein 6.5 (6.3-8.2) g/dL Albumin 3.7 (3.5-5.1) g/dL Lipase 63 (23-300) U/L Urine Color Other (Yellow) Urine Appearance Cloudy H (Clear) Urine pH 6.0 (5.0-9.0) Ur Specific [place] 1.012 (1.001-1.035) Urine Protein 2+ H (Negative) mg/dL Urine Glucose (UA) Negative (Negative) mg/dL Urine Ketones Negative (Negative) mg/dL Ur Blood (Man) 3+ H (Negative) Urine Nitrate Negative (Negative) Urine Bilirubin Negative (Negative) Urine Urobilinogen 0.2 (<2.0) mg/dL Leukocyte Esterase Rfl 3+ H (Negative) BUBBA/UL Urine RBC >100 H (0-2) /hpf Urine WBC 21-50 H (0-3) /hpf Ur Squamous Epith Cells None seen (Few) /hpf Urine Bacteria None seen /hpf Urine Casts 3-5 Imaging Data Radiologist's impression: ITS Impressions Abdomen X-Ray 08/18/25 12:48 IMPRESSION: 1. Right double-J ureteral stent in place. 2. Bilateral renal stones persist. Abdomen/Pelvis CT 08/18/25 12:51 IMPRESSION: 1. Right kidney double-J ureteral stent in place. No hydronephrosis. 2. Bilateral nephrolithiasis. Critical Care Time Critical Care Time Critical Care Time: No Discharge Plan Discharge Clinical Impression: Acute UTI, S/P ureteral stent placement Patient Disposition: Home Condition: Stable Instructions: Antibiotic Form, Urinary Tract Infection in Men (ED), Ureteral Stent Placement (DC) Additional Instructions: Return to the ER if you experience fever, abdominal pain with nausea and vomiting, you are unable to keep down liquids or solids, or any other symptoms that are concerning to you Remain well hydrated. Over the counter pain medication as needed. Prescribed pain medication as needed. Take oral antibiotic as prescribed Follow up with your urologist Patient Language: Bahamian Prescriptions: New hydrocodone-acetaminophen 5-325 mg tablet 1 tablet PO Q6H PRN (Reason: pain) Qty: 20 0RF cephalexin 500 mg capsule 500 mg PO Q12H 7 Days Qty: 14 0RF solifenacin 5 mg tablet 5 mg PO DAILY 10 Days Qty: 10 0RF No Action hydrocodone-acetaminophen 5-325 mg tablet 1 - 2 tablet PO Q6H PRN (Reason: pain) Qty: 20 0RF fluticasone propion-salmeterol 250-50 mcg/dose blister with device 1 inh INHALATION BID meloxicam 7.5 mg tablet 7.5 mg PO DAILY PRN (Reason: Pain) tamsulosin 0.4 mg capsule 0.4 mg PO HS montelukast 10 mg tablet 10 mg PO HS albuterol sulfate 90 mcg/actuation HFA aerosol inhaler 2 inh INHALATION [id number] PRN (Reason: Dyspnea) Follow-up/Referrals: Tawny Cooley [Other] Holden Figueroa MD [Physician, Urology]
[2025-08-18] MEDS: ONDANSETRON INJ 4 MG/2 ML VIAL IV PUSH (12:33)
[2025-08-18] MEDS: MORPHINE SULFATE (*CRX) 4 MG/ML INJ IV PUSH ×2 (12:34→14:50)
[2025-08-18 13:57] VITALS: BP 122/78; PULSE 87; RESP 14; O2SAT 97
[2025-08-18] MEDS: cefTRIAXone 1 GM in SODIUM CHLORIDE 0.9% IV 50 ML 100 ML IVPB (14:34)
--- NOTE | 2025-08-18 14:35 | WPDURCON ---
Assessment and Plan Assessment and plan (1) Dysuria: Code(s): R30.0 - Dysuria Status: Acute (2) Ureteral stent present: Code(s): Z96.0 - Presence of urogenital implants Status: Acute (3) Nephrolithiasis: Code(s): N20.0 - Calculus of kidney Status: Acute Plan Pt is a 60 year old M with Hx of nephrolithiasis s/p Right ESWL and Right ureteral stent placement (08/15/2025) presenting to the ED for flank pain, abdominal pain and dysuria. - UA concerning for UTI; UCx pending. Discharge on empiric Abx. - Flank/abdominal pain consistent with stent symptoms. Continue tamsulosin as prescribed. - Given significant pain recommend Toradol 30 mg. Can be discharged home with tramadol x 3 days. - Irritative voiding symptoms likely related to distal stent and pt may benefit from short course of solifenacin 5 mg x 10 days - Push PO fluids; recommend daily bowel regimen to mitigate constipation - Scheduled for outpatient follow up with Dr. Figueroa on 08/26/2025 Urology Consult Note HPI Date Seen: 08/18/25 Primary Care Provider: Tawny Cooley Consult Narrative Narrative: Pt is a 60 year old M with extensive Hx of nephrolithiasis requiring multiple procedures most recently s/p Right ESWL with Right ureteral stent placement (08/15/2025, Dr. Figueroa) who presents to the ED for abdominal pain, flank pain and dysuria. Pt states that since his discharge pt has continued to experience significant dysuria, frequency, urgency, gross hematuria with rare UUI and Right flank pain which is aggravated by voiding. Patient discharged on [place] which he states has minimally improved his pain; only has 3 tabs left. Denies stranguria, weak stream, incomplete emptying. Has only required a ureteral stent for one prior stone surgery and reports similar symptoms at that time. Review of Systems Constitutional: Constitutional: Denies chills and Denies fatigue ENT: Reports Normal hearing present Cardiovascular: Cardiovascular: Denies chest pain and Denies diaphoresis Respiratory: Respiratory: Denies cough and Denies dyspnea Gastrointestinal: Gastrointestinal: Reports abdominal pain, Denies constipation, Denies nausea and Denies vomiting Genitourinary: Genitourinary: Reports hematuria, Reports dysuria, Reports flank pain, Reports urinary frequency and Reports urinary urgency Neurologic: Denies Abnormal speech present and Denies confusion [facility] Past Medical History Medical History (Updated 08/18/25 @ 14:46 by SHEILA Leong) COPD (chronic obstructive pulmonary disease) Obesity History of renal stone Surgical History Surgical History (Updated 08/15/25 @ 08:59 by Ashu Bright MD) H/O nasal septoplasty H/O lithotripsy Social History Social History Smoking packs per day: 1.5 Smoking cigarettes per day: 30.0 Years smoked: 40 Smoking pack-years: 60.00 Smoking status: Current every day smoker Tobacco type: cigarettes Smoking end date: 06/17/24 Additional smoking assessment comments: Down to 1/2 pack a day, trying to quit. Alcohol intake: current Living arrangements: with family Spiritual care concerns: No Meds Home Medications and Allergies Home Medications ?Medication ?Instructions ?Recorded ?Confirmed ?Type albuterol sulfate 90 mcg/actuation 2 inh inhalation [id number] PRN 06/20/24 08/08/25 History aerosol inhaler Dyspnea fluticasone 250 mcg-salmeterol 50 1 inh inhalation BID 06/20/24 08/08/25 History mcg/dose blistr powdr for inhalation meloxicam 7.5 mg tablet 7.5 mg PO DAILY PRN Pain 06/20/24 08/08/25 History montelukast 10 mg tablet 10 mg PO HS 06/20/24 08/15/25 History tamsulosin 0.4 mg capsule 0.4 mg PO HS 06/20/24 08/15/25 History hydrocodone 5 mg-acetaminophen 325 1 - 2 tablet PO Q6H PRN pain #20 08/15/25 Rx mg tablet tabs Allergies Allergy/AdvReac Type Severity Reaction Status Date / Time Iodinated Contrast Media Allergy Severe Anaphylactic Verified 08/18/25 10:55 Shock Sulfa (Sulfonamide Allergy Severe Hives Verified 08/18/25 10:55 Antibiotics) tetanus and diphtheria Allergy Severe Swelling Verified 08/18/25 10:55 toxoids Vital Signs Vital Signs - 24 hr 08/18/25 10:52 08/18/25 13:57 Temperature 36.4 C Pulse Rate 88 87 Respiratory Rate 20 14 Blood Pressure 163/89 H 122/78 Pulse Oximetry 95 97 Oxygen Delivery Room Air Results Labs 08/18/25 11:27 08/18/25 11:27 Labs: Short CBC 08/18/25 Range/Units 11:27 WBC 8.3 (4.5-10.0) K/mm3 Hgb 14.5 (14.0-18.0) g/dL Hct 43.4 (42.0-52.0) % Plt Count 331 (150-375) k/mm3 BMP 08/18/25 11:27 Sodium 135 L Potassium 3.8 Chloride 103 Carbon Dioxide 26 BUN 15 Creatinine 0.88 Glucose 103 Calcium 8.7 Liver Function 08/18/25 Range/Units 11:27 Total Bilirubin 0.2 (0.2-1.3) mg/dL AST 38 (17-59) U/L ALT 32 (6-50) U/L Alkaline Phosphatase 97 (38-126) U/L Albumin 3.7 (3.5-5.1) g/dL Urine 08/18/25 Range/Units 11:27 Urine Color Other (Yellow) Urine Appearance Cloudy H (Clear) Urine pH 6.0 (5.0-9.0) Ur Specific [place] 1.012 (1.001-1.035) Urine Protein 2+ H (Negative) mg/dL Urine Glucose (UA) Negative (Negative) mg/dL
[2025-08-18] MEDS: KETOROLAC 30 MG/ML VIAL (*BKC) IV PUSH (15:44)
[2025-08-18 15:53] VITALS: BP 146/95; PULSE 86; RESP 14; O2SAT 99
== END 2025-08-18 16:00 | disposition home or self-care (01) ==
PROVIDERS: Emergency Provider Physician Assistant
DX: N39.0 Urinary tract infection, site not specified (principal); N20.0 Calculus of kidney; Z96.0 Presence of urogenital implants; F17.210 Nicotine dependence, cigarettes, uncomplicated
CPT/HCPCS: 36415; 74018; 74176; 80053; 81001; 83690; 85025; 87086; 96365; 96375; 96376; 99284; J0696; J1885; J2270; J2405

== ENCOUNTER 2025-08-25 15:33 | Outpatient (CLI) | payer OTHER, SELFPAY ==
--- NOTE | ~2025-08-25 | XR_ITS ---
EXAMINATION: XR abdomen/kub 1V, 08/25/2025 15:45 CDT HISTORY: Calcium kidney stone COMPARISON: No comparisons available. Technique: 3 view. Findings: Bowel gas pattern unremarkable. No obstruction. Left renal calculi the largest mid pole 3 x 4 mm. No acute osseous abnormality. Right-sided ureteral stent with calculi in the right kidney the largest in the mid pole 5 x 6 mm. Impression: 1. Renal calculi detailed above Reviewed, dictated and finalized at location P. Impression: 1. Renal calculi detailed above
--- OUTSIDE RECORDS SUMMARY | 2025-08-25 16:00 | XMS_ITS | Clinical Summary ---
Author Organization [facility] Address [address] [place] [address] Phone Care Team Providers Care Gun Examiner Name Role Phone Unavailable Primary Care Provider [...] on file Legal Sex Male 12:36 AM PAYABLE REPRESENTATIVE Gender Identity Not on file Sexual Orientation Not on file Last Filed Vital Signs Vital Sign Reading Time Taken Comments Blood Pressure 149/86 12/20/2023 12:07 PM PAYABLE REPRESENTATIVE Pulse 91 12/20/2023 12:07 PM PAYABLE REPRESENTATIVE Temperature 36.6 C (97.9 F) 12/20/2023 12:07 PM PAYABLE REPRESENTATIVE Respiratory Rate 18 12/20/2023 12:07 PM PAYABLE REPRESENTATIVE Oxygen Saturation 99% 12/20/2023 12:07 PM PAYABLE REPRESENTATIVE Inhaled Oxygen Concentration - - Weight 83 kg (183 lb) 12/18/2023 8:21 PM PAYABLE REPRESENTATIVE Height 165.1 cm (5' 5) 12/18/2023 8:21 PM PAYABLE REPRESENTATIVE Body Mass Index 30.45 12/18/2023 8:21 PM PAYABLE REPRESENTATIVE Plan of Treatment Health Maintenance Due Date Last Done Comments DTAP/TDAP/TD VACCINES (1 - Tdap) 1985 HEPATITIS B VACCINES (1 of 3 - 19+ 3-dose series) 03/20 COLORECTAL SCREENING 2011 Colorectal Cancer Screening 2011 FIT-DNA Q 3 years 2011 FIT/FOBT Q 1 year 2011 Flex Sig/CT Colonography Q 5 years 2011 ZOSTER VACCINE (1 of 2) 2016 INFLUENZA VACCINE (#1) 2025 09/09/2021 Insurance [employer] [facility] [place] [id number] [employer] Advance Directives For more information, please contact: [phone] * Full Code (Latest Code Status on File) Date Activated Date Inactivated Comments 12/20/2023 8:19 AM 12/20/2023 3:34 PM * Full Code Date Activated Date Inactivated Comments 04/27/2010 3:13 AM 05/03/2010 3:39 PM * Full Code Date Activated Date Inactivated Comments 04/26/2010 11:50 PM 04/27/2010 3:13 AM
--- OUTSIDE RECORDS SUMMARY | 2025-08-25 16:01 | XMS_ITS | Clinical Summary ---
Author Organization [facility] Address [facility] [place] [address] Care Team Providers Care Chart Collector Name Role Phone Unavailable Primary Care Provider [...] Vaccine ( - 2023-2 5 season) 2025 Influenza Adult (#1) 2025 09/09/2021 Meningococcal B Vaccine Aged Out No l onger eligible based on patient's age to complete this topic Meningococcal Vaccine Aged Out No iesha shmuel eligible based on patient's age to complete this topic RSV Immunizations Under 20 Months Aged Out No longer eligible based on patient's age to complete this topic Insurance [facility]
--- OUTSIDE RECORDS SUMMARY | 2025-08-25 16:01 | XMS_ITS | Encounter Summary ---
Author Organization [facility] Address [address] [place] [address] Care Team Providers Care Customer Service Security Officer Name Role Phone Ligiaeugenia Tawny KNAPP-TUTOR Primary Care Provider + Akil Figueroa MD Unavailable Encounter Details Date Type Department Care Team (Late st Contact Info) Description 06/28/2024 Op/Procedure Report External [facility] Information [address] [place] [phone] Document, Scanned Social History Tobacco Use Types Packs/Day Years Used Date Smoking Tobacco: Every Day Cigarettes 0.3 39.8 Started: 1984 Smokeless Tobacco: Never Alcohol Use [...] Sex Assigned at Male 10/21/2024 11:57 AM SPECTROGRAPH OPERATOR Legal Sex Male 5:38 AM SPECTROGRAPH OPERATOR Gender Identity Male 10/21/2024 11:57 AM SPECTROGRAPH OPERATOR Sexual Orientation Straight 10/21/2024 11 :57 AM SPECTROGRAPH OPERATOR documented as of this encounter Functional Status [...] Entry Date Author No 04/08/2020 4:06 PM Yaiml Kirkland RN documented in this encounter Plan of Treatment Upcoming Encounters Date Type Department Care Team (Late st Contact Info) Description 09/19/2025 8:45 AM CDT Office Visit [address] [phone] Tawny Cooley APRN-CNP [address] [place] [phone] 01/16/2026 2:45 PM SPECTROGRAPH OPERATOR Office Visit [address] [phone] Tawny Cooley APRN-CNP [address] [place] [phone] documented as of this encounter Visit Diagnoses Not on filedocumented in this encounter Additional Health Concerns Infection Onset Date Last Indicated Resolved Time COVID-19 Under Investigation 12/04/2024 12/04/2024 12/04/2024 2:14 PM SPECTROGRAPH OPERATOR documented as of this encounter Care Teams Customer Service Security Officer Relationship Specialty Start Date End Date Tawny Cooley APRN-CNP PCP - General Nurse Practitioner Family 04/24/20 Akil Figueroa MD [address] [facility] [address] [facility] [address] [place] [address] Urology 07/23/24 documented as of this encounter
--- OUTSIDE RECORDS SUMMARY | 2025-08-25 16:02 | XMS_ITS | Encounter Summary ---
Author Organization [facility] Address [address] [place] [address] Care Team Providers Care Autocad Detailer Name Role Phone Vazquez Mcleod MD Primary Care Provider [phone] Encounter Details Date Type Department Care Team (Latest Contact Info) Description 03/08/2000 Outpatient Historical [facility],[place] [address] [place] [address] Calculus of kidney (Primary Dx) Social History Tobacco Use Types Packs/Day Years Used Date Smoking Tobacco: Never Assessed Sex and Gender Information Value Date Recorded Sex Assigned at Not on file Legal Sex Male 12:36 AM CULINARY ARTIST Gender Identity Not on file Sexual Orientation Not on file documented as of this encounter Plan of Treatment Not on file documented as of this encounter Visit Diagnoses Diagnosis Calculus of kidney- Primary documented in this encounter Additional Health Concerns Infection Onset Date Last Indicated Resolved Time R/O Respiratory 12/18/2023 12/18/2023 12/18/2023 1 0:55 PM CULINARY ARTIST documented as of this encounter Care Teams Autocad Detailer Relationship Specialty [place] [address] [place] [address] PCP - General 07/21/00 03/16/20 documented as of this encounter
--- OUTSIDE RECORDS SUMMARY | 2025-08-25 16:02 | XMS_ITS | Encounter Summary ---
Author Organization [facility] Address [address] [place] [address] Care Team Providers Care Sewer Contractor Name Role Phone Vazquez Mcleod MD Primary Care Provider Encounter Details Date Type Department Care Team (Late st Contact Info) Description 06/03/1999 Outpatient Historical [facility] Medicine [address] [place] [phone] [place] [address] [place] [address] Social History Tobacco Use Types Packs/Day Years Used Date Smoking Tobacco: Never Assessed Sex and Gender Information Value Date Recorded Sex Assigned at Not on file Legal Sex Male 12:36 AM KEYPUNCH OPERATOR Gender Identity Not on file Sexual Orientation Not on file documented as of this encounter Plan of Treatment Not on file documented as of this encounter Visit Diagnoses Not on filedocumented in this encounter Additional Health Concerns Infection Onset Date Last Indicated Resolved Time R/O Respiratory 12/18/2023 12/18/2023 12/18/2023 1 0:55 PM KEYPUNCH OPERATOR documented as of this encounter Care Teams Sewer Contractor Relationship Specialty Start [place] [address] [place] [address] PCP - General 07/21/00 03/16/20 documented as of this encounter
--- OUTSIDE RECORDS SUMMARY | 2025-08-25 16:02 | XMS_ITS | Encounter Summary ---
Author Organization [facility] Address [address] [place] [address] Care Team Providers Care Car Repairer Helper Name Role Phone Vazquez Mcleod MD Primary Care Provider [phone] Encounter Details Date Type Department Care Team (Late st Contact Info) Description 03/07/2000 Outpatient Historical [facility] Medicine [address] [place] [phone] [place] [address] [place] [address] Social History Tobacco Use Types Packs/Day Years Used Date Smoking Tobacco: Never Assessed Sex and Gender Information Value Date Recorded Sex Assigned at Not on file Legal Sex Male 12:36 AM PRINCIPAL CLOUD ARCHITECT Gender Identity Not on file Sexual Orientation Not on file documented as of this encounter Plan of Treatment Not on file documented as of this encounter Visit Diagnoses Not on filedocumented in this encounter Additional Health Concerns Infection Onset Date Last Indicated Resolved Time R/O Respiratory 12/18/2023 12/18/2023 12/18/2023 1 0:55 PM PRINCIPAL CLOUD ARCHITECT documented as of this encounter Care Teams Car Repairer Helper Relationship Specialty Start [place] [address] [place] [address] PCP - General 07/21/00 03/16/20 documented as of this encounter
--- OUTSIDE RECORDS SUMMARY | 2025-08-25 16:02 | XMS_ITS | Encounter Summary ---
Author Organization [employer] Address [address] [place] [address] Care Team Providers Care Freezer Person Name Role Phone Vazquez Mcleod MD Primary Care Provider [phone] Encounter Details Date Type Department Care Team (Late st Contact Info) Description 09/26/2000 Emergency [facility] Monica Arana MD [address] [place] [address] [place] [address] Er, Authorized P NO ADDRESS ON FILE Renal colic (Primary Dx) Social History Tobacco Use Types Packs/Day Years Used Date Smoking Tobacco: Never Assessed Sex and Gender Information Value Date Recorded Sex Assigned at Not on file Legal Sex Male 12:36 AM SOCIAL MEDIA DIRECTOR Gender Identity Not on file Sexual Orientation Not on file documented as of this encounter Plan of Treatment Not on file documented as of this encounter Visit Diagnoses Diagnosis Renal colic- Primary documented in this encounter Additional Health Concerns Infection Onset Date Last Indicated Resolved Time R/O Respiratory 12/18/2023 12/18/2023 12/18/2023 1 0:55 PM SOCIAL MEDIA DIRECTOR documented as of this encounter Care Teams Freezer Person Relationship Specialty Start [place] [address] [place] [phone] PCP - General 07/21/00 03/16/20 documented as of this encounter
--- OUTSIDE RECORDS SUMMARY | 2025-08-25 16:02 | XMS_ITS | Encounter Summary ---
Author Organization [employer] Address [address] [place] [address] Care Team Providers Care Branch Operations Specialist Name Role Phone Vazquez Mcleod MD Primary Care Provider [phone] Encounter Details Date Type Department Care Team (Late st Contact Info) Description 10/06/1999 Outpatient Historical [facility] Medicine [address] [place] [phone] Anastacio Gutierrez MD NO ADDRESS ON FILE Social History Tobacco Use Types Packs/Day Years Used Date Smoking Tobacco: Never Assessed Sex and Gender Information Value Date Recorded Sex Assigned at Not on file Legal Sex Male 12:36 AM FUNDER Gender Identity Not on file Sexual Orientation Not on file documented as of this encounter Plan of Treatment Not on file documented as of this encounter Visit Diagnoses Not on filedocumented in this encounter Additional Health Concerns Infection Onset Date Last Indicated Resolved Time R/O Respiratory 12/18/2023 12/18/2023 12/18/2023 1 0:55 PM FUNDER documented as of this encounter Care Teams Branch Operations Specialist Relationship Specialty [place] [address] [place] [phone] PCP - General 07/21/00 03/16/20 documented as of this encounter
--- OUTSIDE RECORDS SUMMARY | 2025-08-25 16:02 | XMS_ITS | Encounter Summary ---
Author Organization [facility] Address [address] [place] [address] Care Team Providers Care Statistical Methods Professor Name Role Phone Tawny Cooley Primary Care Provider + Akil Figueroa MD Unavailable Reason for Visit * Reason Onset Date Comments Results 07/30/2025 Encounter Details Date Type Department Care Team ([facility] Contact Info) Description 07/30/2025 Results [facility] Medicine [address] [place] [address] Tawny Cooley APRN-CNP [address] [place] [address] Results Social History Tobacco Use Types Packs/Day Years Used Date Smoking Tobacco: Every Day Cigarettes 0.3 39.8 Started: 1984 Smokeless Tobacco: Never Comments:Smoke and [...] Sex Assigned at Male 10/21/2024 11:57 AM PSYCHOLOGICAL OPERATIONS SPECIALIST Legal Sex Male 5:38 AM PSYCHOLOGICAL OPERATIONS SPECIALIST Gender Identity Male 10/21/2024 11:57 AM PSYCHOLOGICAL OPERATIONS SPECIALIST Sexual Orientation Straight 10/21/2024 11 :57 AM PSYCHOLOGICAL OPERATIONS SPECIALIST documented as of this encounter Functional Status [...] the possibility of the steroid injection. # [phone] for Luca documented in this encounter Plan of Treatment Upcoming Encounters Date Type Department Care Team (Late st Contact Info) Description 09/19/2025 8:45 AM CDT Office Visit [address] [phone] Tawny Cooley LETTERPRESS PRINTING MACHINIST-SOLE CUTTER [address] [place] [address] 01/16/2026 2:45 PM PSYCHOLOGICAL OPERATIONS SPECIALIST Office Visit [address] [address] Tawny Cooley APRN-SOLE CUTTER [address] [place] [phone] documented as of this encounter Visit Diagnoses Not on filedocumented in this encounter Care Teams Statistical Methods Professor Relationship Specialty Start Date End Date Tawny Cooley APRN-SOLE CUTTER PCP - General Nurse Practitioner Family 04/24/20 Akil Figueroa MD [address] [facility] 162 [facility] [address] [place] [address] Urology 07/23/24 documented as of this encounter
--- OUTSIDE RECORDS SUMMARY | 2025-08-25 16:02 | XMS_ITS | Encounter Summary ---
Author Organization [employer] Address [address] [place] [address] Care Team Providers Care Retail Coordinator Name Role Phone Vazquez Mcleod MD Primary Care Provider [phone] Encounter Details Date Type Department Care Team (Late st Contact Info) Description 04/11/2000 Outpatient Historical [facility] Medicine [address] [place] [phone] [place] [address] [place] [address] Social History Tobacco Use Types Packs/Day Years Used Date Smoking Tobacco: Never Assessed Sex and Gender Information Value Date Recorded Sex Assigned at Not on file Legal Sex Male 12:36 AM SAWMILL PRODUCTION WORKER Gender Identity Not on file Sexual Orientation Not on file documented as of this encounter Plan of Treatment Not on file documented as of this encounter Visit Diagnoses Not on filedocumented in this encounter Additional Health Concerns Infection Onset Date Last Indicated Resolved Time R/O Respiratory 12/18/2023 12/18/2023 12/18/2023 1 0:55 PM SAWMILL PRODUCTION WORKER documented as of this encounter Care Teams Retail Coordinator Relationship Specialty Start [place] [address] [place] [address] PCP - General 07/21/00 03/16/20 documented as of this encounter
--- OUTSIDE RECORDS SUMMARY | 2025-08-25 16:02 | XMS_ITS | Encounter Summary ---
Author Organization [facility] Address [address] [place] [address] Care Team Providers Care Advertising Coordinator Name Role Phone Ligiaeugenia Tawny KNAPP-SENIOR ACCOUNTING ANALYST Primary Care Provider + Akil Figueroa MD Unavailable Encounter Details Date Type Department Care Team ([facility] st Contact Info) Description 08/19/2022 Op/Procedure Report External [facility] [address] [place] [phone] Document, Scanned Social History Tobacco Use Types Packs/Day Years Used Date Smoking Tobacco: Every Day Cigarettes 0.5 39.8 Started: 1985 Smokeless Tobacco: Never Alcohol [...] Assigned at Male 10/21/2024 11:57 AM CHAIR MENDER Legal Sex Male 5:38 AM CHAIR MENDER Gender Identity Male 10/21/2024 11:57 AM CHAIR MENDER Sexual Orientation Straight 10/21/2024 11 :57 AM CHAIR MENDER COVID-19 Exposure Response Date Recorded In the [...] Description 09/19/2025 8:45 AM CDT Office Visit [address] [phone] Tawny Cooley APRN-CNP [address] [place] [phone] 01/16/2026 2:45 PM CHAIR MENDER Office Visit [address] [phone] Tawny Cooley APRN-CNP [address] [place] [phone] documented as of this encounter Visit Diagnoses Not on filedocumented in this encounter Additional Health Concerns Infection Onset Date Last Indicated Resolved Time COVID-19 Under Investigation 12/04/2024 12/04/2024 12/04/2024 2:14 PM CHAIR MENDER documented as of this encounter Care Teams Advertising Coordinator Relationship Specialty Start Date End Date Tawny Cooley APRN-NEENA PCP - General Nurse Practitioner Family 04/24/20 Akil Figueroa MD [address] [facility] 162 [facility] 200 [place] [address] Urology 07/23/24 documented as of this encounter
--- OUTSIDE RECORDS SUMMARY | 2025-08-25 16:02 | XMS_ITS | Encounter Summary ---
Author Organization [employer] Address [address] [place] [address] Care Team Providers Care System Consultant Name Role Phone Vazquez Mcleod MD Primary Care Provider [phone] Encounter Details Date Type Department Care Team (Late st Contact Info) Description 10/06/1999 Outpatient Historical [facility] Social History Tobacco Use Types Packs/Day Years Used Date Smoking Tobacco: Never Assessed Sex and Gender Information Value Date Recorded Sex Assigned at Not on file Legal Sex Male 12:36 AM AUTOMATIC WINDER OPERATOR Gender Identity Not on file Sexual Orientation Not on file documented as of this encounter Plan of Treatment Not on file documented as of this encounter Visit Diagnoses Not on filedocumented in this encounter Additional Health Concerns Infection Onset Date Last Indicated Resolved Time R/O Respiratory 12/18/2023 12/18/2023 12/18/2023 1 0:55 PM AUTOMATIC WINDER OPERATOR documented as of this encounter Care Teams System Consultant Relationship Specialty [place] [address] [place] [address] PCP - General 07/21/00 03/16/20 documented as of this encounter
--- OUTSIDE RECORDS SUMMARY | 2025-08-25 16:02 | XMS_ITS | Encounter Summary ---
Author Organization [employer] Address [address] [place] [address] Care Team Providers Care Civil Division Deputy Sheriff Name Role Phone Vaqzuez Mcleod MD Primary Care Provider [phone] Encounter Details Date Type Department Care Team (Late st Contact Info) Description 07/18/2000 Outpatient Historical [facility] Medicine [address] [place] [phone] [place] [address] [place] [address] Social History Tobacco Use Types Packs/Day Years Used Date Smoking Tobacco: Never Assessed Sex and Gender Information Value Date Recorded Sex Assigned at Not on file Legal Sex Male 12:36 AM WHEEL BRAIDER Gender Identity Not on file Sexual Orientation Not on file documented as of this encounter Plan of Treatment Not on file documented as of this encounter Visit Diagnoses Not on filedocumented in this encounter Additional Health Concerns Infection Onset Date Last Indicated Resolved Time R/O Respiratory 12/18/2023 12/18/2023 12/18/2023 1 0:55 PM WHEEL BRAIDER documented as of this encounter Care Teams Civil Division Deputy Sheriff Relationship Specialty Start [place] [address] [place] [address] PCP - General 07/21/00 03/16/20 documented as of this encounter
--- OUTSIDE RECORDS SUMMARY | 2025-08-25 16:02 | XMS_ITS | Encounter Summary ---
Author Organization [employer] Address [address] [place] [address] Care Team Providers Care Consulting Intern Name Role Phone Vazquez Mcleod MD Primary Care Provider [phone] Encounter Details Date Type Department Care Team (Late st Contact Info) Description 03/21/2000 Outpatient Historical [facility] Medicine 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
--- OUTSIDE RECORDS SUMMARY | 2025-08-25 16:02 | XMS_ITS | Encounter Summary ---
Author Organization [employer] Address [address] [place] [address] Care Team Providers Care Laboratory Monitor Name Role Phone Vazquez Mcleod MD Primary Care Provider [phone] Encounter Details Date Type Department Care Team (Late st Contact Info) Description 05/16/2000 Outpatient Historical [facility] Medicine [address] [place] [phone] [place] [address] [place] [address] Social History Tobacco Use Types Packs/Day Years Used Date Smoking Tobacco: Never Assessed Sex and Gender Information Value Date Recorded Sex Assigned at Not on file Legal Sex Male 12:36 AM CORPORATION OFFICER Gender Identity Not on file Sexual Orientation Not on file documented as of this encounter Plan of Treatment Not on file documented as of this encounter Visit Diagnoses Not on filedocumented in this encounter Additional Health Concerns Infection Onset Date Last Indicated Resolved Time R/O Respiratory 12/18/2023 12/18/2023 12/18/2023 1 0:55 PM CORPORATION OFFICER documented as of this encounter Care Teams Laboratory Monitor Relationship Specialty [place] [address] [place] [address] PCP - General 07/21/00 03/16/20 documented as of this encounter
--- OUTSIDE RECORDS SUMMARY | 2025-08-25 16:02 | XMS_ITS | Encounter Summary ---
Author Organization [employer] Address [address] [place] [address] Care Team Providers Care Business Services Manager Name Role Phone Vazquez Mcleod MD Primary Care Provider [phone] Encounter Details Date Type Department Care Team (Late st Contact Info) Description 12/30/1999 Outpatient Historical [facility] Medicine [address] [place] [phone] [place] [address] [place] [address] Social History Tobacco Use Types Packs/Day Years Used Date Smoking Tobacco: Never Assessed Sex and Gender Information Value Date Recorded Sex Assigned at Not on file Legal Sex Male 12:36 AM PUBLIC INFORMATION DIRECTOR Gender Identity Not on file Sexual Orientation Not on file documented as of this encounter Plan of Treatment Not on file documented as of this encounter Visit Diagnoses Not on filedocumented in this encounter Additional Health Concerns Infection Onset Date Last Indicated Resolved Time R/O Respiratory 12/18/2023 12/18/2023 12/18/2023 1 0:55 PM PUBLIC INFORMATION DIRECTOR documented as of this encounter Care Teams Business Services Manager Relationship Specialty Start [place] [address] [place] [address] PCP - General 07/21/00 03/16/20 documented as of this encounter
--- OUTSIDE RECORDS SUMMARY | 2025-08-25 16:02 | XMS_ITS | Encounter Summary ---
Author Organization [employer] Address [address] [place] [address] Care Team Providers Care Customer Service Administrator Name Role Phone Vazquez Mcleod MD Primary Care Provider [phone] Encounter Details Date Type Department Care Team (Late st Contact Info) Description 03/11/1999 Outpatient Historical [facility] Medicine 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 Gender Identity Not on file Sexual Orientation Not on file documented as of this encounter Plan of Treatment Not on file documented as of this encounter Visit Diagnoses Not on filedocumented in this encounter Additional Health Concerns Infection Onset Date Last Indicated Resolved Time R/O Respiratory 12/18/2023 12/18/2023 12/18/2023 1 0:55 PM SEASONAL DELIVERY DRIVER documented as of this encounter Care Teams Customer Service Administrator Relationship Specialty Start [place] [address] [place] [address] PCP - General 07/21/00 03/16/20 documented as of this encounter
--- OUTSIDE RECORDS SUMMARY | 2025-08-25 16:02 | XMS_ITS | Encounter Summary ---
Author Organization [facility] Address [address] [place] [address] Care Team Providers Care Patient Sitter Name Role Phone Tawny Cooley APRN-HIV COUNSELOR Primary Care Provider + Akil Figueroa MD Unavailable Reason for Visit * Reason Onset Date Comments Durable Medical Equipment 07/24/2025 Encounter Details Date Type Department Care Team ([facility] st Contact Info) Description 07/24/2025 Telephone [facility] [address] [place] [address] Tawny Cooley APRN-CNP [address] [place] [address] Durable Medical Equipment Social History [...] Sex Assigned at Male 10/21/2024 11:57 AM AU PAIR Legal Sex Male 5:38 AM AU PAIR Gender Identity Male 10/21/2024 11:57 AM AU PAIR Sexual Orientation Straight 10/21/2024 11 :57 AM AU PAIR documented as of this encounter Functional Status [...] like to get this from [facility] in [place] or Yoni Blum in [place] if unable to get from [place]. documented in this encounter Plan of Treatment Upcoming Encounters Date Type Department Care Team (Late st Contact Info) Description 09/19/2025 8:45 AM CDT Office Visit [place] [address] [place] [phone] Tawny Cooley APRN-HIV COUNSELOR [address] [place] [address] 01/16/2026 2:45 PM AU PAIR Office Visit [address] [phone] Tawny Cooley APRN-NEENA [address] [place] [address] documented as of this encounter Visit Diagnoses Not on filedocumented in this encounter Care Teams Patient Sitter Relationship Specialty Start Date End Date Tawny Cooley APRN-CNP PCP - General Nurse Practitioner Family 04/24/20 Akil Figueroa MD [address] [facility] [address] [place] [address] Urology 07/23/24 documented as of this encounter
--- OUTSIDE RECORDS SUMMARY | 2025-08-25 16:02 | XMS_ITS | Encounter Summary ---
Author Organization [employer] Address [address] [place] [address] Care Team Providers Care Animal Biologist Name Role Phone Vazquez Mcleod MD Primary Care Provider [phone] Encounter Details Date Type Department Care Team (Late st Contact Info) Description 02/10/2000 Outpatient Historical [facility] Medicine [address] [place] [phone] [place] [address] [place] [address] Social History Tobacco Use Types Packs/Day Years Used Date Smoking Tobacco: Never Assessed Sex and Gender Information Value Date Recorded Sex Assigned at Not on file Legal Sex Male 12:36 AM AOC AIRSPACE CONTROL OFFICER Gender Identity Not on file Sexual Orientation Not on file documented as of this encounter Plan of Treatment Not on file documented as of this encounter Visit Diagnoses Not on filedocumented in this encounter Additional Health Concerns Infection Onset Date Last Indicated Resolved Time R/O Respiratory 12/18/2023 12/18/2023 12/18/2023 1 0:55 PM AOC AIRSPACE CONTROL OFFICER documented as of this encounter Care Teams Animal Biologist Relationship Specialty Start [place] [address] [place] [address] PCP - General 07/21/00 03/16/20 documented as of this encounter
--- OUTSIDE RECORDS SUMMARY | 2025-08-25 16:02 | XMS_ITS | Encounter Summary ---
Author Organization [employer] Address [address] [place] [address] Care Team Providers Care Commercial Account Officer Name Role Phone Vazquez Mcleod MD Primary Care Provider [phone] Encounter Details Date Type Department Care Team (Late st Contact Info) Description 03/17/2000 Outpatient Historical [facility] [place] [address] [place] [address] Abdominal pain, unspecified site (Primary Dx) Social History Tobacco Use Types Packs/Day Years Used Date Smoking Tobacco: Never Assessed Sex and Gender Information Value Date Recorded Sex Assigned at Not on file Legal Sex Male 12:36 AM LINK TRAINER OPERATOR Gender Identity Not on file Sexual Orientation Not on file documented as of this encounter Plan of Treatment Not on file documented as of this encounter Visit Diagnoses Diagnosis Abdominal pain, unspecified site- Primary documented in this encounter Additional Health Concerns Infection Onset Date Last Indicated Resolved Time R/O Respiratory 12/18/2023 12/18/2023 12/18/2023 1 0:55 PM LINK TRAINER OPERATOR documented as of this encounter Care Teams Commercial Account Officer Relationship Specialty Start [place] [address] [place] [address] PCP - General 07/21/00 03/16/20 documented as of this encounter
--- OUTSIDE RECORDS SUMMARY | 2025-08-25 16:02 | XMS_ITS | Encounter Summary ---
Author Organization [facility] Address [address] [place] [address] Care Team Providers Care Implement Mechanic Name Role Phone Unavailable Primary Care Provider Unavailabl e Encounter Details Date Type Department Care Team (Late st Contact Info) Description 04/27/2019 Abstract [facility] CONVERSION [address] [place] [address] , Generic Conversion, Social History Tobacco Use [...]
--- OUTSIDE RECORDS SUMMARY | 2025-08-25 16:02 | XMS_ITS | Encounter Summary ---
Author Organization [employer] Address [address] [place] [address] Care Team Providers Care Merchant Patroller Name Role Phone Vazquez Mcleod MD Primary Care Provider [phone] Encounter Details Date Type Department Care Team (Late st Contact Info) Description 12/15/1999 Outpatient Historical [facility] Medicine [address] [place] [phone] Anastacio Gutierrez MD NO ADDRESS ON FILE Social History Tobacco Use Types Packs/Day Years Used Date Smoking Tobacco: Never Assessed Sex and Gender Information Value Date Recorded Sex Assigned at Not on file Legal Sex Male 12:36 AM OPERATIONS ARCHITECT Gender Identity Not on file Sexual Orientation Not on file documented as of this encounter Plan of Treatment Not on file documented as of this encounter Visit Diagnoses Not on filedocumented in this encounter Additional Health Concerns Infection Onset Date Last Indicated Resolved Time R/O Respiratory 12/18/2023 12/18/2023 12/18/2023 1 0:55 PM OPERATIONS ARCHITECT documented as of this encounter Care Teams Merchant Patroller Relationship Specialty Start [place] [address] [place] [phone] PCP - General 07/21/00 03/16/20 documented as of this encounter
--- OUTSIDE RECORDS SUMMARY | 2025-08-25 16:02 | XMS_ITS | Encounter Summary ---
Author Organization [facility] Address [address] [place] [address] Care Team Providers Care Aerospace Engineer Officer Armament Name Role Phone Vazquez Mcleod MD Primary Care Provider [phone] Encounter Details Date Type Department Care Team (Latest Contact Info) Description 04/12/2001 Outpatient Historical [facility] LA[facility]A Hauser, Xavier Fall MD [address] [place] [address] Calculus of kidney (Primary Dx) Social History Tobacco Use Types Packs/Day Years Used Date Smoking Tobacco: Never Assessed Sex and Gender Information Value Date Recorded Sex Assigned at Not on file Legal Sex Male 12:36 AM IT SECURITY PROJECT MANAGER Gender Identity Not on file Sexual Orientation Not on file documented as of this encounter Plan of Treatment Not on file documented as of this encounter Visit Diagnoses Diagnosis Calculus of kidney- Primary documented in this encounter Additional Health Concerns Infection Onset Date Last Indicated Resolved Time R/O Respiratory 12/18/2023 12/18/2023 12/18/2023 1 0:55 PM IT SECURITY PROJECT MANAGER documented as of this encounter Care Teams Aerospace Engineer Officer Armament Relationship Specialty [place] [address] [facility] [address] [place] [address] PCP - General 07/21/00 03/16/20 documented as of this encounter
--- OUTSIDE RECORDS SUMMARY | 2025-08-25 16:02 | XMS_ITS | Encounter Summary ---
Author Organization [facility] Address [address] [place] [place] [address] Care Team Providers Care Environmental Services Technician Name Role Phone Ligiaeugenia Tawny KNAPP-CAFETERIA TEAM LEADER Primary Care Provider + Akil Figueroa MD Unavailable Encounter Details Date Type Department Care Team ([facility] st Contact Info) Description 08/19/2022 Op/Procedure Report External [facility] [address] [place] [id number] Document, Scanned Social History Tobacco Use Types [...] Sex Assigned at Male 10/21/2024 11:57 AM MARBLE CARVER Legal Sex Male 5:38 AM MARBLE CARVER Gender Identity Male 10/21/2024 11:57 AM MARBLE CARVER Sexual Orientation Straight 10/21/2024 11 :57 AM MARBLE CARVER COVID-19 Exposure Response Date Recorded In the [...] Description 09/19/2025 8:45 AM CDT Office Visit [address] [phone] Tawny Cooley APRN-CNP [address] [place] [phone] 01/16/2026 2:45 PM MARBLE CARVER Office Visit [address] [phone] Tawny Cooley APRN-CNP [address] [place] [phone] documented as of this encounter Visit Diagnoses Not on filedocumented in this encounter Additional Health Concerns Infection Onset Date Last Indicated Resolved Time COVID-19 Under Investigation 12/04/2024 12/04/2024 12/04/2024 2:14 PM MARBLE CARVER documented as of this encounter Care Teams Environmental Services Technician Relationship Specialty Start Date End Date Tawny Cooley APRN-ENENA PCP - General Nurse Practitioner Family 04/24/20 Akil Figueroa MD [address] [facility] [address] [facility] [address] [place] [address] Urology 07/23/24 documented as of this encounter
--- OUTSIDE RECORDS SUMMARY | 2025-08-25 16:02 | XMS_ITS | Encounter Summary ---
Author Organization [facility] Address [address] [place] [address] Care Team Providers Care Lens And Frames Prescription Clerk Name Role Phone Vazquez Mcleod MD Primary Care Provider [phone] Encounter Details Date Type Department Care Team (Late st Contact Info) Description 03/04/1999 Outpatient Historical [facility] Medicine 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 Gender Identity Not on file Sexual Orientation Not on file documented as of this encounter Plan of Treatment Not on file documented as of this encounter Visit Diagnoses Not on filedocumented in this encounter Additional Health Concerns Infection Onset Date Last Indicated Resolved Time R/O Respiratory 12/18/2023 12/18/2023 12/18/2023 1 0:55 PM TURFGRASS TECHNICIAN documented as of this encounter Care Teams Lens And Frames Prescription Clerk Relationship Specialty [place] [address] [place] [address] PCP - General 07/21/00 03/16/20 documented as of this encounter
--- OUTSIDE RECORDS SUMMARY | 2025-08-25 16:02 | XMS_ITS | Clinical Summary ---
Author Organization [facility] Address [address] [place] [address] Care Team Providers Care Accounts Receivable Specialist Name Role Phone Lenora Tawny KNAPP-OTOLARYNGOLOGY PHYSICIAN Primary Care Provider + Akil Figueroa MD Unavailable Source Comments [facility],non-owned Affiliates and Associated Physician Practices is amultiple site organization consisting of ambulatory clinics and hospital sitesin [place], [place], [place] and [place]. This disclosure is being madepursuant to the Care Everywhere program and may not contain all information available regarding this patient. Last updated 18.[facility] Allergies Active Allergy Reactions Criticality Noted Date Comments Cat Hair Extract Cough,Other 08/21/2025 Cefaclor Rash,Urticaria High 04/26/2010 Cephalosporins Anaphylaxis High 08/21/2025 Contrast-Iodinated Agents For Ct/Other Anaphylaxis,Shortne ss of Breath,Skin Reactions High 04/26/2010 Levofloxacin Rash Medium 08/22/2025 Skin Protectants, Misc. Anaphylaxis High 08/14/2018 Sulfa Drugs Rash,Urticaria High 04/26/2010 Tetanus Toxoids Anaphylaxis High 08/14/2018 Ketorolac Other 05/12/2023 Patient reports heart palpitations [...] Patient not taking.Reason: Patient adjusted, Reported on 08/21/2025 tamsulosin (Flomax) 0.4 MG capsule Take 1 [...] Patient not taking.Reason: Patient adjusted, Reported on 08/21/2025 albuterol HFA (Proventil; Ventolin; Proair) 108 (90 [...] daily 60 g 5 07/18/20 25 Active Spacer/Aero-Hold ing Chambers JAKE Active rosuvastatin (Crestor) 10 MG tabletIndication s:Hyperlipidemia ,ASCVD risk score 10.7 Take 1 (one) tablet by mouth once daily Reasons: High Amount of Fats in the Blood, ASCVD risk score 10.7 90 tablet 1 08/18/20 25 Active cephalexin (Keflex) 500 MG capsule TAKE 1 CAPSULE BY MOUTH EVERY 12 HOURS FOR 7 DAYS 08/18/20 25 Active solifenacin (Vesicare) 5 MG tablet TAKE 1 TABLET BY MOUTH ONCE DAILY FOR 10 DAYS 08/18/20 25 Active tacrolimus (Protopic) 0.1 % ointment APPLY 1 GRAM TOPICALLY TO ITCHY OR THICKENED BUMPS ON EXTREMITIES TWICE DAILY NEEDED 08/11/20 25 Active levoFLOXacin (Levaquin) 750 MG tabletIndication s:Dysuria Take 1 (one) tablet by mouth once daily for 7 days 7 tablet 08/21/20 25 025 Active HYDROcodone-acet aminophen (Lincoln) 7.5-325 MG tabletIndication s:Acute right flank pain Take 1 (one) tablet by mouth every 12 hours as needed for Pain 60 tablet 08/21/20 25 025 Active ciprofloxacin (Cipro) 500 MG tabletIndication s:Urinary tract infection with hematuria, site unspecified Take 1 (one) tablet by mouth 2 times daily 14 tablet 07/18/20 25 025 Discontin ued(Tx Complete) HYDROcodone-acet aminophen (Lincoln) 5-325 MG tablet Take 1 (one) tablet by mouth every 6 hours as needed pain 08/18/20 25 025 Discontin ued(Tx Complete) Hospital, Clinic, or Other Facility Administered Medication Ordered Dose Route Frequency Start Date End Date Status ketorolac (Toradol) injection 60 mgIndications:Acute right flank pain,Kidney stones 60 mg IM ONCE 08/21/2025 08/21/2025 Ended Active Problems Problem Noted Date Diagnosed Date Benign nodular prostatic hyp erplasia with lower urinary tract symptoms 08/21/2025 Calcium kidney stone 08/21/2025 Overview (08/21/2025): 7 mm left upper pole stone and 10 mm mid pole right nonobstructing stones noted on CT. Discussed results with patient and recommendations for ESWL given stone size. Will obtain KUB to ensure visible. Contrast media allergy 08/21/2025 Renal cyst, right 08/21/2025 Screening for prostate cancer 08/21/2025 Acute cough 12/04/2024 Right shoulder pain 10/21/2024 Vertigo 12/20/2023 Pneumothorax 08/23/2022 Warts, genital 06/23/2022 Overview (06/23/2022): X 6 on penis Essential hypertension 04/06/2020 Chest pain 04/06/2020 Chronic obstructive pulmonary disease 04/27/2010 Overview (08/21/2025): Phreesia 11/22/2023 Asthma 04/27/2010 Hypokalemia 04/27/2010 Hypoxemia 04/27/2010 Leukocytosis 04/27/2010 Subcutaneous emphysema 04/27/2010 Tobacco abuse 04/27/2010 Preop examination Encounters Date Type Department Care Team Description 08/22/2025 9:53 PM CDT - 08/22/2025 11:26 PM CDT Emergency ER at [address] [address] Miguel Wall MD Allergic reaction, initial encounter Discharge Disposition: Home or Self Care 08/22/2025 Travel 08/21/2025 4:00 PM CDT Office Visit [address] [phone] Jonas Maguire MD Acute right flank pain (Primary Dx); Kidney stones; Dysuria 08/19/[address] [phone] Tawny Cooley APRN-OTOLARYNGOLOGY PHYSICIAN Appointment 08/18/2025 Orders Only [address] [phone] Tawny Cooley APRN-CNP Mixed hyperlipidemia ; Prediabetes 08/09/2025 9:07 AM CDT - 08/09/2025 11:59 PM CDT Hospital Encounter [facility] Card[facility]hab [address] [place] [phone] Unknown, Provider Hospitalist Discharge Disposition: Home or Self Care 08/09/2025 9:03 AM CDT - 08/09/2025 9:06 AM CDT Hospital Encounter [facility] - Laboratory [address] [place] [phone] Leonard Mccallum MD Hoffmann, Shelby Piña MD Unknown, Provider Discharge Disposition: Home or Self Care 07/30/2025 8:44 AM CDT - 07/30/2025 11:59 PM CDT Hospital Encounter [facility]MRI [address] [place] [phone] Tawny Cooley APRN-CNP Discharge Disposition: Home or Self Care 07/30/2025 Orders Only [address] [phone] Tawny Cooley APRN-CNP Partial tear of common extensor tendon of right elbow ; Tendinopathy of elbow, right 07/30/2025 Results Follow-Up [address] [phone] Tawny Cooley APRN-CNP Results 07/24/[address] [phone] Tawny Cooley APRN-CNP Durable Medical Equipment 07/21/2025 Results Follow-Up [address] [phone] Tawny Cooley APRN-CNP Results 07/18/2025 4:46 PM CDT - 07/18/2025 11:59 PM CDT Hospital Encounter [address] [phone] Tawny Cooley APRN-CNP Discharge Disposition: Home or Self Care 07/18/2025 3:15 PM CDT Office Visit formerly [facility] [address] [place] [phone] Tawny Cooley APRN-CNP Mild intermittent asthma, unspecified [...] hematuria, site unspecified from Last 3 Months Immunizations Immunization Administration Dates Next Due [employer] primary monoval ent 12+ yr 0.3mL Purple [...] 0.3 39.8 Started: 1985 Smokeless Tobacco: Never Tobacco Cessation:Ready to Q uit: No; Counseling Given: Yes Comments:Smoke and vape very little Alcohol Use Standard Drinks/Week Comments Yes 2 (1 standard drink = 0.6 oz pur e alcohol) rarely AUDIT-C Answer Date Recorded Q1: How often do you have a drink containing alcohol? Never 08/22/2025 Q2: How many drinks containi ng alcohol do you have on a typical day when you are drinking? Patient does not drink Q3: How often do you have si x or more drinks on one occasion? Never 08/22/2025 PHQ-2 Answer Date Recorded Patient Health Questionnaire-2 Score 0 08/21/2025 Sex and Gender Information Value Date Recorded Sex Assigned at Male 10/21/2024 11:57 AM BRAZE OPERATOR Legal Sex Male 5:38 AM BRAZE OPERATOR Gender Identity Male 10/21/2024 11:57 AM BRAZE OPERATOR Sexual Orientation Straight 10/21/2024 11 :57 AM BRAZE OPERATOR Last Filed Vital Signs Vital Sign Reading Time Taken Comments Blood Pressure 172/96 08/22/2025 10:54 PM CDT Pulse 85 08/22/2025 10:44 PM CDT Temperature 36.6 C (97.9 F) 08/22/2025 9:49 PM CDT Respiratory Rate 20 08/22/2025 9:49 PM CDT Oxygen Saturation 98% 08/22/2025 10:44 PM CDT Inhaled Oxygen Concentration 21% 08/13/2016 9 :35 PM CDT Weight 83.5 kg (184 lb) 08/22/2025 9:49 PM CDT Height 165.1 cm (5' 5) 08/22/2025 9:49 PM CDT Body Mass Index 30.62 08/22/2025 9:49 PM CDT Plan of Treatment Upcoming Encounters Date Type Department Care Team (Late st Contact Info) Description 09/19/2025 8:45 AM CDT Office Visit [address] [phone] Tawny Cooley WOOL HAT SANDING MACHINE OPERATOR-OTOLARYNGOLOGY PHYSICIAN [address] [place] [phone] 01/16/2026 2:45 PM BRAZE OPERATOR Office Visit [address] [phone] Tawny Cooley, WOOL HAT SANDING MACHINE OPERATOR-OTOLARYNGOLOGY PHYSICIAN [address] [place] [phone] Health Maintenance Due Date Last Done Comments COLOGUARD (AGES 45-75) - COLON CA SCREENING 1966 CT COLONOGRAPHY - COLON CA SCREENING 1966 FIT - COLON CA SCREENING 1966 FLEX SIG - COLON CA SCREENING 1966 PNEUMOCOCCAL VACCINE 50+ (1 of 2 - PCV) 1985 COVID-19 VACCINE (4 - season) 2025 11/28/2021, 05/29/2021, 05/08/2021 INFLUENZA VACCINE (#1) 2025 09/09/2021 ZOSTER VACCINE (1 of 2) 05/15/2026 Post poned from 2016 (Insurance Coverage) SCREENING FOR DIABETES 08/09/2028 , 08/09/2025, 06/19/2024, Additional history exists COLON MONITORING 04/03/2030 04/03/2020 COLONOSCOPY - COLON CA SCREENING 04/03/2030 04/03/2020 Colorectal Cancer Screening 04/03/2030 DTAP/TDAP/TD VACCINES Discontinued 05/07/2024 DEPRESSION SCREENING Completed [...] URINALYSIS DIPSTICK - POINT OF CARE (AMB) [facility] Routine 07/18/2025 4:30 PM CDT Dysuria URINE [...] No growth 08/12/2025 4:06 AM CDT [facility] ([facility]) Urine URINE SPECIMEN OBTAINED BY CLEAN CATCH PROCEDURE / Unknown Collection / Unknown 08/09/2025 10:11 AM CDT 08/09/2025 10:11 AM CDT Narrative [facility] - 08/12/2025 4:06 AM CDT Performed at: [address] [place] [id number] Electric Truck Driver: Geovany Johnston PhD, Phone: [phone] Akil Figueroa MD LAB - MICROBIOLOGY ORDERABLES Fi nal Result Performing Organization Address City/[facility]/ZIP Co de Phone Number [facility]) [address] [place] [address] * (ABNORMAL) HEMOGLOBIN A1C (08/09/2025 10:11 AM CDT) Hemoglobin A1c 5.9(H) 0.0 - 5.7 % 08/09/2025 11:38 AM CDT [facility] ([facility]) Estimated Average Glucose 122.63 mg/dL 08/09/2025 11:38 AM CDT [facility] ([facility]) Blood BLOOD SPECIMEN / Unknown Lab Venipuncture / Unknown 08/09/2025 10:11 AM CDT 08/09/2025 10:11 AM CDT Narrative [facility] ([facility]) - 08/09/2025 11:38 AM CDT [employer] Suggested Interpretation: 5.7-6.4% Hemoglobin A1c = Prediabetes >6.5% Hemoglobin A1c = Consistent with Diabetes Tawny Cooley WOOL HAT SANDING MACHINE OPERATOR-OTOLARYNGOLOGY PHYSICIAN LAB - CHEMISTRY ORDERABL ES Final Result [facility] ([facility]) [address] [place] [address] * (ABNORMAL) VITAMIN D 25-HYDROXY (08/09/2025 10:11 AM CDT) Vitamin D, 25 Hydroxy 28(L) 30 - 100 ng/mL 08/09/2025 12:19 PM CDT [facility] ([facility]) Blood BLOOD SPECIMEN / Unknown Lab Venipuncture / Unknown 08/09/2025 10:11 AM CDT 08/09/2025 10:11 AM CDT Tawny Cooley WOOL HAT SANDING MACHINE OPERATOR-OTOLARYNGOLOGY PHYSICIAN LAB - CHEMISTRY ORDERABL ES Final Result Performing Organization Address City/[facility]/ZIP Co de Phone Number [facility] ([facility]) [address] [place] [address] * CULTURE URINE (08/09/2025 10:11 AM CDT) Only the most recent of2 resultswithin the time period is included. Pathologist [facility] Urine Culture Routine Final report 08/12/2025 4:06 AM CDT [facility]) Urine URINE SPECIMEN OBTAINED BY CLEAN CATCH PROCEDURE / Unknown Collection / Unknown 08/09/2025 10:11 AM CDT 08/09/2025 10:11 AM CDT Narrative [facility] ([facility]) - 08/12/2025 4:06 AM CDT Performed at: [facility] [id number] Electric Truck Driver: Geovany Johnston PhD, Phone: [phone] Akil Figueroa MD LAB - MICROBIOLOGY ORDERABLES Fi nal Result Performing Organization Address City/[facility]/ZIP Co de Phone Number [facility]) [address] [place] [address] * (ABNORMAL) CBC WITH DIFFERENTIAL (08/09/2025 10:11 AM CDT) WBC 7.5 4.0 - 10.0 K/uL 08/09/2025 11:17 AM CDT [facility]) RBC 5.8(H) 4.2 - 5.7 M/ul 08/09/2025 11:17 AM CDT [facility]) Hemoglobin 16.1 13.0 - 18.0 g/dL 08/09/2025 11:17 AM CDT [facility] ([facility]) Hematocrit 49.2 38.0 - 51.0 % 08/09/2025 11:17 AM T [facility] ([facility]) MCV 84.5 82.0 - 98.0 fL 08/09/2025 11:17 AM T [facility] ([facility]) MCH 27.7 27.0 - 34.0 pg 08/09/2025 11:17 AM [facility] ([facility]) MCHC 32.7 32.0 - 35.0 g/dL 08/09/2025 11:17 AM T [facility] ([facility]) RDW-CV 14.4 11.4 - 14.6 % 08/09/2025 11:17 AM T [facility]) Platelet Count 353 120 - 410 K/uL 08/09/2025 11:17 AM T [facility]) MPV 9.0 5.2 - 12.8 fL 08/09/2025 11:17 AM [facility] ([facility]) Neutrophils % 60.5 25.0 - 78.0 % 08/09/2025 11:17 AM [facility]) Lymphocytes % 27.1 10.0 - 50.0 % 08/09/2025 11:17 AM T [facility] ([facility]) Monocytes % 7.8 0.0 - 11.0 % 08/09/2025 11:17 AM [facility]) Eosinophils % 4.0(H) 0.0 - 3.0 % 08/09/2025 11:17 AM T [facility] ([facility]) Basophils % 0.5 0.0 - 1.5 % 08/09/2025 11:17 AM T [facility]) Neutrophil Absolute 4.5 2.0 - 6.9 K/uL 08/09/2025 11:17 AM T [facility]) Lymphocyte Absolute 2.0 0.6 - 4.6 K/uL 08/09/2025 11:17 AM T [facility]) Monocyte Absolute 0.6 0.0 - 0.9 K/uL 08/09/2025 11:17 AM CDT [facility]) Eosinophil Absolute 0.3 0.0 - 0.7 K/uL 08/09/2025 11:17 AM CDT [facility]) Basophil Absolute 0.0 0.0 - 0.2 K/uL 08/09/2025 11:17 AM CDT [facility]) Immature Granulocytes % 0.1 0.0 - 0.5 % 08/09/2025 11:17 AM CDT [facility]) Immature Granulocytes Absolute 0.01 0.00 - 0.03 K/UL 08/09/2025 11:17 AM CDT [facility]) Blood BLOOD SPECIMEN / Unknown Lab Venipuncture / Unknown 08/09/2025 10:11 AM CDT 08/09/2025 10:11 AM CDT Tawny Cooley WOOL HAT SANDING MACHINE OPERATOR-OTOLARYNGOLOGY PHYSICIAN LAB - HEMATOLOGY ORDERAB LES Final Result [facility] ([facility]) [address] [place] [address] * (ABNORMAL) COMPREHENSIVE METABOLIC PANEL (08/09/2025 10:11 AM CDT) Sodium 141 137 - 145 mmol/L 08/09/2025 12:20 PM CDT [facility] Potassium 4.2 3.6 - 5.0 mmol/L 08/09/2025 12:20 PM T [facility]) Chloride 106 98 - 107 mmol/L 08/09/2025 12:20 PM T [facility]) Carbon Dioxide 26 21 - 31 mmol/L 08/09/2025 12:20 PM T [facility]) Glucose 105(H) 75 - 100 mg/dL 08/09/2025 12:20 PM T [facility]) BUN 15 7 - 17 mg/dL 08/09/2025 12:20 PM T [facility]) Creatinine 1.00 0.66 - 1.25 mg/dL 08/09/2025 12:20 PM [facility]) eGFR 76 >=60 ml/min/1.7 3*2 08/09/2025 12:20 PM [facility]) Comment: Chronic kidney disease is defined as [...] 15.2 6.0 - 26.0 08/09/2025 12:20 PM [facility]) Calcium 9.8 8.4 - 10.7 mg/dL 08/09/2025 12:20 PM [facility] Protein Total 7.7 6.3 - 8.2 g/dL 08/09/2025 12:20 PM [facility]) Albumin 4.4 3.9 - 5.0 g/dL 08/09/2025 12:20 PM [facility]) Albumin/Globulin Ratio 1.3 1.1 - 2.2 g/dL 08/09/2025 12:20 PM [facility] Bilirubin Total 0.5 0.2 - 1.3 mg/dL 08/09/2025 12:20 PM [facility]) Alkaline Phosphatase 107 38 - 126 U/L 08/09/2025 12:20 PM [facility] AST 25 14 - 50 U/L 08/09/2025 12:20 PM [facility] ALT 39 9 - 52 U/L 08/09/2025 12:20 PM [facility] Blood BLOOD SPECIMEN / Unknown Lab Venipuncture / Unknown 08/09/2025 10:11 AM CDT 08/09/2025 10:11 AM CDT SpineTheraN-OTOLARYNGOLOGY PHYSICIAN LAB - CHEMISTRY ORDERABL ES Final Result [facility]) [address] [place] [address] * VITAMIN B12 (08/09/2025 10:11 AM CDT) [facility] Vitamin B12 396 232 - 1245 pg/mL 08/11/2025 12:07 PM CDT [facility] ([facility]) Blood BLOOD SPECIMEN / Unknown Lab Venipuncture / Unknown 08/09/2025 10:11 AM CDT 08/09/2025 10:11 AM CDT Narrative [facility] ([facility]) - 08/11/2025 12:07 PM CDT Performed at: [facility] [id number] Electric Truck Driver: Geovany Johnston PhD, Phone: [phone] SpineTheraN-OTOLARYNGOLOGY PHYSICIAN LAB - CHEMISTRY ORDERABL ES Final Result Performing Organization Address City/[facility]/ZIP Co de Phone Number [facility]) [address] [place] [address] * TSH (08/09/2025 10:11 AM CDT) [facility] TSH 0.989 0.465 - 4.680 mIU/mL 08/09/2025 12:20 PM CDT [facility]) Blood BLOOD SPECIMEN / Unknown Lab Venipuncture / Unknown 08/09/2025 10:11 AM CDT 08/09/2025 10:11 AM CDT SpineTheraN-OTOLARYNGOLOGY PHYSICIAN LAB - CHEMISTRY ORDERABL ES Final Result [facility]) [address] [place] [address] * (ABNORMAL) LIPID PROFILE (08/09/2025 10:11 AM CDT) Cholesterol 215(H) 110 - 200 mg/dL 08/09/2025 12:20 PM CDT [facility] Triglycerides 144 40 - 150 mg/dL 08/09/2025 12:20 PM CDT [facility] HDL 39(L) 40 - 60 mg/dL 08/09/2025 12:20 PM CDT [facility]) LDL Direct 135(H) 0 - 99 mg/dL 08/09/2025 12:20 PM CDT [facility]) VLDL 29 0 - 40 mg/dL 08/09/2025 12:20 PM CDT [facility]) CHOL/HDL RATIO 6.00(H) 0.00 - 4.98 08/09/2025 12:20 PM CDT [facility]) Blood BLOOD SPECIMEN / Unknown Lab Venipuncture / Unknown 08/09/2025 10:11 AM CDT 08/09/2025 10:11 AM CDT Tawny Cooley WOOL HAT SANDING MACHINE OPERATOR-OTOLARYNGOLOGY PHYSICIAN LAB - CHEMISTRY ORDERABL ES Final Result Performing Organization Address City/State/[facility] Co de Phone Number [facility]) [address] [place] [address] * (ABNORMAL) PT PTT PANEL (08/09/2025 10:08 AM CDT) PT 10.1 9.2 - 11.0 sec 08/09/2025 11:39 AM CDT [facility] INR 0.97(L) 2 - 4 08/09/2025 11:39 AM CDT [facility] PTT 28.7 20.6 - 31.1 sec 08/09/2025 11:39 AM CDT [facility] Blood BLOOD SPECIMEN / Unknown Lab Venipuncture / Unknown 08/09/2025 10:08 AM CDT 08/09/2025 10:11 AM CDT Narrative [facility]) - 08/09/2025 11:39 AM CDT Therapeutic Ranges: Prophylaxis, treatment of DVT, PE......... 2.0-3.0 Tissue Heart Valves ..................................... 2.0-3.0 Acute ID ...................................... 2.5-3.5 Valvular Heart Disease ..........................2.5-3.5 Atrial Fibrillation ............................2.5-3.5 Mechanical Heart Vlave .............2.5-3.5 For more Informations see CHEST Vol 119/1 Supp (2000) Akil Figeuroa MD LAB - COAGULATION ORDERABLES Fin al Result Performing Organization Address City/[facility]/ZIP Co de Phone Number [facility]) [address] [place] [address] * EKG 12-Lead (08/09/2025 9:24 AM CDT) Ashu Bright MD ECG ORDERABLES Final Result Performing Organization Address [facility] Co de Phone Number [facility] * MRI Elbow Right Wo Contrast [...] DATE/TIME OF EXAM: 07/30/2025 9:27 AM, LOCATION [facility] INDICATION: M25.521: Right elbow pain COMPARISON: None. [...] in course and morphology. Procedure Note Jude Lopez, - 07/30/2025 PROCEDURE: MRI ELBOW RIGHT WO CONTRAST, DATE/TIME OF EXAM: 59:27 AM, LOCATION [facility] INDICATION: M25.521: Right elbow pain COMPARISON: None. [...] Jude Lopez DO on 07/30/2025 2:38 PM ViRTUAL INTERACTiVE WOOL HAT SANDING MACHINE OPERATOR-OTOLARYNGOLOGY PHYSICIAN MR ORDERABLES Final Re sult * (ABNORMAL) URINALYSIS DIPSTICK - POINT OF CARE (AMB) [facility] (07/18/2025 4:30 PM CDT) Color UA Yellow Yellow, Natalia [facility] Clarity UA Clear Clear, Hazy [facility] Specific [place] UA 1.020 1.000, 1.005, 1.010, 1.015, 1.020, 1.025 [facility] pH UA 7.0 5.0, 5.5, 6.0, 6.5, 7.0, 7.5, 8.0, 8.5, 9.0 [facility] Protein UA Trace Negative, Trace [facility] Glucose UA Negative Negative [facility] Ketone UA Negative Negative [facility] Bilirubin UA Small(A) Negative [facility] Blood UA Moderate(A) Negative [facility] Leukocyte Esterase UA Small(A) Negative [facility] Nitrite UA Negative Negative [facility] Urobilinogen UA Negative 0.2 EU/dL, 1.0 EU/dL, Negative [facility] Urine URINE / Unknown 07/18/2025 4 :30 PM CDT [employer]ACT[employer] MACHINE OPERATOR-OTOLARYNGOLOGY PHYSICIAN LAB - POINT OF CARE TRACY NINO Final Result [facility] [address] [place] [address], [place]UST from Last 3 Months Insurance [employer] Member Subscriber Plan / Payer (Ef fective 2024-Present) Name:Bone, Vazquez D Relation to Subscriber:Self Name:BoneLucaVazquez D Payer ID:[id number] (NAIC) Type:HMO Address: [id number] [place] [address] [employer]ARE [employer] Advance Directives * Full Code (Latest Code Status on File) Date Activated Date Inactivated Comments 04/06/2020 9:13 PM 04/08/2020 5:33 PM Care Teams Accounts Receivable Specialist Relationship Specialty Start Date End Date Tawny Cooley, WOOL HAT SANDING MACHINE OPERATOR-OTOLARYNGOLOGY PHYSICIAN PCP - General Nurse Practitioner Family 04/24/20 Akil Figueroa MD [address] [facility] [address] [facility] [address] [place] [address] Urology 07/23/24
--- OUTSIDE RECORDS SUMMARY | 2025-08-25 16:02 | XMS_ITS | Encounter Summary ---
Author Organization [facility] Address [address] [place] [address] Care Team Providers Care Fire Watchman Name Role Phone Ligiaeugenia Tawny KNAPP-COMPOSITE SCIENCE TEACHER Primary Care Provider + Akil Figueroa MD Unavailable Encounter Details Date Type Department Care Team ([facility] st Contact Info) Description 08/19/2022 Op/Procedure Report External [facility] [address] [place] [phone] Document, Scanned Social History Tobacco Use Types [...] Sex Assigned at Male 10/21/2024 11:57 AM HYPERBARIC TECHNICIAN Legal Sex Male 5:38 AM HYPERBARIC TECHNICIAN Gender Identity Male 10/21/2024 11:57 AM HYPERBARIC TECHNICIAN Sexual Orientation Straight 10/21/2024 11 :57 AM HYPERBARIC TECHNICIAN COVID-19 Exposure Response Date Recorded In the [...] Description 09/19/2025 8:45 AM CDT Office Visit [address] [phone] Tawny Cooley APRN-CNP [address] [place] [phone] 01/16/2026 2:45 PM HYPERBARIC TECHNICIAN Office Visit [address] [phone] Tawny Cooley APRN-CNP [address] [place] [phone] documented as of this encounter Visit Diagnoses Not on filedocumented in this encounter Additional Health Concerns Infection Onset Date Last Indicated Resolved Time COVID-19 Under Investigation 12/04/2024 12/04/2024 12/04/2024 2:14 PM HYPERBARIC TECHNICIAN documented as of this encounter Care Teams Fire Watchman Relationship Specialty Start Date End Date Tawny Cooley APRN-NEENA PCP - General Nurse Practitioner Family 04/24/20 Akil Figueroa MD [address] [facility] 162 [facility] [address] [place] [address] Urology 07/23/24 documented as of this encounter
--- OUTSIDE RECORDS SUMMARY | 2025-08-25 16:02 | XMS_ITS | Encounter Summary ---
Author Organization [employer] Address [address] [place] [address] Care Team Providers Care Transportation Modeler Name Role Phone Vazquez Mcleod MD Primary Care Provider [phone] Encounter Details Date Type Department Care Team (Latest Contact Info) Description 12/14/1998 Outpatient Historical [facility] [place] [address] [place] [address] Chest pain, unspecified (Primary Dx) Social History Tobacco Use Types Packs/Day Years Used Date Smoking Tobacco: Never Assessed Sex and Gender Information Value Date Recorded Sex Assigned at Not on file Legal Sex Male 12:36 AM TEST RACK OPERATOR Gender Identity Not on file Sexual Orientation Not on file documented as of this encounter Plan of Treatment Not on file documented as of this encounter Visit Diagnoses Diagnosis Chest pain, unspecified- Primary documented in this encounter Additional Health Concerns Infection Onset Date Last Indicated Resolved Time R/O Respiratory 12/18/2023 12/18/2023 12/18/2023 1 0:55 PM TEST RACK OPERATOR documented as of this encounter Care Teams Transportation Modeler Relationship Specialty Start [place] [address] [place] [address] PCP - General 07/21/00 03/16/20 documented as of this encounter
--- OUTSIDE RECORDS SUMMARY | 2025-08-25 16:02 | XMS_ITS | Encounter Summary ---
Author Organization [employer] Address [address] [place] [address] Care Team Providers Care Muleser Name Role Phone Vazquez Mcleod MD Primary Care Provider [phone] Encounter Details Date Type Department Care Team (Late st Contact Info) Description 03/16/2000 Outpatient Historical [facility] Medicine [address] [place] [phone] [place] [address] [place] [address] Social History Tobacco Use Types Packs/Day Years Used Date Smoking Tobacco: Never Assessed Sex and Gender Information Value Date Recorded Sex Assigned at Not on file Legal Sex Male 12:36 AM STONE CHIMNEY MASON Gender Identity Not on file Sexual Orientation Not on file documented as of this encounter Plan of Treatment Not on file documented as of this encounter Visit Diagnoses Not on filedocumented in this encounter Additional Health Concerns Infection Onset Date Last Indicated Resolved Time R/O Respiratory 12/18/2023 12/18/2023 12/18/2023 1 0:55 PM STONE CHIMNEY MASON documented as of this encounter Care Teams Muleser Relationship Specialty Start [place] [address] [place] [address] PCP - General 07/21/00 03/16/20 documented as of this encounter
--- OUTSIDE RECORDS SUMMARY | 2025-08-25 16:02 | XMS_ITS | Encounter Summary ---
Author Organization [employer] Address 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 Gender Identity Not on file Sexual Orientation Not on file documented as of this encounter Plan of Treatment Not on file documented as of this encounter Visit Diagnoses Diagnosis Unspecified asthma(493.90)- Primary Unspecified asthma documented in this encounter Additional Health Concerns Infection Onset Date Last Indicated Resolved Time R/O Respiratory 12/18/2023 12/18/2023 12/18/2023 1 0:55 PM HEARING DOG TRAINER documented as of this encounter Care Teams Visual Merchandising Associate Relationship Specialty Start [place] [address] [facility] [address] [place] [phone] PCP - General 07/21/00 03/16/20 documented as of this encounter
--- OUTSIDE RECORDS SUMMARY | 2025-08-25 16:02 | XMS_ITS | Encounter Summary ---
Author Organization [employer] Address [address] [place] [address] Care Team Providers Care Rattle Leak And Squeak Repairer Name Role Phone Vazquez Mcleod MD Primary Care Provider [phone] Encounter Details Date Type Department Care Team (Late st Contact Info) Description 05/29/2000 Outpatient Historical [facility] Medicine 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 Gender Identity Not on file Sexual Orientation Not on file documented as of this encounter Plan of Treatment Not on file documented as of this encounter Visit Diagnoses Not on filedocumented in this encounter Additional Health Concerns Infection Onset Date Last Indicated Resolved Time R/O Respiratory 12/18/2023 12/18/2023 12/18/2023 1 0:55 PM UNDERGROUND MINE SUPERINTENDENT documented as of this encounter Care Teams Rattle Leak And Squeak Repairer Relationship Specialty Start [place] [address] [place] [address] PCP - General 07/21/00 03/16/20 documented as of this encounter
--- OUTSIDE RECORDS SUMMARY | 2025-08-25 16:02 | XMS_ITS | Encounter Summary ---
Author Organization [employer] Address [address] [place] [address] Care Team Providers Care Site Damage Prevention Technician Name Role Phone Vazquez Mcleod MD Primary Care Provider [phone] Encounter Details Date Type Department Care Team (Late st Contact Info) Description 05/25/2000 Outpatient Historical [facility] Medicine 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 Gender Identity Not on file Sexual Orientation Not on file documented as of this encounter Plan of Treatment Not on file documented as of this encounter Visit Diagnoses Not on filedocumented in this encounter Additional Health Concerns Infection Onset Date Last Indicated Resolved Time R/O Respiratory 12/18/2023 12/18/2023 12/18/2023 1 0:55 PM MANUFACTURING PLANT MANAGER documented as of this encounter Care Teams Site Damage Prevention Technician Relationship Specialty Start [place] [address] [place] [address] PCP - General 07/21/00 03/16/20 documented as of this encounter
--- OUTSIDE RECORDS SUMMARY | 2025-08-25 16:02 | XMS_ITS | Encounter Summary ---
Author Organization [employer] Address 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 Gender Identity Not on file Sexual Orientation Not on file documented as of this encounter Plan of Treatment Not on file documented as of this encounter Visit Diagnoses Diagnosis Urethritis, unspecified- Primary documented in this encounter Additional Health Concerns Infection Onset Date Last Indicated Resolved Time R/O Respiratory 12/18/2023 12/18/2023 12/18/2023 1 0:55 PM MOLDER MACHINE TENDER documented as of this encounter Care Teams Electronic Equipment Repairer Relationship Specialty Start [place] [address] [facility] [address] [place] [phone] PCP - General 07/21/00 03/16/20 documented as of this encounter
--- OUTSIDE RECORDS SUMMARY | 2025-08-25 16:02 | XMS_ITS | Encounter Summary ---
Author Organization [employer] Address 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 Gender Identity Not on file Sexual Orientation Not on file documented as of this encounter Plan of Treatment Not on file documented as of this encounter Visit Diagnoses Diagnosis Unspecified sinusitis (chronic)- Primary documented in this encounter Additional Health Concerns Infection Onset Date Last Indicated Resolved Time R/O Respiratory 12/18/2023 12/18/2023 12/18/2023 1 0:55 PM RETAIL SHIFT LEADER documented as of this encounter Care Teams Waitstaff Captain Relationship Specialty [place] [address] [place] [phone] PCP - General 07/21/00 03/16/20 documented as of this encounter
--- OUTSIDE RECORDS SUMMARY | 2025-08-25 16:02 | XMS_ITS | Encounter Summary ---
Author Organization [employer] Address [address] [place] [address] Care Team Providers Care Mastic Man Name Role Phone Vazquez Mcleod MD Primary Care Provider [phone] Encounter Details Date Type Department Care Team (Late st Contact Info) Description 02/17/2000 Outpatient Historical [facility] Medicine [address] [place] [phone] [place] [address] [place] [address] Social History Tobacco Use Types Packs/Day Years Used Date Smoking Tobacco: Never Assessed Sex and Gender Information Value Date Recorded Sex Assigned at Not on file Legal Sex Male 12:36 AM DIRECTOR NON PROFIT Gender Identity Not on file Sexual Orientation Not on file documented as of this encounter Plan of Treatment Not on file documented as of this encounter Visit Diagnoses Not on filedocumented in this encounter Additional Health Concerns Infection Onset Date Last Indicated Resolved Time R/O Respiratory 12/18/2023 12/18/2023 12/18/2023 1 0:55 PM DIRECTOR NON PROFIT documented as of this encounter Care Teams Mastic Man Relationship Specialty [place] [address] [place] [address] PCP - General 07/21/00 03/16/20 documented as of this encounter
--- OUTSIDE RECORDS SUMMARY | 2025-08-25 16:02 | XMS_ITS | Encounter Summary ---
Author Organization [employer] Address [address] [place] [address] Care Team Providers Care Mold Cleaning And Storage Supervisor Name Role Phone Vazquez Mcleod MD Primary Care Provider [phone] Encounter Details Date Type Department Care Team (Late st Contact Info) Description 05/31/2000 Outpatient Historical [facility] Medicine [address] [place] [phone] [place] [address] [place] [address] Social History Tobacco Use Types Packs/Day Years Used Date Smoking Tobacco: Never Assessed Sex and Gender Information Value Date Recorded Sex Assigned at Not on file Legal Sex Male 12:36 AM RESIDENT CARE PROVIDER Gender Identity Not on file Sexual Orientation Not on file documented as of this encounter Plan of Treatment Not on file documented as of this encounter Visit Diagnoses Not on filedocumented in this encounter Additional Health Concerns Infection Onset Date Last Indicated Resolved Time R/O Respiratory 12/18/2023 12/18/2023 12/18/2023 1 0:55 PM RESIDENT CARE PROVIDER documented as of this encounter Care Teams Mold Cleaning And Storage Supervisor Relationship Specialty Start [place] [address] [place] [address] PCP - General 07/21/00 03/16/20 documented as of this encounter
--- OUTSIDE RECORDS SUMMARY | 2025-08-25 16:02 | XMS_ITS | Encounter Summary ---
Author Organization [employer] Address [address] [place] [address] Care Team Providers Care Cell Attendant Name Role Phone Vazquez Mcleod MD Primary Care Provider [phone] Encounter Details Date Type Department Care Team (Late st Contact Info) Description 04/06/2001 Outpatient Historical [facility] Medicine [address] [place] [phone] [place] [address] [place] [address] Social History Tobacco Use Types Packs/Day Years Used Date Smoking Tobacco: Never Assessed Sex and Gender Information Value Date Recorded Sex Assigned at Not on file Legal Sex Male 12:36 AM SHINGLE CUTTER Gender Identity Not on file Sexual Orientation Not on file documented as of this encounter Plan of Treatment Not on file documented as of this encounter Visit Diagnoses Not on filedocumented in this encounter Additional Health Concerns Infection Onset Date Last Indicated Resolved Time R/O Respiratory 12/18/2023 12/18/2023 12/18/2023 1 0:55 PM SHINGLE CUTTER documented as of this encounter Care Teams Cell Attendant Relationship Specialty Start [place] [address] [place] [address] PCP - General 07/21/00 03/16/20 documented as of this encounter
== END 2025-08-25 15:34 | disposition home or self-care (01) ==
PROVIDERS: Visit Provider Urology
DX: N20.0 Calculus of kidney (principal)
CPT/HCPCS: 74018

== ENCOUNTER 2025-09-12 02:19 | Day surgery (SDC) | payer OTHER, SELFPAY ==
[2025-09-04 12:08] VITALS: BMI 30.5
--- NOTE | 2025-09-04 12:10 | PC.NURSE ---
[facility] has started construction of its new state of the art ER which will open Spring 2026. With this, we anticipate parking may be a challenge for some our surgical patients and families. Parking spaces are limited but are available for all Surgical, obstetrics, and ER patients sharing this lot. If you arrive and find you are having a hard time finding a parking space, please note that we understand the challenges, please drive around the hospital and park near Hospital Entrance 1. When you enter this entrance, you can ask a volunteer to direct or take you back to the surgical waiting area to check in. We appreciate everyone?s understanding of these expected challenges while we build for your future. Report to the Outpatient Waiting Room, entrance under the green pavilion located off [address], at time _1230_ on date _[id number]_. Planned Procedure Time: _230pm_.? Time changes happen often and if your time is changed the preop area will call you the afternoon before. - You and your visitor will be asked to self-screen and do not enter if you have any COVID symptoms. Please call surgeon if you need to reschedule. - A mask is optional within the hospital at this time. Patients may have clear liquids (water, carbonated beverages, clear teas, apple juice) until 3 hours prior to surgery with a maximum of 20 ounces. - No food from midnight until time of surgery and no smoking, or chewing tobacco (or any form of nicotine). No chewing gum, candy or mints. Take only the following medications with a SIP of water on the morning of surgery: ___Advair inhaler, nebulizer if needed, Hydrocodone if needed.____ DO NOT STOP ANY OF YOUR OTHER PRESCRIPTION MEDICATIONS PRIOR TO SURGERY EXCEPT THE FOLLOWING Hold all vitamins and supplements for 3 days per anesthesiologist. Medications to discontinue per physician ____Continue to hold meloxicam Date to take last dose Please no make-up, nail uruguayan, hairspray, perfume, deodorant, or body powder the day of surgery.? No jewelry (including any body piercings) or valuables the day of surgery, leave them at home.? Please take a shower or bath the night before, or the morning of, surgery with an antibacterial soap.? Wear comfortable, loose fitting clothing.? - Jewelry must be removed prior to entering the operating room.? Rings and piercings that are not removed may be cut off. - The hospital will not accept responsibility for valuables.? - Please leave all valuables, including medications, at home the day of surgery. If you are going home after surgery, a licensed sales route driver must drive you home.? - NO public transportation without another adult if you receive anesthesia. - We recommend that an adult stay with you for 24 hours following discharge. - We also recommend that you do not drive, make important decision, drink alcoholic beverages, or take any drugs that were not prescribed by your health care provider for at least 24 hours after your discharge time. Follow any additional instructions given to you from your surgeon. Telephone instructions given to __Tim__and asked if any additional questions and then verbalized understanding. Patient advised to call surgeon office or pre surgery nurse liaison [phone] if any additional questions.
[2025-09-12] VITALS (7 sets, daily range): BP systolic 132–151; BP diastolic 58–88; PULSE 81–90; RESP 12–20; TEMP 36.4–36.6; O2SAT 98–100
--- NOTE | ~2025-09-12 | XR_ITS ---
XR abdomen/kub 1V 09/12/2025 12:18 Indication: Preop ESWL. Renal stones. Procedure: KUB Comparison: Comparison to multiple prior studies sequentially, with oldest reviewed study dated 06/28/2024. Findings: Bilateral renal stones. Bowel gas pattern nonobstructive. Lung bases unremarkable. Mild lumbar spondylosis. Mild osteoarthritis of the hips. Impression: 1: Bilateral nephrolithiasis. Reviewed, dictated and finalized at location O. Impression: 1: Bilateral nephrolithiasis.
--- OUTSIDE RECORDS SUMMARY | 2025-09-12 02:21 | XMS_ITS | Encounter Summary ---
Author Organization [employer] Address [address] [place] [address] Care Team Providers Care Nurse Infection Control Name Role Phone Vazquez Mcleod MD Primary Care Provider Encounter Details Date Type Department Care Team (Late st Contact Info) Description 10/06/1999 Outpatient Historical [facility],NON-PATIENT Social History Tobacco Use Types Packs/Day Years Used Date Smoking Tobacco: Never Assessed Sex and Gender Information Value Date Recorded Sex Assigned at Not on file Legal Sex Male 12:36 AM LOCAL HAZMAT DRIVER Gender Identity Not on file Sexual Orientation Not on file documented as of this encounter Plan of Treatment Not on file documented as of this encounter Visit Diagnoses Not on filedocumented in this encounter Additional Health Concerns Infection Onset Date Last Indicated Resolved Time R/O Respiratory 12/18/2023 12/18/2023 12/18/2023 1 0:55 PM LOCAL HAZMAT DRIVER documented as of this encounter Care Teams Nurse Infection Control Relationship Specialty Start [place] [address] [place] [address] PCP - General 07/21/00 03/16/20 documented as of this encounter
--- OUTSIDE RECORDS SUMMARY | 2025-09-12 02:21 | XMS_ITS | Encounter Summary ---
Author Organization [employer] Address [address] [place] [address] Care Team Providers Care Pear Picker Name Role Phone Vazquez Mcleod MD Primary Care Provider [phone] Encounter Details Date Type Department Care Team (Late st Contact Info) Description 12/30/1999 Outpatient Historical [facility] Medicine 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 Gender Identity Not on file Sexual Orientation Not on file documented as of this encounter Plan of Treatment Not on file documented as of this encounter Visit Diagnoses Not on filedocumented in this encounter Additional Health Concerns Infection Onset Date Last Indicated Resolved Time R/O Respiratory 12/18/2023 12/18/2023 12/18/2023 1 0:55 PM INSTALLATION AND SERVICE TECHNICIAN documented as of this encounter Care Teams Pear Picker Relationship Specialty Start [place] [address] [place] [address] PCP - General 07/21/00 03/16/20 documented as of this encounter
--- OUTSIDE RECORDS SUMMARY | 2025-09-12 02:21 | XMS_ITS | Encounter Summary ---
Author Organization [employer] Address [address] [place] [address] Care Team Providers Care Neuro Ophthalmologist Name Role Phone Vazquez Mcleod MD Primary Care Provider [phone] Encounter Details Date Type Department Care Team (Late st Contact Info) Description 02/10/2000 Outpatient Historical [facility] Medicine [address] [place] [address] [place] [address] [place] [address] Social History Tobacco Use Types Packs/Day Years Used Date Smoking Tobacco: Never Assessed Sex and Gender Information Value Date Recorded Sex Assigned at Not on file Legal Sex Male 12:36 AM CASH POSTING REPRESENTATIVE Gender Identity Not on file Sexual Orientation Not on file documented as of this encounter Plan of Treatment Not on file documented as of this encounter Visit Diagnoses Not on filedocumented in this encounter Additional Health Concerns Infection Onset Date Last Indicated Resolved Time R/O Respiratory 12/18/2023 12/18/2023 12/18/2023 1 0:55 PM CASH POSTING REPRESENTATIVE documented as of this encounter Care Teams Neuro Ophthalmologist Relationship Specialty Start [place] [address] [place] [address] PCP - General 07/21/00 03/16/20 documented as of this encounter
--- OUTSIDE RECORDS SUMMARY | 2025-09-12 02:21 | XMS_ITS | Encounter Summary ---
Author Organization [employer] Address [address] [place] [address] Care Team Providers Care Communications Analyst Name Role Phone Vazquez Mcleod MD Primary Care Provider [phone] Encounter Details Date Type Department Care Team (Late st Contact Info) Description 03/11/1999 Outpatient Historical [facility] Medicine 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 Gender Identity Not on file Sexual Orientation Not on file documented as of this encounter Plan of Treatment Not on file documented as of this encounter Visit Diagnoses Not on filedocumented in this encounter Additional Health Concerns Infection Onset Date Last Indicated Resolved Time R/O Respiratory 12/18/2023 12/18/2023 12/18/2023 1 0:55 PM METAL SMELTER documented as of this encounter Care Teams Communications Analyst Relationship Specialty [place] [address] [place] [address] PCP - General 07/21/00 03/16/20 documented as of this encounter
--- OUTSIDE RECORDS SUMMARY | 2025-09-12 02:21 | XMS_ITS | Encounter Summary ---
Author Organization [facility] Address [facility] [place] [address] Care Team Providers Care High Lighter Name Role Phone Tawny Cooley NP Primary Care Provider [phone] Encounter Details Date Type Department Care Team (Late st Contact Info) Description 04/27/2019 Abstract [facility] CONVERSION [address] [place] [address] , Generic Conversion, Social History Tobacco Use Types Packs/Day Years Used Date Smoking Tobacco: Never Assessed Sex and Gender Information Value Date Recorded Sex Assigned at Male 09/01/2025 9:57 AM CDT Legal Sex Male 4:33 PM CDT Gender Identity Not on file Sexual Orientation Not on file documented as of this encounter Plan of Treatment Not on file documented as of this encounter Visit Diagnoses Not on filedocumented in this encounter Care Teams High Lighter Relationship Specialty Start Date End Date Tawny Cooley NP [address] [place] [address] PCP - General NURSE PRACTITIONER 09/01/25 documented as of this encounter
--- OUTSIDE RECORDS SUMMARY | 2025-09-12 02:21 | XMS_ITS | Encounter Summary ---
Author Organization [employer] Address [address] [place] [address] Care Team Providers Care Collect On Delivery Clerk Name Role Phone Vazquez Mcleod MD Primary Care Provider Encounter Details Date Type Department Care Team (Late st Contact Info) Description 06/03/1999 Outpatient Historical [facility] Medicine [address] [place] [phone] [place] [address] [place] [address] Social History Tobacco Use Types Packs/Day Years Used Date Smoking Tobacco: Never Assessed Sex and Gender Information Value Date Recorded Sex Assigned at Not on file Legal Sex Male 12:36 AM ART HISTORY PROFESSOR Gender Identity Not on file Sexual Orientation Not on file documented as of this encounter Plan of Treatment Not on file documented as of this encounter Visit Diagnoses Not on filedocumented in this encounter Additional Health Concerns Infection Onset Date Last Indicated Resolved Time R/O Respiratory 12/18/2023 12/18/2023 12/18/2023 1 0:55 PM ART HISTORY PROFESSOR documented as of this encounter Care Teams Collect On Delivery Clerk Relationship Specialty Start [place] [address] [place] [address] PCP - General 07/21/00 03/16/20 documented as of this encounter
--- OUTSIDE RECORDS SUMMARY | 2025-09-12 02:21 | XMS_ITS | Clinical Summary ---
Author Organization [facility] Address [address] [place] [address] Phone Care Team Providers Care Sander Hand Name Role Phone Unavailable Primary Care Provider [...] on file Legal Sex Male 12:36 AM ED EDUCATIONAL AIDE Gender Identity Not on file Sexual Orientation Not on file Last Filed Vital Signs Vital Sign Reading Time Taken Comments Blood Pressure 149/86 12/20/2023 12:07 PM ED EDUCATIONAL AIDE Pulse 91 12/20/2023 12:07 PM ED EDUCATIONAL AIDE Temperature 36.6 C (97.9 F) 12/20/2023 12:07 PM ED EDUCATIONAL AIDE Respiratory Rate 18 12/20/2023 12:07 PM ED EDUCATIONAL AIDE Oxygen Saturation 99% 12/20/2023 12:07 PM ED EDUCATIONAL AIDE Inhaled Oxygen Concentration - - Weight 83 kg (183 lb) 12/18/2023 8:21 PM ED EDUCATIONAL AIDE Height 165.1 cm (5' 5) 12/18/2023 8:21 PM ED EDUCATIONAL AIDE Body Mass Index 30.45 12/18/2023 8:21 PM ED EDUCATIONAL AIDE Plan of Treatment Health Maintenance Due Date Last Done Comments DTAP/TDAP/TD VACCINES (1 - Tdap) 1985 HEPATITIS B VACCINES (1 of 3 - 19+ 3-dose series) 03/20 COLORECTAL SCREENING 2011 Colorectal Cancer Screening 2011 FIT-DNA Q 3 years 2011 FIT/FOBT Q 1 year 2011 Flex Sig/CT Colonography Q 5 years 2011 ZOSTER VACCINE (1 of 2) 2016 INFLUENZA VACCINE (#1) 2025 09/09/2021 Insurance [employer] [facility] [email or web address] [id number] [employer] Advance Directives For more information, please contact: [phone] * Full Code (Latest Code Status on File) Date Activated Date Inactivated Comments 12/20/2023 8:19 AM 12/20/2023 3:34 PM * Full Code Date Activated Date Inactivated Comments 04/27/2010 3:13 AM 05/03/2010 3:39 PM * Full Code Date Activated Date Inactivated Comments 04/26/2010 11:50 PM 04/27/2010 3:13 AM
--- OUTSIDE RECORDS SUMMARY | 2025-09-12 02:21 | XMS_ITS | Clinical Summary ---
Author Organization [facility] Address [address] [place] [address] Care Team Providers Care Teacher [employer]ery [employer] Name Role Phone Lenora Tawny Correa NP Primary Care Provider [phone] Encounters Date Type Department Care Team Description 09/01/2025 10:20 AM CDT - 09/01/2025 11:59 PM CDT Hospital Encounter [facility] Diagnostic Imaging [address] [place] [address] Holden Figueroa MD Discharge Disposition: Home or Self Care (Routine Discharge) 09/01/2025 Travel from Last 3 Months Social History Tobacco Use Types Packs/Day Years [...] 1 - Tdap) 1985 Pneumococcal Vaccine: 50+ Years (1 of 1 - PCV) 2016 Zoster Vaccines (1 of 2) 2016 COVID-19 Vaccine ( - 2024-2 6 season) 2025 11/28/2021, 05/29/2021, 05/08/2021 Influenza Adult (#1) 2025 09/09/2021 Hepatitis A Vaccines Aged Out No long er eligible based on patient's age to complete this topic Meningococcal B Vaccine Aged Out No l onger eligible based on patient's age to complete this topic Meningococcal Vaccine Aged Out No iesha shmuel eligible based on patient's age to complete this topic RSV Immunizations Under 20 Months Aged Out No longer eligible b ased on patient's age to complete this topic Procedures Procedure Name Priority Date/Time Associated Diagnosis Comments XR ABD KUB Routine 09/01/2025 10:31 AM CDT Kidney stone from Last 3 Months Results * XR ABD KUB (09/01/2025 10:31 AM CDT) Anatomical Region Laterality Modality Abdomen Radiographic Agustina ging 09/02/2025 9:33 AM CDT Impressions 09/02/2025 9:36 AM CDT IMPRESSION: Suspected bilateral nephrolithiasis with large calcification overlying the lower pole of the RIGHT kidney measuring approximately 8.4 mm. Referred By: Interpreted By: Curtis Azul MD, 09/02/2025 9:33 AM Narrative 09/02/2025 9:36 [place] [address] Procedure(s): XR ABD KUB Date of service: 09/01/2025 10:23 AM Provided clinical information: 60 years, Male, stone Procedure and materials: Supine view of the abdomen. Comparison studies: None. Findings: There are numerous calculi are present overlying the expected location of the RIGHT and LEFT kidney. About the lower pole of the RIGHT kidney there is an 8.4 mm calcification concerning for a large calculus. No definite calculi present overlying the expected course of ureters or urinary bladder. Procedure Note Curtis Azul MD - 09/02/2025 [place] [id number] Procedure(s): XR ABD KUB Date of service: 09/01/2025 10:23 AM Provided clinical information: 60 years, Male, stone Procedure and materials: Supine view of the abdomen. Comparison studies: None. Findings: There are numerous calculi are present overlying the expected location ofthe RIGHT and LEFT kidney. About the lower pole of the RIGHT kidney thereis an 8.4 mm calcification concerning for a large calculus. No definitecalculi present overlying the expected course of ureters or urinarybladder. IMPRESSION: Suspected bilateral nephrolithiasis with large calcification overlying thelower pole of the RIGHT kidney measuring approximately 8.4 mm. Referred By: Interpreted By: Curtis Azul MD, 09/02/2025 9:33 AM us Holden Figueroa MD GENERAL IMAGING Final Result from Last 3 Months Insurance [facility] Care Teams Teacher Nursery School Relationship Specialty Start Date End Date Tawny Cooley NP [address] [place] [phone] PCP - General NURSE PRACTITIONER 09/01/25
--- OUTSIDE RECORDS SUMMARY | 2025-09-12 02:21 | XMS_ITS | Encounter Summary ---
Author Organization [facility] Address [address] [place] [address] Care Team Providers Care Cable Splicer Assistant Name Role Phone Ligiaeugenia Tawny KNAPP-HELPER MARBLE FINISHER Primary Care Provider + Akil Figueroa MD Unavailable Encounter Details Date Type Department Care Team (Late st Contact Info) Description 06/28/2024 Op/Procedure Report External [facility] [address] [place] [address] Document, Scanned Social History Tobacco Use Types [...] Sex Assigned at Male 10/21/2024 11:57 AM WATERPROOF COATING MACHINE TENDER Legal Sex Male 5:38 AM WATERPROOF COATING MACHINE TENDER Gender Identity Male 10/21/2024 11:57 AM WATERPROOF COATING MACHINE TENDER Sexual Orientation Straight 10/21/2024 11 :57 AM WATERPROOF COATING MACHINE TENDER documented as of this encounter Functional [...] Team (Late st Contact Info) Description 09/19/2025 11:15 AM CDT Office Visit [address] [address] Tawny Cooley APRN-CNP [address] [place] [phone] 01/16/2026 2:45 PM WATERPROOF COATING MACHINE TENDER Office Visit [address] [address] Tawyn Cooley APRN-CNP [address] [place] [phone] documented as of this encounter Visit Diagnoses Not on filedocumented in this encounter Additional Health Concerns Infection Onset Date Last Indicated Resolved Time COVID-19 Under Investigation 12/04/2024 12/04/2024 12/04/2024 2:14 PM WATERPROOF COATING MACHINE TENDER documented as of this encounter Care Teams Cable Splicer Assistant Relationship Specialty Start Date End Date Tawny Cooley APRN-CNP PCP - General Nurse Practitioner Family 04/24/20 Akil Figureoa MD [address] [facility] [address] [facility] [address] [place] [address] Urology 07/23/24 documented as of this encounter
--- OUTSIDE RECORDS SUMMARY | 2025-09-12 02:21 | XMS_ITS | Encounter Summary ---
Author Organization [employer] Address [address] [place] [address] Care Team Providers Care Air Conditioning Installer Name Role Phone Vazquez Mcleod MD Primary Care Provider [phone] Encounter Details Date Type Department Care Team (Late st Contact Info) Description 03/04/1999 Outpatient Historical [facility] Medicine [address] [place] [phone] [place] [address] [place] [address] Social History Tobacco Use Types Packs/Day Years Used Date Smoking Tobacco: Never Assessed Sex and Gender Information Value Date Recorded Sex Assigned at Not on file Legal Sex Male 12:36 AM SHADING PAINTER Gender Identity Not on file Sexual Orientation Not on file documented as of this encounter Plan of Treatment Not on file documented as of this encounter Visit Diagnoses Not on filedocumented in this encounter Additional Health Concerns Infection Onset Date Last Indicated Resolved Time R/O Respiratory 12/18/2023 12/18/2023 12/18/2023 1 0:55 PM SHADING PAINTER documented as of this encounter Care Teams Air Conditioning Installer Relationship Specialty [place] [address] [place] [address] PCP - General 07/21/00 03/16/20 documented as of this encounter
--- OUTSIDE RECORDS SUMMARY | 2025-09-12 02:21 | XMS_ITS | Encounter Summary ---
Author Organization [employer] Address [address] [place] [address] Care Team Providers Care Physical Therapy Aide Name Role Phone Vazquez Mcleod MD Primary Care Provider [phone] Encounter Details Date Type Department Care Team [...] on file Legal Sex Male 12:36 AM SHOVEL MECHANIC Gender Identity Not on file Sexual Orientation Not on file documented as of this encounter Plan of Treatment Not on file documented as of this encounter Visit Diagnoses Diagnosis Unspecified asthma(493.90)- Primary Unspecified asthma documented in this encounter Additional Health Concerns Infection Onset Date Last Indicated Resolved Time R/O Respiratory 12/18/2023 12/18/2023 12/18/2023 1 0:55 PM SHOVEL MECHANIC documented as of this encounter Care Teams Physical Therapy Aide Relationship Specialty [place] [address] [facility] [address] [place] [phone] PCP - General 07/21/00 03/16/20 documented as of this encounter
--- OUTSIDE RECORDS SUMMARY | 2025-09-12 02:21 | XMS_ITS | Encounter Summary ---
Author Organization [employer] Address [address] [place] [address] Care Team Providers Care Teacher Physically Impaired Name Role Phone Vazquez Mcleod MD Primary Care Provider Encounter Details Date Type Department Care Team (Latest Contact Info) Description 12/14/1998 Outpatient Historical [facility] [place] [address] [place] [address] Chest pain, unspecified (Primary Dx) Social History Tobacco Use Types Packs/Day Years Used Date Smoking Tobacco: Never Assessed Sex and Gender Information Value Date Recorded Sex Assigned at Not on file Legal Sex Male 12:36 AM TECHNOLOGY INTERNSHIP Gender Identity Not on file Sexual Orientation Not on file documented as of this encounter Plan of Treatment Not on file documented as of this encounter Visit Diagnoses Diagnosis Chest pain, unspecified- Primary documented in this encounter Additional Health Concerns Infection Onset Date Last Indicated Resolved Time R/O Respiratory 12/18/2023 12/18/2023 12/18/2023 1 0:55 PM TECHNOLOGY INTERNSHIP documented as of this encounter Care Teams Teacher Physically Impaired Relationship Specialty Start [place] [address] [place] [address] PCP - General 07/21/00 03/16/20 documented as of this encounter
--- OUTSIDE RECORDS SUMMARY | 2025-09-12 02:21 | XMS_ITS | Encounter Summary ---
Author Organization [employer] Address [address] [place] [address] Care Team Providers Care Nuclear Radiation Engineer Name Role Phone Vazquez Mcleod MD Primary Care Provider [phone] Encounter Details Date Type Department Care Team (Late st Contact Info) Description 10/06/1999 Outpatient Historical [facility] Medicine [address] [place] [phone] Anastacio Gutierrez MD NO ADDRESS ON FILE Social History Tobacco Use Types Packs/Day Years Used Date Smoking Tobacco: Never Assessed Sex and Gender Information Value Date Recorded Sex Assigned at Not on file Legal Sex Male 12:36 AM MEDICAL OFFICE RECEPTIONIST ASSISTANT Gender Identity Not on file Sexual Orientation Not on file documented as of this encounter Plan of Treatment Not on file documented as of this encounter Visit Diagnoses Not on filedocumented in this encounter Additional Health Concerns Infection Onset Date Last Indicated Resolved Time R/O Respiratory 12/18/2023 12/18/2023 12/18/2023 1 0:55 PM MEDICAL OFFICE RECEPTIONIST ASSISTANT documented as of this encounter Care Teams Nuclear Radiation Engineer Relationship Specialty Start [place] [address] [place] [phone] PCP - General 07/21/00 03/16/20 documented as of this encounter
--- OUTSIDE RECORDS SUMMARY | 2025-09-12 02:21 | XMS_ITS | Encounter Summary ---
Author Organization [employer] Address [address] [place] [address] Care Team Providers Care Apparel Stock Checker Name Role Phone Vazquez Mcleod MD Primary Care Provider Encounter Details Date Type Department Care Team (Late st Contact Info) Description 12/15/1999 Outpatient Historical [facility] Medicine [address] [place] [phone] Anastacio Gutierrez MD NO ADDRESS ON FILE Social History Tobacco Use Types Packs/Day Years Used Date Smoking Tobacco: Never Assessed Sex and Gender Information Value Date Recorded Sex Assigned at Not on file Legal Sex Male 12:36 AM STEAM PLANT RECORDS CLERK Gender Identity Not on file Sexual Orientation Not on file documented as of this encounter Plan of Treatment Not on file documented as of this encounter Visit Diagnoses Not on filedocumented in this encounter Additional Health Concerns Infection Onset Date Last Indicated Resolved Time R/O Respiratory 12/18/2023 12/18/2023 12/18/2023 1 0:55 PM STEAM PLANT RECORDS CLERK documented as of this encounter Care Teams Apparel Stock Checker Relationship Specialty [place] [address] [place] [phone] PCP - General 07/21/00 03/16/20 documented as of this encounter
--- OUTSIDE RECORDS SUMMARY | 2025-09-12 02:22 | XMS_ITS | Encounter Summary ---
Author Organization [employer] Address [address] [place] [address] Care Team Providers Care Brineyard Supervisor Name Role Phone Vazquez Mcleod MD Primary Care Provider [phone] Encounter Details Date Type Department Care Team (Late st Contact Info) Description 05/29/2000 Outpatient Historical [facility] Medicine [address] [place] [phone] [place] [address] [place] [address] Social History Tobacco Use Types Packs/Day Years Used Date Smoking Tobacco: Never Assessed Sex and Gender Information Value Date Recorded Sex Assigned at Not on file Legal Sex Male 12:36 AM MEDICAL BILLING ASSISTANT Gender Identity Not on file Sexual Orientation Not on file documented as of this encounter Plan of Treatment Not on file documented as of this encounter Visit Diagnoses Not on filedocumented in this encounter Additional Health Concerns Infection Onset Date Last Indicated Resolved Time R/O Respiratory 12/18/2023 12/18/2023 12/18/2023 1 0:55 PM MEDICAL BILLING ASSISTANT documented as of this encounter Care Teams Brineyard Supervisor Relationship Specialty Start [place] [address] [place] [address] PCP - General 07/21/00 03/16/20 documented as of this encounter
--- OUTSIDE RECORDS SUMMARY | 2025-09-12 02:22 | XMS_ITS | Clinical Summary ---
Author Organization [facility] [employer] Address [address] [place] [address] Care Team Providers Care Office Electrician Name Role Phone Lenora Tawny KNAPP-TON CONTAINER SHIPPER Primary Care Provider + Akil Figueroa MD Unavailable Source Comments [facility],non-owned Affiliates and Associated Physician Practices is amultiple site organization consisting of ambulatory clinics and hospital sitesin [place], [place], [place] and [place]. This disclosure is being madepursuant to the Care Everywhere program and may not contain all information available regarding this patient. Last updated 18.[facility] [employer] Allergies Active Allergy Reactions Criticality Noted Date [...] MOUTH ONCE DAILY FOR 10 DAYS 08/18/20 Active tacrolimus (Protopic) 0.1 % ointment APPLY 1 GRAM TOPICALLY TO ITCHY OR THICKENED BUMPS ON EXTREMITIES TWICE DAILY NEEDED 08/11/20 25 Active HYDROcodone-acet aminophen (Elmira) 7.5-325 MG tabletIndication s:Acute right flank pain Take 1 (one) tablet by mouth every 12 hours as needed for Pain 60 tablet 08/21/20 25 Active ciprofloxacin (Cipro) 500 MG tabletIndication s:Urinary tract infection with hematuria, site unspecified Take 1 (one) tablet by mouth 2 times daily 14 tablet 07/18/20 25 025 Discontinu ed(Tx Complete) HYDROcodone-acet aminophen ([place]mira) 5-325 MG tablet Take 1 (one) tablet by mouth every 6 hours as needed pain 08/18/20 25 025 Discontinu ed(Tx Complete) levoFLOXacin (Levaquin) 750 MG tabletIndication s:Dysuria Take 1 (one) tablet by mouth once daily for 7 days 7 tablet 08/21/20 25 025 Hospital, Clinic, or Other Facility Administered Medication [...] Encounters Date Type Department Care Team Description 08/27/2025 1:18 PM CDT - 08/27/2025 3:43 PM CDT Emergency [facility] - Emergency Department [address] [place] [address] [phone] Evan Kincaid, SHOE PACKER-TON CONTAINER SHIPPER Right flank pain; Kidney stone; Hydronephrosis with renal and ureteral calculus obstruction Discharge Disposition: Home or Self Care 08/27/2025 Travel 08/22/2025 9:53 PM CDT - 08/22/2025 11:26 [place] [address] Miguel Wall MD Allergic reaction, initial encounter Discharge Disposition: Home or Self Care 08/22/2025 Travel 08/21/2025 4:00 PM CDT Office Visit [facility]- Family Medicine [address] [place] [phone] Jonas Maguire MD Acute right flank pain (Primary Dx); Kidney stones; Dysuria 08/19/[address] [phone] Tawny Cooley APRN-CNP Appointment 08/18/2025 Orders Only [address] [phone] Tawny Cooley APRN-CNP Mixed hyperlipidemia ; Prediabetes 08/09/2025 9:07 AM CDT - 08/09/2025 11:59 PM CDT Hospital Encounter [facility] - Cardiac Rehab [address] [place] [address] [phone] Unknown, Provider Hospitalist Discharge Disposition: Home or Self Care 08/09/2025 9:03 AM CDT - 08/09/2025 9:06 AM CDT Hospital Encounter [facility] - Laboratory [address] [place] [phone] Leonard Mccallum MD Hoffmann, Sandra S, MD Unknown, Provider Discharge Disposition: Home or Self Care 07/30/2025 8:44 AM CDT - 07/30/2025 11:59 PM CDT Hospital Encounter [facility]-MRI [address] [place] [phone] Tawny Cooley APRN-CNP Discharge Disposition: Home or Self Care 07/30/2025 Orders Only [address] [phone] Tawny Cooley APRN-CNP Partial tear of common extensor tendon of right elbow ; Tendinopathy of elbow, right 07/30/2025 Results Follow-Up [address] [phone] Tawny Cooley APRN-CNP Results 07/24/[address] [phone] Tawny Cooley APRN-CNP Durable Medical Equipment 07/21/2025 Results Follow-Up [facility] [address] [place] [phone] Tawny Cooley APRN-CNP Results 07/18/2025 4:46 PM CDT - 07/18/2025 11:59 PM CDT Hospital Encounter [facility] - Laboratory [address] [place] [phone] Tawny Cooley APRN-CNP Discharge Disposition: Home or Self Care 07/18/2025 3:15 PM CDT Office Visit [facility] [address] [place] [phone] Tawny Cooley APRN-CNP Mild intermittent asthma, unspecified [...] Months Immunizations Immunization Administration Dates Next Due [facility] primary monoval ent 12+ yr 0.3mL Purple [...] Sex Assigned at Male 10/21/2024 11:57 AM RESEARCH PHYSIOLOGIST Legal Sex Male 5:38 AM RESEARCH PHYSIOLOGIST Gender Identity Male 10/21/2024 11:57 AM RESEARCH PHYSIOLOGIST Sexual Orientation Straight 10/21/2024 11 :57 AM RESEARCH PHYSIOLOGIST Last Filed Vital Signs Vital Sign Reading Time Taken Comments Blood Pressure 141/69 08/27/2025 3:42 PM CDT Pulse 76 08/27/2025 3:42 PM CDT Temperature 36.8 C (98.3 F) 08/27/2025 1:26 PM CDT Respiratory Rate 18 08/27/2025 3:42 PM CDT Oxygen Saturation 97% 08/27/2025 3:42 PM CDT Inhaled Oxygen Concentration 21% 08/13/2016 9 :35 PM CDT Weight 83.5 kg (184 lb) 08/27/2025 1:26 PM CDT Height 165.1 cm (5' 5) 08/27/2025 1:26 PM CDT Body Mass Index 30.62 08/27/2025 1:26 PM CDT Plan of Treatment Upcoming Encounters Date Type Department Care Team (Late st Contact Info) Description 09/19/2025 11:15 AM CDT Office Visit [address] [phone] Tawny Cooley APRN-CNP [address] [place] [phone] 01/16/2026 2:45 PM RESEARCH PHYSIOLOGIST Office Visit [address] [phone] Tawny Cooley APRN-CNP [address] [place] [phone] Health Maintenance Due Date Last Done Comments [...] from 2016 (Insurance Coverage) SCREENING FOR DIABETES 08/27/2028 , 08/09/2025, 08/09/2025, Additional history exists COLON MONITORING 04/03/2030 04/03/2020 [...] Procedure Name Priority Date/Time Associated Diagnosis Comments CT ABDOMEN PELVIS WO CONTRAST STAT 08/27/2025 2:11 PM CDT Right flank pain URINE MICROSCOPIC ONLY REFLEX TO CULTURE STAT 08/27/2025 1:55 PM CDT URINALYSIS REFLEX MICROSCOPIC REFLEX CULTURE STAT 08/27/2025 1:55 PM CDT URINE CULT RST RFLXED Routine 08/27/2025 1:55 PM CDT CULTURE URINE STAT 08/27/2025 1:55 PM CDT MAGNESIUM BLOOD STAT 08/27/2025 1:49 PM CDT COMPREHENSIVE METABOLIC PANEL STAT 08/27/2025 1:49 PM CDT CBC W AUTO DIFFERENTIAL STAT 08/27/2025 1:49 PM CDT LIPID PROFILE Routine 08/09/2025 10:11 AM CDT [...] URINALYSIS DIPSTICK - POINT OF CARE (AMB) [facility] Routine 07/18/2025 4:30 PM CDT Dysuria URINE CULT RST RFLXED Routine 07/18/2025 4:15 PM CDT Urinary tract infection with hematuria, site unspecified CULTURE URINE Routine 07/18/2025 4:15 PM CDT Urinary tract infection with hematuria, site unspecified from Last 3 Months Results * CT Abdomen Pelvis Wo Contrast (08/27/2025 2:11 PM CDT) Anatomical Region Laterality Modality Abdomen, Pelvis Computed Tomogra phy 08/27/2025 2:23 PM CDT Impressions 08/27/2025 2:29 PM CDT Impression: Bilateral nephrolithiasis. Various areas of stone debris within the right kidney and right ureter suggesting prior stone fragmentation with multiple stone fragments in the bladder. However, there is now a mild to moderate right hydroureter ureter and hydronephrosis. > Interpreting Provider: Popeye Field MD on 08/27/2025 2:29 PM Narrative 08/27/2025 2:29 PM CDT PROCEDURE: CT ABDOMEN PELVIS WO CONTRAST DATE/TIME OF EXAM: 08/27/2025 2:12 PM CLINICAL INFORMATION: None relevant/not provided if blank. Indication: R10.A1: Right flank pain Additional History: History kidney stones COMPARISON: 06/19/2024 TECHNIQUE: CT of the abdomen and pelvis was performed without oral or intravenous contrast. CT dose reduction technique was used, including Automated Exposure Control. FINDINGS: The lung bases shows a hazy right lateral subpleural lung nodule, stable consistent with an 3 mm area of scarring image 8 of 145. Lingular atelectasis. No pneumoperitoneum. No intrahepatic biliary duct dilatation. No generalized gastric wall thickening. No calcified gallstones or gallbladder wall thickening. No peripancreatic inflammatory change. No pancreatic duct distention. The adrenal glands normal in size. Multifocal bilateral nephrolithiasis. This includes a large stone right posterior lower pole measuring 11.2 mm. In addition, the right hydronephrosis is upper end of mild periureteral inflammatory changes in ureter distention down into the pelvis where there are stones in the right UVJ measuring cephalocaudal 9.4, medial collateral 3.3 mm. This suggests passage of multiple stones down the right ureter if there has not been with lithotripsy. The left kidney again shows multifocal nephrolithiasis with an exophytic mass posterior interpolar Hounsfield -7 consistent with a simple 3.6 cm cyst for which no additional imaging recommended. No left ureter stone. No small bowel transition zone. No generalized small bowel wall. The appendix is normal in caliber. Fecal retention. The pelvis, the generalized sigmoid wall thickening. This examination is not sensitive in assessment process for mucosal pathology.. Calcifications in the bladder are multiple suggesting extension of multifocal stone debris into the bladder prostate contains calcic cases but is otherwise normal in size. No inguinal, obturator, or iliac chain adenopathy. Procedure Note Popeye Field MD - 08/27/2025 PROCEDURE: CT ABDOMEN PELVIS WO CONTRAST DATE/TIME OF EXAM: 08/27/2025 2:12 PM CLINICAL INFORMATION: None relevant/not provided if blank. Indication: R10.A1: Right flank pain Additional History: History kidney stones COMPARISON: 06/19/2024 TECHNIQUE: CT of the abdomen and pelvis was performed without oral or intravenous contrast. CT dose reduction technique was used, including Automated ExposureControl. FINDINGS: The lung bases shows a hazy right lateral subpleural lung nodule, stable consistent with an 3 mm area of scarring image 8 of 145. Lingular atelectasis. No pneumoperitoneum. No intrahepatic biliary duct dilatation. No generalized gastric wall thickening. No calcified gallstones orgallbladder wall thickening. No peripancreatic inflammatory change. No pancreaticduct distention. The adrenal glands normal in size. Multifocal bilateral nephrolithiasis. This includes a large stone right posterior lower pole measuring 11.2 mm. In addition, the right hydronephrosis is upper end of mild periureteral inflammatory changes in ureter distention down into the pelvis where there are stones in theright UVJ measuring cephalocaudal 9.4, medial collateral 3.3 mm. This suggests passage of multiple stones down the right ureter if there has not beenwith lithotripsy. The left kidney again shows multifocal nephrolithiasis withan exophytic mass posterior interpolar Hounsfield -7 consistent with asimple 3.6 cm cyst for which no additional imaging recommended. No left ureter stone. No small bowel transition zone. No generalized small bowel wall. The appendix is normal in caliber. Fecal retention. The pelvis, the generalized sigmoid wall thickening. This examination is not sensitive in assessment process for mucosal pathology..Calcifications in the bladder are multiple suggesting extension of multifocal stonedebris into the bladder prostate contains calcic cases but is otherwise normalin size. No inguinal, obturator, or iliac chain adenopathy. Impression: Bilateral nephrolithiasis. Various areas of stone debris within theright kidney and right ureter suggesting prior stone fragmentation withmultiple stone fragments in the bladder. However, there is now a mild to moderate right hydroureter ureter and hydronephrosis. > Interpreting Provider: Popeye Field MD on 08/27/2025 2:29 PM Evan Kincaid SHOE PACKER-TON CONTAINER SHIPPER CT ORDERABLES Edited R esult - Final * (ABNORMAL) URINE MICROSCOPIC ONLY REFLEX TO CULTURE (08/27/2025 1:55 PM CDT) WBC UA 5-10(A) None Seen, 0-4 # /hpf 08/27/2025 2:15 PM CDT [facility] ([facility]) RBC UA 3-5(A) None Seen, 0-2 # /hpf 08/27/2025 2:15 PM CDT [facility] ([facility]) Epithelial Cell UA Few None, Few # /hpf 08/27/2025 2:15 PM CDT [facility] ([facility]) Bacteria UA Few None, Few, Rare 08/27/2025 2:15 PM CDT [facility] ([facility]) Mucus UA Small Amount None, Small Amount 08/27/2025 2:15 PM CDT [facility] ([facility]) Urine URINE SPECIMEN OBTAINED BY CLEAN CATCH PROCEDURE / Unknown Collection / Unknown 08/27/2025 1:55 PM CDT 08/27/2025 1:55 PM CDT Evan Kincaid SHOE PACKER-TON CONTAINER SHIPPER LAB - URINALYSIS ORDERAB LES Final Result Performing Organization Address [facility]/ZIP Co de Phone Number [facility] ([facility]) [address] [place] [address] * URINE CULT RST RFLXED (08/27/2025 1:55 PM CDT) Only the most recent of3 resultswithin the time period is included. Result 1 No growth 08/30/2025 2:06 AM CDT [facility] ([facility]) Urine URINE SPECIMEN OBTAINED BY CLEAN CATCH PROCEDURE / Unknown Collection / Unknown 08/27/2025 1:55 PM CDT 08/27/2025 1:55 PM CDT Narrative [facility] ([facility]) - 08/30/2025 2:06 AM CDT Performed at: [facility] [id number] Building Energy Consultant: Geovany Johnston PhD, Phone: [phone] Evan Kincaid SHOE PACKER-TON CONTAINER SHIPPER LAB - MICROBIOLOGY ORDER ROBERT Final Result Performing Organization Address City/[facility]/ZIP Co de Phone Number [email or web address]) [address] [place] [address] * (ABNORMAL) URINALYSIS REFLEX MICROSCOPIC REFLEX CULTURE (08/27/2025 1:55 PM CDT) Color UA Yellow Yellow, Natalia 08/27/2025 2:07 PM CDT [facility] ([facility]) Clarity UA Clear Clear, Hazy 08/27/2025 2:07 PM T [facility] ([facility]) Specific Hyde UA 1.015 1.000, 1.005, 1.010, 1.015, 1.020, 1.025 08/27/2025 2:07 PM T [facility] ([facility]) pH UA 6.5 5.0, 5.5, 6.0, 6.5, 7.0, 7.5, 8.0, Color Interference 08/27/2025 2:07 PM CDT [facility] ([facility]) Protein UA 30 mg/dL(A) Negative 08/27/2025 2:07 PM T [facility] ([facility]) Glucose UA Negative Negative, Color Interference 08/27/2025 2:07 PM T [facility] ([facility]) Ketone UA Negative Negative 08/27/2025 2:07 PM CDT [facility] ([facility]) Bilirubin UA Negative Negative 08/27/2025 2:07 PM CDT [facility] ([facility]) Blood UA Moderate(A) Negative 08/27/2025 2:07 PM T [facility] ([facility]) Leukocyte Esterase UA Trace(A) Negative 08/27/2025 2:07 PM CDT [facility] ([facility]) Nitrite UA Negative Negative 08/27/2025 2:07 PM T [facility] ([facility]) Urobilinogen UA 0.2 0.2, 1.0 2:07 PM T [facility] ([facility]) Urine Microscopy Urine microscopy to follow 08/27/2025 2:07 PM T [facility] ([facility]) Urine URINE SPECIMEN OBTAINED BY CLEAN CATCH PROCEDURE / Unknown Collection / Unknown 08/27/2025 1:55 PM CDT 08/27/2025 1:55 PM CDT us Evan Kincaid SHOE PACKER[employer]TON CONTAINER SHIPPER LAB - URINALYSIS ORDERAB LES Final Result [facility] ([facility]) [address] [place] [address] * CULTURE URINE (08/27/2025 1:55 PM CDT) Only the most recent of3 resultswithin the time period is included. [facility] Urine Culture Routine Final report 08/30/2025 2:06 AM CDT [facility]) Urine URINE SPECIMEN OBTAINED BY CLEAN CATCH PROCEDURE / Unknown Collection / Unknown 08/27/2025 1:55 PM CDT 08/27/2025 1:55 PM CDT Narrative [facility] ([facility]) - 08/30/2025 2:06 AM CDT Performed at: [address] [place] [id number] Building Energy Consultant: Geovany Johnston PhD, Phone: [phone] Evan Kincaid SHOE PACKER-TON CONTAINER SHIPPER LAB - MICROBIOLOGY ORDER ROBERT Final Result [facility]) [address] [place] [address] * (ABNORMAL) CBC W AUTO DIFFERENTIAL (08/27/2025 1:49 PM CDT) Only the most recent of2 resultswithin the time period is included. [facility] WBC 11.0(H) 4.0 - 10.0 K/uL 08/27/2025 1:54 PM CDT [facility] ([facility]) RBC 5.4 4.2 - 5.7 M/ul 08/27/2025 1:54 PM CDT [facility] ([facility]) Hemoglobin 15.0 13.0 - 18.0 g/dL 08/27/2025 1:54 PM CDT [facility] ([facility]) Hematocrit 45.0 38.0 - 51.0 % 08/27/2025 1:54 PM CDT [facility] ([facility]) MCV 83.0 82.0 - 98.0 fL 08/27/2025 1:54 PM CDT [facility] ([facility]) MCH 27.7 27.0 - 34.0 pg 08/27/2025 1:54 PM CDT [facility] ([facility]) MCHC 33.3 32.0 - 35.0 g/dL 08/27/2025 1:54 PM CDT [facility] ([facility]) RDW-CV 14.0 11.4 - 14.6 % 08/27/2025 1:54 PM T [facility] ([facility]) Platelet Count 344 120 - 410 K/uL 08/27/2025 1:54 PM CDT [facility] ([facility]) MPV 8.7 5.2 - 12.8 fL 08/27/2025 1:54 PM CDT [facility] ([facility]) Neutrophils % 63.5 25.0 - 78.0 % 08/27/2025 1:54 PM CDT [facility] ([facility]) Lymphocytes % 23.8 10.0 - 50.0 % 08/27/2025 1:54 PM CDT [facility] ([facility]) Monocytes % 8.3 0.0 - 11.0 % 08/27/2025 1:54 PM CDT [facility] ([facility]) Eosinophils % 3.7(H) 0.0 - 3.0 % 08/27/2025 1:54 PM CDT [facility] ([facility]) Basophils % 0.3 0.0 - 1.5 % 08/27/2025 1:54 PM CDT [facility] ([facility]) Neutrophil Absolute 7.0(H) 2.0 - 6.9 K/uL 08/27/2025 1:54 PM CDT [facility] ([facility]) Lymphocyte Absolute 2.6 0.6 - 4.6 K/uL 08/27/2025 1:54 PM CDT [facility] ([facility]) Monocyte Absolute 0.9 0.0 - 0.9 K/uL 08/27/2025 1:54 PM CDT [facility] ([facility]) Eosinophil Absolute 0.4 0.0 - 0.7 K/uL 08/27/2025 1:54 PM CDT [facility] ([facility]) Basophil Absolute 0.0 0.0 - 0.2 K/uL 08/27/2025 1:54 PM CDT [facility] ([facility]) Immature Granulocytes % 0.4 0.0 - 0.5 % 08/27/2025 1:54 PM CDT [facility] ([facility]) Immature Granulocytes Absolute 0.04(H) 0.00 - 0.03 K/UL 08/27/2025 1:54 PM CDT [facility] ([facility]) Blood BLOOD SPECIMEN / Unknown Line Draw / Unknown 08/27/2025 1:49 PM CDT 08/27/2025 1:49 PM CDT us Evan Eduardotoy SHOE PACKER[employer] CONTAINER SHIPPER LAB - HEMATOLOGY ORDERAB LES Final Result [facility] ([facility]) [address] [place] [address] * (ABNORMAL) COMPREHENSIVE METABOLIC PANEL (08/27/2025 1:49 PM CDT) Only the most recent of2 resultswithin the time period is included. Sodium 140 137 - 145 mmol/L 08/27/2025 2:07 PM CDT [facility] ([facility]) Potassium 4.1 3.6 - 5.0 mmol/L 08/27/2025 2:07 PM T [facility] ([facility]) Chloride 106 98 - 107 mmol/L 08/27/2025 2:07 PM T [facility] ([facility]) Carbon Dioxide 25 21 - 31 mmol/L 08/27/2025 2:07 PM T [facility] ([facility]) Glucose 110(H) 75 - 100 mg/dL 08/27/2025 2:07 PM T [facility] ([facility]) BUN 19(H) 7 - 17 mg/dL 08/27/2025 2:07 PM T [facility] ([facility]) Creatinine 1.00 0.66 - 1.25 mg/dL 08/27/2025 2:07 PM T [facility] ([facility]) eGFR 76 >=60 ml/min/1.7 3*2 08/27/2025 2:07 PM T [facility] ([facility]) Comment: Chronic kidney disease is defined [...] Test will not be performed. BUN/Creatinine Ratio 18.8 6.0 - 26.0 08/27/2025 2:07 PM T [facility] ([facility]) Calcium 9.8 8.4 - 10.7 mg/dL 08/27/2025 2:07 PM T [facility] ([facility]) Protein Total 7.0 6.3 - 8.2 g/dL 08/27/2025 2:07 PM T [facility] ([facility]) Albumin 4.0 3.9 - 5.0 g/dL 08/27/2025 2:07 PM T [facility] ([facility]) Albumin/Globulin Ratio 1.3 1.1 - 2.2 g/dL 08/27/2025 2:07 PM T [facility] ([facility]) Bilirubin Total 0.5 0.2 - 1.3 mg/dL 08/27/2025 2:07 PM T [facility] ([facility]) Alkaline Phosphatase 96 38 - 126 U/L 08/27/2025 2:07 PM T [facility] ([facility]) AST 30 14 - 50 U/L 08/27/2025 2:07 PM T [facility] ([facility]) ALT 58(H) 9 - 52 U/L 08/27/2025 2:07 PM T [facility] ([facility]) Blood BLOOD SPECIMEN / Unknown Line Draw / Unknown 08/27/2025 1:49 PM CDT 08/27/2025 1:49 PM CDT us Evan Kincaid [employer] LAB - CHEMISTRY ORDERABL ES Final Result [facility] ([facility]) [address] [place] [address] * (ABNORMAL) MAGNESIUM BLOOD (08/27/2025 1:49 PM CDT) [facility] Magnesium 2.4(H) 1.6 - 2.3 mg/dL 08/27/2025 2:07 PM CDT [facility] ([facility]) Blood BLOOD SPECIMEN / Unknown Line Draw / Unknown 08/27/2025 1:49 PM CDT 08/27/2025 1:49 PM CDT Evan Kincaid SH[employer] P[employer] CONTAINER SH[employer] LAB - CHEMISTRY ORDERABL ES Final Result Performing Organization Address [facility]/ZIP Co de Phone Number [facility] ([facility]) [address] [place] [address] * (ABNORMAL) HEMOGLOBIN A1C (08/09/2025 10:11 AM CDT) [facility] Hemoglobin A1c 5.9(H) 0.0 - 5.7 % 08/09/2025 11:38 AM CDT [facility] ([facility]) Estimated Average Glucose 122.63 mg/dL 08/09/2025 11:38 AM CDT [facility] ([facility]) Blood BLOOD SPECIMEN / Unknown Lab Venipuncture / Unknown 08/09/2025 10:11 AM CDT 08/09/2025 10:11 AM CDT Narrative [facility] ([facility]) - 08/09/2025 11:38 AM CDT [employer] [employer] Suggested Interpretation: 5.7-6.4% Hemoglobin A1c = Prediabetes >6.5% Hemoglobin A1c = Consistent with Diabetes Tawny Cooley [employer] LAB - CHEMISTRY ORDERABL ES Final Result Performing Organization Address [facility]/ZIP Co de Phone Number [facility] ([facility]) [address] [place] [phone] * (ABNORMAL) VITAMIN D 25-HYDROXY (08/09/2025 10:11 AM CDT) [facility] Vitamin D, 25 Hydroxy 28(L) 30 - 100 ng/mL 08/09/2025 12:19 PM CDT [facility] ([facility]) Blood BLOOD SPECIMEN / Unknown Lab Venipuncture / Unknown 08/09/2025 10:11 AM CDT 08/09/2025 10:11 AM CDT MeezN-TON CONTAINER SHIPPER LAB - CHEMISTRY ORDERABL ES Final Result Performing Organization Address [facility]/ZIP Co de Phone Number [facility] ([facility]) [address] [place] [address] * VITAMIN B12 (08/09/2025 10:11 AM CDT) Vitamin B12 396 232 - 1245 pg/mL 08/11/2025 12:07 PM CDT [facility]) Blood BLOOD SPECIMEN / Unknown Lab Venipuncture / Unknown 08/09/2025 10:11 AM CDT 08/09/2025 10:11 AM CDT Narrative [facility] ([facility]) - 08/11/2025 12:07 PM CDT Performed at: - [address] [id number] Building Energy Consultant: Geovany Johnston PhD, Phone: [phone] MeezN-TON CONTAINER SHIPPER LAB - CHEMISTRY ORDERABL ES Final Result Performing Organization Address City/[facility] Co de Phone Number [facility] ([facility]) [address] [place] [address] * TSH (08/09/2025 10:11 AM CDT) TSH 0.989 0.465 - 4.680 mIU/mL 08/09/2025 12:20 PM CDT [facility] ([facility]) Blood BLOOD SPECIMEN / Unknown Lab Venipuncture / Unknown 08/09/2025 10:11 AM CDT 08/09/2025 10:11 AM CDT MeezN-TON CONTAINER SHIPPER LAB - CHEMISTRY ORDERABL ES Final Result Performing Organization Address [facility] Co de Phone Number [facility] ([facility]) [address] [place] [address] * (ABNORMAL) LIPID PROFILE (08/09/2025 10:11 AM CDT) Cholesterol 215(H) 110 - 200 mg/dL 08/09/2025 12:20 PM CDT [facility] ([facility]) Triglycerides 144 40 - 150 mg/dL 08/09/2025 12:20 PM CDT [facility] ([facility]) HDL 39(L) 40 - 60 mg/dL 08/09/2025 12:20 PM CDT [facility] ([facility]) LDL Direct 135(H) 0 - 99 mg/dL 08/09/2025 12:20 PM CDT [facility] ([facility]) VLDL 29 0 - 40 mg/dL 08/09/2025 12:20 PM CDT [facility] ([facility]) CHOL/HDL RATIO 6.00(H) 0.00 - 4.98 08/09/2025 12:20 PM CDT [facility] ([facility]) Blood BLOOD SPECIMEN / Unknown Lab Venipuncture / Unknown 08/09/2025 10:11 AM CDT 08/09/2025 10:11 AM CDT Tawny [facility] SHOE PACKER-TON CONTAINER SHIPPER LAB - CHEMISTRY ORDERABL ES Final Result Performing Organization Address [facility]/ZIP Co de Phone Number [facility] ([facility]) [address] [place] [address] * (ABNORMAL) PT PTT PANEL (08/09/2025 10:08 AM CDT) PT 10.1 9.2 - 11.0 sec 08/09/2025 11:39 AM CDT [facility] ([facility]) INR 0.97(L) 2 - 4 08/09/2025 11:39 AM CDT [facility] ([facility]) PTT 28.7 20.6 - 31.1 sec 08/09/2025 11:39 AM CDT [facility] ([facility]) Blood BLOOD SPECIMEN / Unknown Lab Venipuncture / Unknown 08/09/2025 10:08 AM CDT 08/09/2025 10:11 AM CDT Narrative [facility] ([facility]) - 08/09/2025 11:39 AM CDT Therapeutic Ranges: Prophylaxis, treatment of DVT, PE......... 2.0-3.0 Tissue Heart Valves ..................................... 2.0-3.0 Acute MT ...................................... 2.5-3.5 Valvular Heart Disease ..........................2.5-3.5 Atrial Fibrillation ............................2.5-3.5 Mechanical Heart Vlave .............2.5-3.5 For more Informations see CHEST Vol 119/1 Supp (2000) Akil Figueroa MD LAB - COAGULATION ORDERABLES Fin al Result Performing Organization Address City/[facility]/ZIP Co de Phone Number [facility] ([facility]) [address] [place] [address] * EKG 12-Lead (08/09/2025 9:24 AM CDT) us Ashu Bright MD ECG ORDERABLES Final Result Performing Organization Address [facility]/ZIP Co de Phone Number [facility] * MRI Elbow Right [...] DATE/TIME OF EXAM: 07/30/2025 9:27 AM, LOCATION [facility] INDICATION: M25.521: Right elbow pain [...] CONTRAST, DATE/TIME OF EXAM: 59:27 AM, LOCATION [facility] INDICATION: M25.521: Right elbow pain [...] Jude Lopez DO on 07/30/2025 2:38 PM [facility] SHOE PACKER-TON CONTAINER SHIPPER MR ORDERABLES Final Re sult * (ABNORMAL) URINALYSIS DIPSTICK - POINT OF CARE (AMB) [facility] (07/18/2025 4:30 PM CDT) Color UA Yellow Yellow, Natalia [facility] Clarity UA Clear Clear, Hazy [facility] Specific Hyde UA 1.020 1.000, 1.005, 1.010, 1.015, 1.020, 1.025 [facility] pH UA 7.0 5.0, 5.5, 6.0, 6.5, 7.0, 7.5, 8.0, 8.5, 9.0 [facility] Protein UA Trace Negative, Trace [facility] Glucose UA Negative Negative [facility] Ketone UA Negative Negative [facility] Bilirubin UA Small(A) Negative [facility] Blood UA Moderate(A) Negative [facility] Leukocyte Esterase UA Small(A) Negative [facility] Nitrite UA Negative Negative [facility] Urobilinogen UA Negative 0.2 EU/dL, 1.0 EU/dL, Negative [facility] Urine URINE / Unknown 07/18/2025 4 :30 PM CDT [facility] SHOE PACKER-TON CONTAINER SHIPPER LAB - POINT OF CARE TRACY NINO Final Result [facility] [address] [place] [address], [facility] from Last 3 Months Insurance [employer] [facility] [facility] [employer] Advance Directives * Full Code (Latest Code Status on File) Date Activated Date Inactivated Comments 04/06/2020 9:13 PM 04/08/2020 5:33 PM Care Teams Office Electrician Relationship Specialty Start Date End Date Tawny Cooley, RA-TON CONTAINER SHIPPER PCP - General Nurse Practitioner Family 04/24/20 Akil Figueroa MD [address] [facility] [address] [facility] [address] [place] [address] Urology 07/23/24
--- OUTSIDE RECORDS SUMMARY | 2025-09-12 02:22 | XMS_ITS | Encounter Summary ---
Author Organization [employer] Address [address] [place] [address] Care Team Providers Care Research Pharmacist Name Role Phone Vazquez Mcleod MD Primary Care Provider [phone] Encounter Details Date Type Department Care Team (Late st Contact Info) Description 03/17/2000 Outpatient Historical [facility] [place] [address] [place] [address] Abdominal pain, unspecified site (Primary Dx) Social History Tobacco Use Types Packs/Day Years Used Date Smoking Tobacco: Never Assessed Sex and Gender Information Value Date Recorded Sex Assigned at Not on file Legal Sex Male 12:36 AM BELLMAN DRIVER Gender Identity Not on file Sexual Orientation Not on file documented as of this encounter Plan of Treatment Not on file documented as of this encounter Visit Diagnoses Diagnosis Abdominal pain, unspecified site- Primary documented in this encounter Additional Health Concerns Infection Onset Date Last Indicated Resolved Time R/O Respiratory 12/18/2023 12/18/2023 12/18/2023 1 0:55 PM BELLMAN DRIVER documented as of this encounter Care Teams Research Pharmacist Relationship Specialty [place] [address] [place] [address] PCP - General 07/21/00 03/16/20 documented as of this encounter
--- OUTSIDE RECORDS SUMMARY | 2025-09-12 02:22 | XMS_ITS | Encounter Summary ---
Author Organization [employer] Address [address] [place] [address] Care Team Providers Care Photographic Reproduction Technician Name Role Phone Vazquez Mcleod MD Primary Care Provider Encounter Details Date Type Department Care Team (Late st Contact Info) Description 07/21/2000 Outpatient Historical [facility] MRI DEPT Helio Lopez MD [address] DIV PED ALLERGY/IMMUNO/PULM O [place], [place] [id number] Unspecified sinusitis (chronic) (Primary Dx) Social History Tobacco Use Types Packs/Day Years Used Date Smoking Tobacco: Never Assessed Sex and Gender Information Value Date Recorded Sex Assigned at Not on file Legal Sex Male 12:36 AM DIESEL TRUCK DRIVER Gender Identity Not on file Sexual Orientation Not on file documented as of this encounter Plan of Treatment Not on file documented as of this encounter Visit Diagnoses Diagnosis Unspecified sinusitis (chronic)- Primary documented in this encounter Additional Health Concerns Infection Onset Date Last Indicated Resolved Time R/O Respiratory 12/18/2023 12/18/2023 12/18/2023 1 0:55 PM DIESEL TRUCK DRIVER documented as of this encounter Care Teams Photographic Reproduction Technician Relationship Specialty [place] [address] [place] [phone] PCP - General 07/21/00 03/16/20 documented as of this encounter
--- OUTSIDE RECORDS SUMMARY | 2025-09-12 02:22 | XMS_ITS | Encounter Summary ---
Author Organization [facility] Address [address] [address] Care Team Providers Care District Sales Coordinator Name Role Phone Ligiaeugenia Tawny KNAPP-BI ARCHITECT Primary Care Provider + Akil Figueroa MD Unavailable Encounter Details Date Type Department Care Team ([facility] st Contact Info) Description 08/19/2022 Op/Procedure Report External [facility] [address] [place] [phone] Document, Scanned Social History Tobacco Use Types [...] Sex Assigned at Male 10/21/2024 11:57 AM LIQUID LOADER Legal Sex Male 5:38 AM LIQUID LOADER Gender Identity Male 10/21/2024 11:57 AM LIQUID LOADER Sexual Orientation Straight 10/21/2024 11 :57 AM LIQUID LOADER COVID-19 Exposure Response Date Recorded In the [...] 09/19/2025 11:15 AM CDT Office Visit [address] [phone] Tawny Cooley APRN-CNP [address] [place] [phone] 01/16/2026 2:45 PM LIQUID LOADER Office Visit [address] [phone] Tawny Cooley APRN-CNP [address] [place] [phone] documented as of this encounter Visit Diagnoses Not on filedocumented in this encounter Additional Health Concerns Infection Onset Date Last Indicated Resolved Time COVID-19 Under Investigation 12/04/2024 12/04/2024 12/04/2024 2:14 PM LIQUID LOADER documented as of this encounter Care Teams District Sales Coordinator Relationship Specialty Start Date End Date Tawny Cooley APRN-NEENA PCP - General Nurse Practitioner Family 04/24/20 Akil Figueroa MD [address] [facility] [address] [facility] [address] [place] [address] Urology 07/23/24 documented as of this encounter
--- OUTSIDE RECORDS SUMMARY | 2025-09-12 02:22 | XMS_ITS | Encounter Summary ---
Author Organization [employer] Address [address] [place] [address] Care Team Providers Care Conductor/Engineer Name Role Phone Vazquez Mcleod MD Primary Care Provider [phone] Encounter Details Date Type Department Care Team (Late st Contact Info) Description 05/25/2000 Outpatient Historical [facility] Medicine [address] [place] [phone] [place] [address] [place] [address] Social History Tobacco Use Types Packs/Day Years Used Date Smoking Tobacco: Never Assessed Sex and Gender Information Value Date Recorded Sex Assigned at Not on file Legal Sex Male 12:36 AM HAND CLOTH EXAMINER Gender Identity Not on file Sexual Orientation Not on file documented as of this encounter Plan of Treatment Not on file documented as of this encounter Visit Diagnoses Not on filedocumented in this encounter Additional Health Concerns Infection Onset Date Last Indicated Resolved Time R/O Respiratory 12/18/2023 12/18/2023 12/18/2023 1 0:55 PM HAND CLOTH EXAMINER documented as of this encounter Care Teams Conductor/Engineer Relationship Specialty [place] [address] [place] [address] PCP - General 07/21/00 03/16/20 documented as of this encounter
--- OUTSIDE RECORDS SUMMARY | 2025-09-12 02:22 | XMS_ITS | Encounter Summary ---
Author Organization [employer] Address [address] [place] [address] Care Team Providers Care Transplant Worker Name Role Phone Vazquez Mcleod MD Primary Care Provider [phone] Encounter Details Date Type Department Care Team (Late st Contact Info) Description 04/11/2000 Outpatient Historical [facility] Medicine [address] [place] [phone] [place] [address] [place] [address] Social History Tobacco Use Types Packs/Day Years Used Date Smoking Tobacco: Never Assessed Sex and Gender Information Value Date Recorded Sex Assigned at Not on file Legal Sex Male 12:36 AM GLASS BEAD MAKER Gender Identity Not on file Sexual Orientation Not on file documented as of this encounter Plan of Treatment Not on file documented as of this encounter Visit Diagnoses Not on filedocumented in this encounter Additional Health Concerns Infection Onset Date Last Indicated Resolved Time R/O Respiratory 12/18/2023 12/18/2023 12/18/2023 1 0:55 PM GLASS BEAD MAKER documented as of this encounter Care Teams Transplant Worker Relationship Specialty Start [place] [address] [place] [address] PCP - General 07/21/00 03/16/20 documented as of this encounter
--- OUTSIDE RECORDS SUMMARY | 2025-09-12 02:22 | XMS_ITS | Clinical Summary ---
Author Organization [facility] Address [address] [place] [address] [place] [phone] Phone Care Team Providers Care Javascript Application Developer Name Role Phone Unavailable Primary Care Provider Unavailabl e Allergies Active Allergy Reactions Criticality Noted Date Comments Cefaclor Rash Low 10/03/2014 Iodinated Contrast Media Shortness of Breath/Wheezing High 10/03/2014 Sulfa (Sulfonamide Antibiotics) Hives High 10/03/2014 Tetanus Toxoid Swelling Low 10/03/2014 Medications theophylline (THEOCHRON) 100 mg Extended Release 12 hour tablet Take 300 mg by mouth every 12 hours. Active fluticasone-karissa meterol (ADVAIR DISKUS) 500-50 mcg/dose Disk with Device Take 1 Puff by inhalation 2 times daily. Active albuterol 90 mcg/Actuation HFA inhaler Take 2 Puffs by inhalation every 6 hours as needed for Shortness of Breath. Active OTHER Take 40 mg by mouth daily. Provider please include Medication name, dose, route and frequency Active Social History Tobacco Use Types Packs/Day Years Used Date Smoking Tobacco: Heavy Smoker Cigarettes 0.5 28 Tobacco Cessation:Ready to Q uit: Yes; Counseling Given: Yes Alcohol Use Standard Drinks/Week Comments Yes 0 (1 standard drink = 0.6 oz pur e alcohol) infrequently Sex and Gender Information Value Date Recorded Sex Assigned at Not on file Legal Sex Male 6:09 PM PIT WORKER POWER SHOVEL Gender Identity Not on file Sexual Orientation Not on file Last Filed Vital Signs Vital Sign Reading Time Taken Comments Blood Pressure 133/77 10/03/2014 6:21 PM PIT WORKER POWER SHOVEL Pulse 113 10/03/2014 6:21 PM PIT WORKER POWER SHOVEL Temperature 37 C (98.6 F) 10/03/2014 6:35 PM PIT WORKER POWER SHOVEL Respiratory Rate 18 10/03/2014 6:21 PM PIT WORKER POWER SHOVEL Oxygen Saturation 98% 10/03/2014 6:21 PM PIT WORKER POWER SHOVEL Inhaled Oxygen Concentration - - Weight 77.1 kg (170 lb) 10/03/2014 6:21 PM PIT WORKER POWER SHOVEL Height 139.7 cm (4' 7) 10/03/2014 6:21 PM PIT WORKER POWER SHOVEL Body Mass Index 39.51 10/03/2014 6:21 PM PIT WORKER POWER SHOVEL Plan of Treatment Health Maintenance Due Date Last Done Comments DTAP/TDAP/TD VACCINES (1 - Tdap) 1985 HEPATITIS B VACCINES (1 of 3 - 19+ 3-dose series) 03/20 COLORECTAL SCREENING 2011 Colorectal Cancer Screening 2011 FIT-DNA Q 3 years 2011 FIT/FOBT Q 1 year 2011 Flex Sig/CT Colonography Q 5 years 2011 ZOSTER VACCINE (1 of 2) 2016 INFLUENZA VACCINE (#1) 2025 Insurance [facility]
--- OUTSIDE RECORDS SUMMARY | 2025-09-12 02:22 | XMS_ITS | Encounter Summary ---
Author Organization [employer] Address [address] [place] [address] Care Team Providers Care Rock Crusher Operator Name Role Phone Vazquez Mcleod MD Primary Care Provider Encounter Details Date Type Department Care Team (Late st Contact Info) Description 09/26/2000 Emergency [facility] Monica Arana MD [address] [place] [address] [place] [address] Er, Authorized P NO ADDRESS ON FILE Renal colic (Primary Dx) Social History Tobacco Use Types Packs/Day Years Used Date Smoking Tobacco: Never Assessed Sex and Gender Information Value Date Recorded Sex Assigned at Not on file Legal Sex Male 12:36 AM HOUSING QUALITY STANDARD INSPECTOR Gender Identity Not on file Sexual Orientation Not on file documented as of this encounter Plan of Treatment Not on file documented as of this encounter Visit Diagnoses Diagnosis Renal colic- Primary documented in this encounter Additional Health Concerns Infection Onset Date Last Indicated Resolved Time R/O Respiratory 12/18/2023 12/18/2023 12/18/2023 1 0:55 PM HOUSING QUALITY STANDARD INSPECTOR documented as of this encounter Care Teams Rock Crusher Operator Relationship Specialty [place] [address] [place] [phone] PCP - General 07/21/00 03/16/20 documented as of this encounter
--- OUTSIDE RECORDS SUMMARY | 2025-09-12 02:22 | XMS_ITS | Encounter Summary ---
Author Organization [employer] Address [address] [place] [address] Care Team Providers Care Splunk Architect Name Role Phone Vazquez Mcleod MD Primary Care Provider [phone] Encounter Details Date Type Department Care Team (Late st Contact Info) Description 05/31/2000 Outpatient Historical [facility] Medicine [address] [place] [phone] [place] [address] [place] [address] Social History Tobacco Use Types Packs/Day Years Used Date Smoking Tobacco: Never Assessed Sex and Gender Information Value Date Recorded Sex Assigned at Not on file Legal Sex Male 12:36 AM HUMAN RESOURCES SUPPORT SPECIALIST Gender Identity Not on file Sexual Orientation Not on file documented as of this encounter Plan of Treatment Not on file documented as of this encounter Visit Diagnoses Not on filedocumented in this encounter Additional Health Concerns Infection Onset Date Last Indicated Resolved Time R/O Respiratory 12/18/2023 12/18/2023 12/18/2023 1 0:55 PM HUMAN RESOURCES SUPPORT SPECIALIST documented as of this encounter Care Teams Splunk Architect Relationship Specialty Start [place] [address] [place] [address] PCP - General 07/21/00 03/16/20 documented as of this encounter
--- OUTSIDE RECORDS SUMMARY | 2025-09-12 02:22 | XMS_ITS | Encounter Summary ---
Author Organization [facility] Address [address] [place] [address] Care Team Providers Care Film Or Videotape Editor Name Role Phone Ligiaeugenia Tawny KNAPP-MEASUREMENT COORDINATOR Primary Care Provider + Akil Figueroa MD Unavailable Encounter Details Date Type Department Care Team ([facility] st Contact Info) Description 08/19/2022 Op/Procedure Report External [facility] [address] [place] [phone] Document, Scanned Social History Tobacco Use Types [...] Sex Assigned at Male 10/21/2024 11:57 AM DIESEL POWER MECHANIC Legal Sex Male 5:38 AM DIESEL POWER MECHANIC Gender Identity Male 10/21/2024 11:57 AM DIESEL POWER MECHANIC Sexual Orientation Straight 10/21/2024 11 :57 AM DIESEL POWER MECHANIC COVID-19 Exposure Response Date Recorded In the last 10 days, have yo u been in contact with someone who was confirmed or suspected to have Coronavirus/COVID-19? No / Unsure 08/22/2022 2:07 PM CDT documented as of this encounter Functional Status * Is person deaf or have serious hearing difficulty? Answer Date of Assessment Author No 04/08/2020 4:06 PM CDT aYmil Franks RN * Is person blind or [...] Description 09/19/2025 11:15 AM CDT Office Visit [address] [phone] Tawny Cooley APRN-CNP [address] [place] [phone] 01/16/2026 2:45 PM DIESEL POWER MECHANIC Office Visit [address] [phone] Tawny Cooley APRN-CNP [address] [place] [phone] documented as of this encounter Visit Diagnoses Not on filedocumented in this encounter Additional Health Concerns Infection Onset Date Last Indicated Resolved Time COVID-19 Under Investigation 12/04/2024 12/04/2024 12/04/2024 2:14 PM DIESEL POWER MECHANIC documented as of this encounter Care Teams Film Or Videotape Editor Relationship Specialty Start Date End Date Tawny Cooley APRN-NEENA PCP - General Nurse Practitioner Family 04/24/20 Akil Figueroa MD [address] [facility] [address] [facility] [address] [place] [address] Urology 07/23/24 documented as of this encounter
--- OUTSIDE RECORDS SUMMARY | 2025-09-12 02:22 | XMS_ITS | Encounter Summary ---
Author Organization [facility] Address [address] [place] [address] Care Team Providers Care Entry Level Chemist Name Role Phone Liigaeugenia Tawny KNAPP-BED LASTER Primary Care Provider + Akil Figueroa MD Unavailable Encounter Details Date Type Department Care Team ([facility] st Contact Info) Description 08/19/2022 Op/Procedure Report External [facility] [address] [place] [id number] Document, Scanned Social History Tobacco Use Types [...] Sex Assigned at Male 10/21/2024 11:57 AM INSURANCE FOLLOW UP REPRESENTATIVE Legal Sex Male 5:38 AM INSURANCE FOLLOW UP REPRESENTATIVE Gender Identity Male 10/21/2024 11:57 AM INSURANCE FOLLOW UP REPRESENTATIVE Sexual Orientation Straight 10/21/2024 11 :57 AM INSURANCE FOLLOW UP REPRESENTATIVE COVID-19 Exposure Response Date Recorded In the [...] Description 09/19/2025 11:15 AM CDT Office Visit [address] [phone] Tawny Cooley APRN-CNP [address] [place] [phone] 01/16/2026 2:45 PM INSURANCE FOLLOW UP REPRESENTATIVE Office Visit [address] [phone] Tawny Cooley APRN-CNP [address] [place] [phone] documented as of this encounter Visit Diagnoses Not on filedocumented in this encounter Additional Health Concerns Infection Onset Date Last Indicated Resolved Time COVID-19 Under Investigation 12/04/2024 12/04/2024 12/04/2024 2:14 PM INSURANCE FOLLOW UP REPRESENTATIVE documented as of this encounter Care Teams Entry Level Chemist Relationship Specialty Start Date End Date Tawny Cooley APRN-NEENA PCP - General Nurse Practitioner Family 04/24/20 Akil Figueroa MD [address] [facility] [address] [facility] [address] [place] [address] Urology 07/23/24 documented as of this encounter
--- OUTSIDE RECORDS SUMMARY | 2025-09-12 02:22 | XMS_ITS | Encounter Summary ---
Author Organization [employer] Address [address] [place] [address] Care Team Providers Care Boat Mechanic Name Role Phone Vazquez Mcleod MD Primary Care Provider [phone] Encounter Details Date Type Department Care Team (Late st Contact Info) Description 03/21/2000 Outpatient Historical [facility] Medicine [address] [place] [phone] [place] [address] [place] [address] Social History Tobacco Use Types Packs/Day Years Used Date Smoking Tobacco: Never Assessed Sex and Gender Information Value Date Recorded Sex Assigned at Not on file Legal Sex Male 12:36 AM MERGERS AND ACQUISITIONS ASSOCIATE Gender Identity Not on file Sexual Orientation Not on file documented as of this encounter Plan of Treatment Not on file documented as of this encounter Visit Diagnoses Not on filedocumented in this encounter Additional Health Concerns Infection Onset Date Last Indicated Resolved Time R/O Respiratory 12/18/2023 12/18/2023 12/18/2023 1 0:55 PM MERGERS AND ACQUISITIONS ASSOCIATE documented as of this encounter Care Teams Boat Mechanic Relationship Specialty [place] [address] [place] [address] PCP - General 07/21/00 03/16/20 documented as of this encounter
--- OUTSIDE RECORDS SUMMARY | 2025-09-12 02:22 | XMS_ITS | Encounter Summary ---
Author Organization [employer] Address [address] [place] [address] Care Team Providers Care Submarine Worker Name Role Phone Vazquez Mcleod MD Primary Care Provider [phone] Encounter Details Date Type Department Care Team (Late st Contact Info) Description 06/13/2001 Emergency [facility] Matti Hernández MD [facility] [place] [address] Er, Authorized P NO ADDRESS ON FILE Urethritis, unspecified (Primary Dx) Social History Tobacco Use Types Packs/Day Years Used Date Smoking Tobacco: Never Assessed Sex and Gender Information Value Date Recorded Sex Assigned at Not on file Legal Sex Male 12:36 AM JEWEL SETTER Gender Identity Not on file Sexual Orientation Not on file documented as of this encounter Plan of Treatment Not on file documented as of this encounter Visit Diagnoses Diagnosis Urethritis, unspecified- Primary documented in this encounter Additional Health Concerns Infection Onset Date Last Indicated Resolved Time R/O Respiratory 12/18/2023 12/18/2023 12/18/2023 1 0:55 PM JEWEL SETTER documented as of this encounter Care Teams Submarine Worker Relationship Specialty [place] [address] [address] [place] [phone] PCP - General 07/21/00 03/16/20 documented as of this encounter
--- OUTSIDE RECORDS SUMMARY | 2025-09-12 02:22 | XMS_ITS | Encounter Summary ---
Author Organization [employer] Address [address] [place] [address] Care Team Providers Care Automobile Body Customizer Name Role Phone Vazquez Mcleod MD Primary Care Provider [phone] Encounter Details Date Type Department Care Team (Late st Contact Info) Description 04/06/2001 Outpatient Historical [facility] Medicine [address] [place] [phone] [place] [address] [place] [address] Social History Tobacco Use Types Packs/Day Years Used Date Smoking Tobacco: Never Assessed Sex and Gender Information Value Date Recorded Sex Assigned at Not on file Legal Sex Male 12:36 AM SEWER PIPE CLEANER Gender Identity Not on file Sexual Orientation Not on file documented as of this encounter Plan of Treatment Not on file documented as of this encounter Visit Diagnoses Not on filedocumented in this encounter Additional Health Concerns Infection Onset Date Last Indicated Resolved Time R/O Respiratory 12/18/2023 12/18/2023 12/18/2023 1 0:55 PM SEWER PIPE CLEANER documented as of this encounter Care Teams Automobile Body Customizer Relationship Specialty Start [place] [address] [place] [address] PCP - General 07/21/00 03/16/20 documented as of this encounter
--- OUTSIDE RECORDS SUMMARY | 2025-09-12 02:22 | XMS_ITS | Encounter Summary ---
Author Organization [facility] Address [address] [place] [address] Care Team Providers Care Grain Thresher Name Role Phone Vazquez Mcleod MD Primary Care Provider [phone] Encounter Details Date Type Department Care Team (Latest Contact Info) Description 04/12/2001 Outpatient Historical [facility] LAURA Hauser, Xavier Fall MD [address] [place] [address] Calculus of kidney (Primary Dx) Social History Tobacco Use Types Packs/Day Years Used Date Smoking Tobacco: Never Assessed Sex and Gender Information Value Date Recorded Sex Assigned at Not on file Legal Sex Male 12:36 AM HEMMER LOCKSTITCH Gender Identity Not on file Sexual Orientation Not on file documented as of this encounter Plan of Treatment Not on file documented as of this encounter Visit Diagnoses Diagnosis Calculus of kidney- Primary documented in this encounter Additional Health Concerns Infection Onset Date Last Indicated Resolved Time R/O Respiratory 12/18/2023 12/18/2023 12/18/2023 1 0:55 PM HEMMER LOCKSTITCH documented as of this encounter Care Teams Grain Thresher Relationship Specialty [place] [address] [place] [address] PCP - General 07/21/00 03/16/20 documented as of this encounter
--- OUTSIDE RECORDS SUMMARY | 2025-09-12 02:22 | XMS_ITS | Encounter Summary ---
Author Organization [employer] Address [address] [place] [address] Care Team Providers Care Biology Instructor Name Role Phone Vazquez Mcleod MD Primary Care Provider [phone] Encounter Details Date Type Department Care Team (Late st Contact Info) Description 05/16/2000 Outpatient Historical [facility] Medicine [address] [place] [phone] [place] [address] [place] [address] Social History Tobacco Use Types Packs/Day Years Used Date Smoking Tobacco: Never Assessed Sex and Gender Information Value Date Recorded Sex Assigned at Not on file Legal Sex Male 12:36 AM TILE MOLDER HAND Gender Identity Not on file Sexual Orientation Not on file documented as of this encounter Plan of Treatment Not on file documented as of this encounter Visit Diagnoses Not on filedocumented in this encounter Additional Health Concerns Infection Onset Date Last Indicated Resolved Time R/O Respiratory 12/18/2023 12/18/2023 12/18/2023 1 0:55 PM TILE MOLDER HAND documented as of this encounter Care Teams Biology Instructor Relationship Specialty [place] [address] [place] [address] PCP - General 07/21/00 03/16/20 documented as of this encounter
--- OUTSIDE RECORDS SUMMARY | 2025-09-12 02:22 | XMS_ITS | Encounter Summary ---
Author Organization [facility] Address [address] [place] [address] Care Team Providers Care Tape Control Skin Or Spar Mill Operator Name Role Phone Tawny Cooley APRN-BOX STORAGE WORKER Primary Care Provider + Akil Figueroa MD Unavailable Reason for Visit * Reason Onset Date Comments Durable Medical Equipment 07/24/2025 Encounter Details Date Type Department Care Team ([facility] st Contact Info) Description 07/24/2025 Telephone [facility] [address] [place] [address] Tawny Cooley APRN-CNP [address] [place] [address] Durable Medical Equipment Social History [...] Sex Assigned at Male 10/21/2024 11:57 AM HEAD OF MARKETING ANALYTICS Legal Sex Male 5:38 AM HEAD OF MARKETING ANALYTICS Gender Identity Male 10/21/2024 11:57 AM HEAD OF MARKETING ANALYTICS Sexual Orientation Straight 10/21/2024 11 :57 AM HEAD OF MARKETING ANALYTICS documented as of this encounter Functional Status [...] like to get this from [facility] in [place] or Yoni Blum in [place] if unable to get from [facility]. documented in this encounter Plan of Treatment Upcoming Encounters Date Type Department Care Team (Late st Contact Info) Description 09/19/2025 11:15 AM CDT Office Visit [facility] [address] [place] [phone] Tawny Cooley APRN-BOX STORAGE WORKER [address] [place] [phone] 01/16/2026 2:45 PM HEAD OF MARKETING ANALYTICS Office Visit [address] [phone] Tawny Cooley APRN-NEENA [address] [place] [address] documented as of this encounter Visit Diagnoses Not on filedocumented in this encounter Care Teams Tape Control Skin Or Spar Mill Operator Relationship Specialty Start Date End Date Tawny Cooley APRN-CNP PCP - General Nurse Practitioner Family 04/24/20 Akil Figueroa MD [address] [facility] 162 [facility] [address] [place] [address] Urology 07/23/24 documented as of this encounter
--- OUTSIDE RECORDS SUMMARY | 2025-09-12 02:22 | XMS_ITS | Encounter Summary ---
Author Organization [facility] Address [address] [place] [address] Care Team Providers Care Machine Learning Intern Name Role Phone Tawny Cooley Primary Care Provider + Akil Figueroa MD Unavailable Reason for Visit * Reason Onset Date Comments Results 07/30/2025 Encounter Details Date Type Department Care Team ([facility] Contact Info) Description 07/30/2025 Results Follow-Up [facility] Medicine [address] [place] [address] Tawny Cooley APRN-CNP [address] [place] [phone] Results Social History Tobacco Use [...] Sex Assigned at Male 10/21/2024 11:57 AM MAIL DELIVERER Legal Sex Male 5:38 AM MAIL DELIVERER Gender Identity Male 10/21/2024 11:57 AM MAIL DELIVERER Sexual Orientation Straight 10/21/2024 11 :57 AM MAIL DELIVERER documented as of this encounter Functional Status [...] the possibility of the steroid injection. # [phone] for Luca documented in this encounter Plan of Treatment Upcoming Encounters Date Type Department Care Team (Late st Contact Info) Description 09/19/2025 11:15 AM CDT Office Visit [address] [phone] Tawny Cooley CITY WELLNESS COORDINATOR-RELAY TESTER HELPER [address] [place] [phone] 01/16/2026 2:45 PM MAIL DELIVERER Office Visit [address] [address] Tawny Cooley APRN-RELAY TESTER HELPER [address] [place] [phone] documented as of this encounter Visit Diagnoses Not on filedocumented in this encounter Care Teams Machine Learning Intern Relationship Specialty Start Date End Date Tawny Cooley APRN-RELAY TESTER HELPER PCP - General Nurse Practitioner Family 04/24/20 Akil Figueroa MD [address] [facility] 162 [facility] [address] [place] [address] Urology 07/23/24 documented as of this encounter
--- OUTSIDE RECORDS SUMMARY | 2025-09-12 02:22 | XMS_ITS | Encounter Summary ---
Author Organization [employer] Address [address] [place] [address] Care Team Providers Care Grease Cup Filler Name Role Phone Vazquez Mcleod MD Primary Care Provider [phone] Encounter Details Date Type Department Care Team (Late st Contact Info) Description 07/18/2000 Outpatient Historical [facility] Medicine [address] [place] [phone] [place] [address] [place] [address] Social History Tobacco Use Types Packs/Day Years Used Date Smoking Tobacco: Never Assessed Sex and Gender Information Value Date Recorded Sex Assigned at Not on file Legal Sex Male 12:36 AM REPAIRER ENGINE PRODUCTION Gender Identity Not on file Sexual Orientation Not on file documented as of this encounter Plan of Treatment Not on file documented as of this encounter Visit Diagnoses Not on filedocumented in this encounter Additional Health Concerns Infection Onset Date Last Indicated Resolved Time R/O Respiratory 12/18/2023 12/18/2023 12/18/2023 1 0:55 PM REPAIRER ENGINE PRODUCTION documented as of this encounter Care Teams Grease Cup Filler Relationship Specialty [place] [address] [place] [address] PCP - General 07/21/00 03/16/20 documented as of this encounter
--- OUTSIDE RECORDS SUMMARY | 2025-09-12 02:22 | XMS_ITS | Encounter Summary ---
Author Organization [employer] Address [address] [place] [address] Care Team Providers Care House Calls Nurse Practitioner Name Role Phone Vazquez Mcleod MD Primary Care Provider [phone] Encounter Details Date Type Department Care Team (Late st Contact Info) Description 03/16/2000 Outpatient Historical [facility] Medicine [address] [place] [phone] [place] [address] [place] [address] Social History Tobacco Use Types Packs/Day Years Used Date Smoking Tobacco: Never Assessed Sex and Gender Information Value Date Recorded Sex Assigned at Not on file Legal Sex Male 12:36 AM ATTENDANT SALES Gender Identity Not on file Sexual Orientation Not on file documented as of this encounter Plan of Treatment Not on file documented as of this encounter Visit Diagnoses Not on filedocumented in this encounter Additional Health Concerns Infection Onset Date Last Indicated Resolved Time R/O Respiratory 12/18/2023 12/18/2023 12/18/2023 1 0:55 PM ATTENDANT SALES documented as of this encounter Care Teams House Calls Nurse Practitioner Relationship Specialty Start [place] [address] [place] [address] PCP - General 07/21/00 03/16/20 documented as of this encounter
--- OUTSIDE RECORDS SUMMARY | 2025-09-12 02:22 | XMS_ITS | Encounter Summary ---
Author Organization [employer] Address [address] [place] [address] Care Team Providers Care Well Driller Helper Name Role Phone Vazquez Mcleod MD Primary Care Provider [phone] Encounter Details Date Type Department Care Team (Late st Contact Info) Description 03/07/2000 Outpatient Historical [facility] Medicine [address] [place] [phone] [place] [address] [place] [address] Social History Tobacco Use Types Packs/Day Years Used Date Smoking Tobacco: Never Assessed Sex and Gender Information Value Date Recorded Sex Assigned at Not on file Legal Sex Male 12:36 AM CULLET WASHER Gender Identity Not on file Sexual Orientation Not on file documented as of this encounter Plan of Treatment Not on file documented as of this encounter Visit Diagnoses Not on filedocumented in this encounter Additional Health Concerns Infection Onset Date Last Indicated Resolved Time R/O Respiratory 12/18/2023 12/18/2023 12/18/2023 1 0:55 PM CULLET WASHER documented as of this encounter Care Teams Well Driller Helper Relationship Specialty Start [place] [address] [place] [address] PCP - General 07/21/00 03/16/20 documented as of this encounter
--- OUTSIDE RECORDS SUMMARY | 2025-09-12 02:22 | XMS_ITS | Encounter Summary ---
Author Organization [employer] Address [address] [place] [address] Care Team Providers Care Security System Installer Name Role Phone Vazquez Mcleod MD Primary Care Provider Encounter Details Date Type Department Care Team (Latest Contact Info) Description 03/08/2000 Outpatient Historical [facility],[place] [address] [place] [address] Calculus of kidney (Primary Dx) Social History Tobacco Use Types Packs/Day Years Used Date Smoking Tobacco: Never Assessed Sex and Gender Information Value Date Recorded Sex Assigned at Not on file Legal Sex Male 12:36 AM CANCER PROGRAM COORDINATOR Gender Identity Not on file Sexual Orientation Not on file documented as of this encounter Plan of Treatment Not on file documented as of this encounter Visit Diagnoses Diagnosis Calculus of kidney- Primary documented in this encounter Additional Health Concerns Infection Onset Date Last Indicated Resolved Time R/O Respiratory 12/18/2023 12/18/2023 12/18/2023 1 0:55 PM CANCER PROGRAM COORDINATOR documented as of this encounter Care Teams Security System Installer Relationship Specialty Start [place] [address] [place] [address] PCP - General 07/21/00 03/16/20 documented as of this encounter
--- OUTSIDE RECORDS SUMMARY | 2025-09-12 02:22 | XMS_ITS | Encounter Summary ---
Author Organization [employer] Address [address] [place] [address] Care Team Providers Care Recreation Therapist Name Role Phone Vazquez Mcleod MD Primary Care Provider [phone] Encounter Details Date Type Department Care Team (Late st Contact Info) Description 02/17/2000 Outpatient Historical [facility] Medicine [address] [place] [phone] [place] [address] [place] [address] Social History Tobacco Use Types Packs/Day Years Used Date Smoking Tobacco: Never Assessed Sex and Gender Information Value Date Recorded Sex Assigned at Not on file Legal Sex Male 12:36 AM DIRECTOR GENERAL Gender Identity Not on file Sexual Orientation Not on file documented as of this encounter Plan of Treatment Not on file documented as of this encounter Visit Diagnoses Not on filedocumented in this encounter Additional Health Concerns Infection Onset Date Last Indicated Resolved Time R/O Respiratory 12/18/2023 12/18/2023 12/18/2023 1 0:55 PM DIRECTOR GENERAL documented as of this encounter Care Teams Recreation Therapist Relationship Specialty Start [place] [address] [place] [address] PCP - General 07/21/00 03/16/20 documented as of this encounter
--- NOTE | 2025-09-12 06:28 | WPDHPUPDATE1 ---
History and Physical Update Update Date/Time: 09/12/25 06:28 History and Physical has been reviewed, including an updated exam of the patient. There are NO changes in the patient's condition. Risks, benefits, and alternatives have been discussed and questions answered. Patient agrees to proceed with procedure.
[2025-09-12 12:34] LABS: Add Urine Microscopic? YES; Appearance Urine Clear (Clear); Glucose Urine UA Negative (Negative); Leukocyte Esterase Ur Trace LEU/UL (Negative); Nitrate Urine Negative (Negative); Non Pathogenic Casts 0-2; Specific Grav Ur 1.018 (1.001-1.035)
[2025-09-12] MEDS: LACTATED RINGERS 1,000 ML 30 ML IV CONT (13:00)
[2025-09-12 13:25] LABS: INR 1.1; Prothrombin Time 13.9 Seconds (11.1-14.7)
[2025-09-12 13:26] LABS: Partial Thromboplastin Time 33.2 Seconds (22.3-36.8)
--- NOTE | 2025-09-12 13:38 | WPDANESEPPF ---
Anes - Initial Pre Proc Eval Procedure: Operation Date: 09/12/25 14:30 Proposed Procedures p Right Extracorporeal Shock Wave Lithotripsy - Holden Figueroa MD Date/Time: 09/12/25 13:38 Surgeon: Holden Figueroa MD Pre Op Diagnosis: Rt Renal Stone Patient Data Age: 60 Gender: M Height: 1.65 m Weight: 82.6 kg Last Vital Signs Temp 36.4 C 09/12/25 13:09 Pulse 90 09/12/25 13:09 Resp 16 09/12/25 13:09 BP 151/58 H 09/12/25 13:09 Pulse Ox 100 09/12/25 13:09 O2 Del Method Room Air 09/12/25 13:09 Allergies Allergy/AdvReac Type Severity Reaction Status Date / Time Iodinated Contrast Media Allergy Severe Anaphylactic Verified 09/04/25 11:57 Shock levofloxacin (From Levaquin) Allergy Severe Anaphylactic Verified 09/04/25 11:57 Shock Sulfa (Sulfonamide Allergy Severe Hives Verified 09/04/25 11:57 Antibiotics) tetanus and diphtheria Allergy Severe Swelling Verified 09/04/25 11:57 toxoids Home Medications ?Medication ?Instructions ?Recorded ?Confirmed ?Type albuterol sulfate 90 mcg/actuation 2 inh inhalation [id number] PRN 06/20/24 09/12/25 History aerosol inhaler Dyspnea fluticasone 250 mcg-salmeterol 50 1 inh inhalation BID 06/20/24 09/04/25 History mcg/dose blistr powdr for inhalation meloxicam 7.5 mg tablet 7.5 mg PO DAILY PRN Pain 06/20/24 09/04/25 History montelukast 10 mg tablet 10 mg PO HS 06/20/24 09/04/25 History tamsulosin 0.4 mg capsule 0.4 mg PO HS 06/20/24 09/04/25 History hydrocodone 5 mg-acetaminophen 325 1 - 2 tablet PO Q6H PRN pain #20 08/15/25 09/12/25 Rx mg tablet tabs famotidine 40 mg tablet 40 mg PO BID PRN acid reflux 09/04/25 09/04/25 History Laboratory Tests 09/12/25 09/12/25 12:23 12:46 PT 13.9 Seconds (11.1-14.7) INR 1.1 APTT 33.2 Seconds (22.3-36.8) Urine Color Yellow (Yellow) Urine Appearance Clear (Clear) Urine pH 6.5 (5.0-9.0) Ur Specific [place] 1.018 (1.001-1.035) Urine Protein Negative mg/dL (Negative) Urine Glucose (UA) Negative mg/dL (Negative) Urine Ketones Negative mg/dL (Negative) Ur Blood (Man) Negative (Negative) Urine Nitrate Negative (Negative) Urine Bilirubin Negative (Negative) Urine Urobilinogen 0.2 mg/dL (<2.0) Leukocyte Esterase Rfl Trace H BUBBA/UL (Negative) Urine RBC 0-2 /hpf (0-2) Urine WBC 0-5 /hpf (0-3) Ur Squamous Epith Cells None seen /hpf (Few) Urine Bacteria None seen /hpf Urine Casts 0-2 Patient hx anesthesia problems: none Family hx anesthesia problems: none Results Review: All pre-operative results and documents have been reviewed as part of the pre-operative evaluation. [facility] Past Medical History Medical History Hiatal hernia Asthma COPD (chronic obstructive pulmonary disease) Obesity History of renal stone Surgical History Surgical History H/O nasal septoplasty H/O lithotripsy Social History Social History Smoking packs per day: 1 Smoking cigarettes per day: 20.0 Years smoked: 35 Smoking pack-years: 35.00 Smoking status: Current every day smoker Tobacco type: cigarettes and e-cigarettes/vaping Smoking end date: 06/17/24 Additional smoking assessment comments: Trying to cut back. Alcohol intake: current Substance use: former Substance use type: marijuana Other substance usage details: 15 years ago. Living arrangements: with family Spiritual care concerns: No Anes - Eval Final PreProcedure Day of Procedure 09/12/25 13:38 Patient weight: obese Heart: regular rate and rhythm Lungs: clear to auscultation Airway: Mallampati scale class II Neurological: alert and oriented Last oral intake: >/= 8 hours ASA classification: III Emergent: no Anesthetic plan: proceed Anesthesia type and monitoring: general LMA and standard monitoring Results Review: All pre-operative results and documents have been reviewed as part of the pre-operative evaluation. Informed Consent: The patient's anesthetic plan and its attendant risks and benefits were discussed with the patient/family/POA. Questions were solicited and answers provided to the satisfaction of the patient/family/POA.
[2025-09-12] MEDS: ceFAZolin 2 GM in SODIUM CHLORIDE 0.9% IV 50 ML 100 ML IVPB (13:42)
[2025-09-12] MEDS: KETOROLAC 15 MG/ML VIAL (*BKC) IV PUSH (13:51)
--- NOTE | 2025-09-12 13:51 | W.PM.PROC2 ---
Procedure Note - Detailed Date of Procedure 09/12/25 Pre-op Diagnosis Rt Renal Stone Post-op Diagnosis Same Procedure Performed Right ESWL Surgeon Holden Figueroa MD Anesthesia General Description of Procedure The patient was brought to the operative suite where he was placed in the supine position on the Dornier lithotripsy table. The focal point of the lithotripter was placed at a 6-7mm residual stone fragment in right kidney. A total of 2500 shocks were delivered at a power setting of 4. There appeared to be good fragmentation of the stone. The patient tolerated the procedure well and was taken to the recovery room in good condition.
== END 2025-09-12 16:03 | disposition home or self-care (01) ==
PROVIDERS: Visit Provider Urology
PROC: (CPT 50590; principal; 2025-09-12 14:30)
DX: N20.0 Calculus of kidney (principal); J44.9 Chronic obstructive pulmonary disease, unspecified; F17.210 Nicotine dependence, cigarettes, uncomplicated; F17.290 Nicotine dependence, other tobacco product, uncomplicated; E66.9 Obesity, unspecified; Z68.30 Body mass index [BMI] 30.0-30.9, adult; Z79.51 Long term (current) use of inhaled steroids; Z79.891 Long term (current) use of opiate analgesic; Z98.890 Other specified postprocedural states; Z87.19 Personal history of other diseases of the digestive system
CPT/HCPCS: 50590; 36415; 74018; 81001; 85610; 85730; J0690; J1885; J2003; J2704; J7120